=== PATIENT | female | born 1935 | race American Indian/Alaskan Native ===

== ENCOUNTER 2018-02-27 11:54 | Inpatient (IN) | payer MEDICARE ==
--- NOTE | 2018-02-27 12:36 | ED PDOC ---
Arrival/HPI - General Chief Complaint: Shortness Of Breath Time Seen by Provider: 02/27/18 12:32 Historian: Patient - History of Present Illness Narrative History of Present Illness (Text): 02/27/18 12:36 82 year old female, with past medical history of hypertension, diabetes and hyperlipidemia, presents to the Emergency Department accompanied by daughter complaining of shortness of breath associated with non-productive cough since last night. Patient informs worsening symptoms this morning prompting her to present to the Emergency Department for medical evaluation. Patient states mild chest wall discomfort and bilateral ribcage discomfort secondary to coughing. Patient informs associated subjective fever prior to onset but none today. Patient denies any recent sick contact or hospitalization. Patient denies any nausea, vomiting, diarrhea, abdominal pain, neck pain, back pain, dysuria, hematuria, headache, dizziness, or any other complaints. PMD: Dr. Phillips Time/Duration: 4-6 hours Symptom Onset: Gradual Symptom Course: Worsening Activities at Onset: Light Context: Home Past Medical History - Provider Review Nursing Documentation Reviewed: Yes - Cardiac Hx Cardiac Disorders: Yes Hx Hypertension: Yes - Pulmonary Hx Respiratory Disorders: No - Neurological Hx Neurological Disorder: No - HEENT Hx HEENT Disorder: Yes Hx Blind: Yes - Renal Hx Renal Disorder: No - Endocrine/Metabolic Hx Endocrine Disorders: Yes Hx Diabetes Mellitus Type 2: Yes - Hematological/Oncological Hx Blood Disorders: No - Integumentary Hx Dermatological Disorder: No - Musculoskeletal/Rheumatological Hx Musculoskeletal Disorders: Yes Hx Arthritis: Yes Hx Spinal Stenosis: Yes - Gastrointestinal Hx Gastrointestinal Disorders: No - Genitourinary/Gynecological Hx Genitourinary Disorders: No - Psychiatric Hx Psychophysiologic Disorder: No Hx Substance Use: No - Surgical History Hx Cataract Extraction: Yes Hx Orthopedic Surgery: Yes - Anesthesia Hx Anesthesia: No Hx Anesthesia Reactions: No Hx Malignant Hyperthermia: No Family/Social History - Physician Review Nursing Documentation Reviewed: Yes Family/Social History: No Known Family HX Smoking Status: Never Smoked Hx Alcohol Use: No Hx Substance Use: No Allergies/Home Meds Allergies/Adverse Reactions: Allergies No Known Allergies Allergy (Verified 09/17/15 17:31) Home Medications: Home Meds Medication Instructions Recorded Confirmed Aspirin [Ecotrin] 81 mg PO DAILY 02/27/18 02/27/18 Atorvastatin [Lipitor] 20 mg PO DAILY 02/27/18 02/27/18 Clopidogrel [Plavix] 1 tab PO DAILY 02/27/18 02/27/18 Docusate [Colace] 100 mg PO BID 02/27/18 02/27/18 Gabapentin [Neurontin] 1 tab PO TID 02/27/18 02/27/18 Metoprolol Succinate [Toprol Xl] 100 mg PO DAILY 02/27/18 02/27/18 Montelukast [Singulair] 1 tab PO DAILY 02/27/18 02/27/18 Omeprazole 20 mg PO DAILY 02/27/18 02/27/18 amLODIPine [Norvasc] 1 tab PO DAILY 02/27/18 02/27/18 Review of Systems - Physician Review All systems were reviewed & negative as marked: Yes - Review of Systems Constitutional: Fevers (subjective fever) Respiratory: SOB, Cough Cardiovascular: absent: Chest Pain Gastrointestinal: absent: Abdominal Pain, Diarrhea, Nausea, Vomiting Genitourinary Female: absent: Dysuria, Hematuria, Urine Output Changes Musculoskeletal: absent: Back Pain, Neck Pain Neurological: absent: Headache, Dizziness Physical Exam Vital Signs Reviewed: Yes Vital Signs Temp Pulse Resp BP Pulse Ox 02/27/18 12:08 98.9 F 96 H 20 120/54 L 96 Temperature: Afebrile Blood Pressure: Normal Pulse: Regular Respiratory Rate: Normal Appearance: Positive for: Non-Toxic, Comfortable, Other (Obese) Pain Distress: None Mental Status: Positive for: Alert and Oriented X 3 - Systems Exam Head: Present: Atraumatic, Normocephalic Mouth: Present: Moist Mucous Membranes Neck: Present: Normal Range of Motion. No: JVD Respiratory/Chest: Present: Good Air Exchange, Other (Some left base crackles). No: Respiratory Distress, Accessory Muscle Use, Wheezes, Rhonchi, Tender to Palpation (No chest wall tenderness. Bilateral rib cage tenderness. ) Cardiovascular: Present: Regular Rate and Rhythm, Normal S1, S2. No: Murmurs Abdomen: No: Tenderness, Distention, Peritoneal Signs Back: Present: Normal Inspection Upper Extremity: Present: Normal Inspection. No: Cyanosis, Edema Lower Extremity: Present: Normal Inspection, Edema (chronic bilateral +1 pittin edema ) Neurological: Present: GCS=15, CN II-XII Intact, Speech Normal Skin: Present: Warm, Dry, Normal Color. No: Rashes Psychiatric: Present: Alert, Oriented x 3, Normal Insight, Normal Concentration Medical Decision Making ED Course and Treatment: 02/27/18 12:37 Impression: 82 year old female presents to the Emergency Department complaining of shortness of breath and cough. Differential Diagnosis included but are not limited to: Pneumonia Plan: -- EKG -- Labs -- Chest X-ray -- Blood Culture -- Reassess and disposition Prior Visits: Notes and results from previous visits were reviewed. Progress Notes: 02/27/18 12:10 EKG: Ordered, reviewed, and independently interpreted the EKG. Rate : 96 BPM Rhythm : NSR Interpretation : Normal interval, Normal axis. LVH, no st elevation, non specific t wave abnormalities. 02/27/18 14:[address] Cruz, who is aware and agrees with Emergency Department management plan, accepts patient admission under his service and requests Dr. Traylor on consult. As per request, patient will be given IV Lasix and admitted to the hospital. Patient now states she takes Lasix only when she is going to go out. Patient was made aware, who agrees with plan and admission. 02/27/18 15:10 Chest X-ray reviewed by radiologist, shows: FINDINGS: LUNGS: No active pulmonary disease. PLEURA: No significant pleural effusion identified, no pneumothorax apparent. CARDIOVASCULAR: There is moderate vascular congestion. The heart is normal in size. OSSEOUS STRUCTURES: No significant abnormalities. VISUALIZED UPPER ABDOMEN: Normal. OTHER FINDINGS: None. IMPRESSION: Moderate vascular congestion. The heart is normal in size 02/27/18 19:46 - RAD Interpretation Scoop Filler: Radiologist - [place] Statement The provider has reviewed the documentation as recorded by the Holdenibalberta Brown. All medical record entries made by the Leida were at my direction and personally dictated by me. I have reviewed the chart and agree that the record accurately reflects my personal performance of the history, physical exam, medical decision making, and the department course for this patient. I have also personally directed, reviewed, and agree with the discharge instructions and disposition. Disposition/Present on Arrival - Present on Arrival Any Indicators Present on Arrival: No History of DVT/PE: No History of Uncontrolled Diabetes: No Urinary Catheter: No History of Decub. Ulcer: No History Surgical Site Infection Following: None - Disposition Have Diagnosis and Disposition been Completed?: Yes Diagnosis: Dyspnea, Troponin I above reference range, Hyperglycemia Disposition: HOSPITALIZED Disposition Time: 14:20 Patient Plan: Admission Condition: STABLE
[2018-02-27 13:19] LABS: BASO # 0.01 K/mm3 (0.0-2.0); BASO % 0.1 % (0.0-3.0); EOS % 0.2 % (1.5-5.0); GRAN # 9.3 (1.4-6.5); GRAN % 86.9 % (50.0-68.0); HEMOGLOBIN 10.7 g/dL (12.0-16.0); LYMPH # 0.8 (1.2-3.4); LYMPH % 7.9 % (22.0-35.0); MEAN CELL VOLUME 88.2 fl (80.0-105.0); MEAN CORPUSCULAR HEMOGLOBIN 27.4 pg (25.0-35.0); MEAN CORPUSCULAR HGB CONC 31.1 g/dl (31.0-37.0); MEAN PLATELET VOLUME 11.3 fl (7.0-11.0); MONO # 0.5 (0.1-0.6); MONO % 4.9 % (1.0-6.0); RBC 3.9 10^6/uL (3.5-6.1); RED CELL DISTRIBUTION WIDTH 14.3 % (11.5-14.5); WHITE BLOOD COUNT 10.7 10^3/ul (4.5-11.0)
[2018-02-27 13:36] LABS: ALB/GLOB RATIO 1.1 (1.1-1.8); ALBUMIN 3.9 g/dL (3.0-4.8); ALT/SGPT 26 U/L (7-56); AST/SGOT 46 U/L (14-36); BLOOD UREA NITROGEN 9 mg/dL (7-21); CALCIUM 8.6 mg/dL (8.4-10.5); GFR NON-AFRICAN AMERICAN > 60
[2018-02-27 13:37] LABS: B-TYPE NATRIURETIC PEPTIDE 270 pg/mL (0-450); TROPONIN I 0.11 ng/mL
--- NOTE | 2018-02-27 13:56 | RAD ---
Date of service: 02/27/2018 HISTORY: cough, sob COMPARISON: No prior. FINDINGS: LUNGS: No active pulmonary disease. PLEURA: No significant pleural effusion identified, no pneumothorax apparent. CARDIOVASCULAR: There is moderate vascular congestion. The heart is normal in size. OSSEOUS STRUCTURES: No significant abnormalities. VISUALIZED UPPER ABDOMEN: Normal. OTHER FINDINGS: None. IMPRESSION: Moderate vascular congestion. The heart is normal in size
--- NOTE | 2018-02-27 14:58 | CARD ---
APPROVED REPORT Date of service: 02/27/2018 EKG Measurement Heart [id number] <Conclusion> Normal sinus rhythm Minimal voltage criteria for LVH, may be normal variant Nonspecific T wave abnormality Abnormal ECG
[2018-02-27] MEDS ORDERED: Enoxaparin 40 mg Syringe SC SCH (16:45)
[2018-02-27] MEDS ORDERED: TraMADol/Apap 37.5/325 mg Tab PO PRN (16:47)
[2018-02-27 17:22] LABS: IRON 34 ug/dL (45-180)
[2018-02-27 17:32] LABS: % IRON SATURATION 14 % (20-55); TOTAL IRON BINDING CAPACITY 240 ug/dL (265-497)
[2018-02-27 17:43] LABS: FREE T4 1.17 ng/dL (0.78-2.19); T4 8.3 ug/dL (5.5-11.0)
[2018-02-27 17:50] LABS: TROPONIN I 0.5 ng/mL
[2018-02-27 17:56] LABS: T3 0.94 ng/mL (0.97-1.69)
[2018-02-27] MEDS ORDERED: Enoxaparin 120 mg Syringe SC SCH (18:15)
[2018-02-27] MEDS: Lidocaine 5% Patch TD SCH (18:17)
[2018-02-27] MEDS: Insulin Lispro (humaLOG) MIX 75/25(10 ml) SC SCH (18:18)
[2018-02-27 18:25] VITALS: BMI 37.1
[2018-02-27] MEDS ORDERED: Enoxaparin 80 mg Syringe SC STA (19:35)
[2018-02-27 21:19] LABS: TRANSFERRIN 180.17 mg/dL (206-381)
[2018-02-27 22:20] LABS: FOLATE 19.2 ng/mL
[2018-02-27] MEDS ORDERED: cefTRIAXone 2 GM IN NS 2 GM/100 ML BAG IVPB STA (22:36)
[2018-02-27] MEDS ORDERED: Influenza Vaccine 60 mcg/0.5 mL SYR (4YR UP) IM ONE (23:00)
[2018-02-27] MEDS ORDERED: Pneumococcal 23-Valent Vaccine IM ONE (23:00)
[2018-02-28 00:49] LABS: CK-MB 4.5 ng/mL (0.0-3.6); TROPONIN I 0.71 ng/mL
[2018-02-28] MEDS: Levalbuterol 1.25 MG/3 ML Inhal Soln UD IH SCH ×4 (01:21→19:45)
[2018-02-28 04:18] LABS: HEMOGLOBIN 10.3 g/dL (12.0-16.0); MEAN CELL VOLUME 88.1 fl (80.0-105.0); MEAN CORPUSCULAR HEMOGLOBIN 27.8 pg (25.0-35.0); MEAN CORPUSCULAR HGB CONC 31.5 g/dl (31.0-37.0); RBC 3.71 10^6/uL (3.5-6.1); RED CELL DISTRIBUTION WIDTH 14.3 % (11.5-14.5); WHITE BLOOD COUNT 7.7 10^3/ul (4.5-11.0)
[2018-02-28 04:25] LABS: INR 1.3; PARTIAL THROMBOPLASTIN TIME 41.5 Seconds (25.1-36.5); PROTHROMBIN TIME 14.9 SECONDS (9.4-12.5)
[2018-02-28 04:57] LABS: ALBUMIN 3.3 g/dL (3.0-4.8); ALT/SGPT 28 U/L (7-56); AST/SGOT 40 U/L (14-36); B-TYPE NATRIURETIC PEPTIDE 2340 pg/mL (0-450); BILIRUBIN,DIRECT 0.4 mg/dL (0.0-0.4); BLOOD UREA NITROGEN 11 mg/dL (7-21); CALCIUM 8.2 mg/dL (8.4-10.5); GFR NON-AFRICAN AMERICAN > 60; TROPONIN I 0.51 ng/mL
[2018-02-28 04:58] LABS: CK-MB 4.1 ng/mL (0.0-3.6)
[2018-02-28] MEDS: Pantoprazole 40 mg EC Tab PO SCH (05:20)
[2018-02-28 05:50] LABS: FRUCTOSAMINE 357 umol/L (190-270)
--- NOTE | 2018-02-28 06:27 | HP ---
HISTORY OF PRESENT ILLNESS: The patient is an 82-year-old female was brought into the [facility] Emergency Room by the ambulance with complaints of increasing shortness of breath in the last 24 hours. Upon detailed investigation, the patient reports that the patient has been having worsening dyspnea on exertion for weeks and months. The patient also reports complaining of chest heaviness with shortness of breath. REVIEW OF SYSTEMS: Fourteen-system review was done, pertinent positive and negative dictated above. CODE STATUS: Full code. ALLERGIES: PER THE [employer]. BMI: As per the [employer] summary page. FAMILY HISTORY: Positive for diabetes, hypertension. OCCUPATIONAL HISTORY: Disabled. SOCIAL HISTORY: Denies smoking. Denies alcohol. Denies drug use. Denies communicable transmissible disease. PAST MEDICAL AND SURGICAL HISTORY: History of hypertension, history of unspecified heart failure, history of type 1 insulin-requiring diabetes mellitus, history of diabetic neuropathy, history of questionable coronary artery disease, history of diabetic neuropathy and history of possible diabetic retinopathy. 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 MEDICATIONS: Are as per the home medications which are reviewed, which include insulin 70/30, Aldactone, Plavix, aspirin, Neurontin and other medications which are reviewed. PAST SURGICAL HISTORY: The patient and the family denies any surgeries. The patient and the family also denies any history of cerebral infarct, denies any history of myocardial infarction, denies any history of angioplasty stent placement. PHYSICAL EXAMINATION: GENERAL: The patient was seen and examined in bed 9 in the emergency room. The patient is seen lying in the stretcher #9. The patient is alert, awake, responsive, in no discomfort. VITAL SIGNS: T-max is 97.8, heart rate 68-74, respiration 18-20, blood pressure 148/88, O2 sat 95%-99%. HEENT: Head: Normocephalic, atraumatic. HEENT examination shows pinkish pale conjunctivae. Anicteric sclerae. No oropharyngeal lesion. No neck rigidity. CHEST: Kyphosis. LUNGS: Examination shows positive creps, crackles bilaterally. Decreased breath sound at the bases. CARDIOVASCULAR: S1, S2. Questionable S4 gallop, positive systolic murmur at left sternal border, right second intercostal space, left second intercostal space. ABDOMEN: Soft, protuberant. Positive bowel sounds. No palpable hepatosplenomegaly noted. GENITALIA: Female. RECTAL: Examination is deferred. EXTREMITIES: Shows 2+ pitting edema of the lower extremity. MUSCULOSKELETAL: Examination shows an elevated body mass index. NEUROLOGIC: The patient is alert, awake, oriented x3, is able to move upper and lower extremities without assistance. Gait examination is not tested. PSYCHIATRIC: Examination is not applicable. DIAGNOSTICS: EKG shows sinus rhythm, questionable left axis deviation, LVH, nonspecific ST changes. Old EKG not available for comparison. DIAGNOSTIC DATA: Lab data shows WBC is within normal limit. Hemoglobin and hematocrit are 10.8 and 31. Platelets are within normal limits. Chemistry shows elevated glucose of greater than 300. Troponin first set was 0.11. Repeat troponin was 0.8. The patient had iron studies done which shows decreased iron, decreased iron saturation. Lipid panel was ordered which is pending. Chest x-ray shows cardiomegaly with increased pulmonary vascular marking and cardiomegaly. TREATMENT IN THE EMERGENCY ROOM: The patient was seen in the emergency room by the ER physician. The patient was given IV Lasix 40 mg and the patient was advised to be admitted to telemetry. IMPRESSION: 1. Acute exacerbation of unspecified congestive heart failure with elevated brain natriuretic peptide and cardiomegaly and increased pulmonary vascular markings on the chest x-ray. 2. Most likely acute non-ST elevation myocardial infarction with elevated troponin and nonspecific ST changes on the EKG. 3. Uncontrolled insulin-requiring diabetes mellitus with hyperglycemia. 4. Anemia of chronic disease versus iron-deficiency anemia with decreasing hemoglobin/hematocrit. 5. Insulin-requiring diabetes mellitus. 6. Hypertension. 7. History of unspecified heart failure. 8. History of anemia as per the daughter, etiology unclear. 9. History of diabetic retinopathy. 10. History of obesity. 11. History of lumbar spine degenerative disc disease, foramen stenosis and central stenosis. 12. Bilateral lower extremity venous stasis. PLAN: At this time, the patient has been admitted to telemetry. The patient is started on serial labs, serial cardiac enzymes, serial troponin, serial EKG. The patient is started on IV Lasix 40 mg IV every 12. The patient is started on full ACS protocol including aspirin, Plavix, Lovenox, Lipitor. The patient will be started on beta loc. Lopressor 25 mg every 12. The patient has been also ordered CAT scan of the chest, abdomen, pelvis for evaluation of anemia and congestive heart failure. The patient has been ordered gastrointestinal and deep venous thrombosis prophylaxes. The patient is started on Protonix 40 daily. The patient has been ordered insulin sliding scale coverage with basal and bolus immediate acting and long acting insulin. The patient has been put on sliding scale coverage before meals and at bedtime. The patient has been ordered SCDs and DARRYN stockings. Venous Doppler of the lower extremities are ordered. The patient has been ordered repeat cardiac enzymes, repeat EKG ordered. Echo with Doppler ordered. CONSULTATION: Cardiology consultation ordered with Dr. Levi Traylor. At present, the patient's condition, diagnosis, test results, recommendation by all the physicians involved in the care of the patient has been explained to the patient and the patient's family at length and all questions concerned answered, which they acknowledged and understood. At present, the patient's further management will be dependent upon the patient's clinical condition, hemodynamic status and as per the patient's response to therapeutic intervention, as per the patient's diagnostic test results and as per recommendation by Cardiology and as per the patient's objective and subjective data. Dictated and electronically signed, not read. Lucio Cruz MD
[2018-02-28] MEDS ORDERED: Ergocalciferol 50,000 Intl Units Cap PO SCH (08:00)
--- NOTE | 2018-02-28 09:21 | US ---
HISTORY: Leg pain and swelling. Evaluate for DVT PHYSICIAN(S): Levi Avila MD. TECHNIQUE: Duplex sonography and color-flow Doppler with graded compression were used to evaluate the deep venous systems of both lower extremities. The exam is very limited by body habitus and edema. The lower femoral veins and tibial veins are not adequately seen. FINDINGS: The visualized deep venous systems of both lower extremities are sonographically normal and compressible. Normal wave forms and augmentation are seen. There is no sonographic evidence for deep venous thrombosis in the visualized segments of both lower extremities. IMPRESSION: No sonographic evidence for deep venous thrombosis in the visualized segments of both lower extremities. Very limited study.
--- NOTE | 2018-02-28 09:34 | CARD ---
APPROVED REPORT Date of service: 02/28/2018 EKG Measurement Heart [id number] <Conclusion> Normal sinus rhythm Minimal voltage criteria for LVH, may be normal variant
--- NOTE | 2018-02-28 09:56 | CARD ---
APPROVED REPORT Date of service: 02/28/2018 EKG Measurement Heart [id number] <Conclusion> Normal sinus rhythm Minimal voltage criteria for LVH, may be Normal Variant.
[2018-02-28] MEDS ORDERED: Enoxaparin 120 mg Syringe SC SCH ×2 (10:00)
[2018-02-28] MEDS: Lidocaine 5% Patch TD SCH (10:22)
[2018-02-28] MEDS: Insulin Lispro (humaLOG) MIX 75/25(10 ml) SC SCH ×2 (10:23→17:28)
[2018-02-28] MEDS: Potassium Chloride 20 mEq ER Tab PO ONE ×4 (10:23→21:57)
[2018-02-28] MEDS: Insulin Lispro (humaLOG) MEDIUM Coverage SC SCH ×3 (10:23→17:27)
[2018-02-28] MEDS: cefTRIAXone 2 GM IN NS 2 GM/100 ML BAG IVPB SCH ×2 (10:25→14:35)
--- NOTE | 2018-02-28 11:21 | CT ---
Date of service: 02/27/2018 PROCEDURE: CT Chest, Abdomen and Pelvis without intravenous contrast HISTORY: ANEMIA/CHF COMPARISON: None available. TECHNIQUE: Radiation dose: Total exam DLP = 1692 mGy-cm. This CT exam was performed using one or more of the following dose reduction techniques: Automated exposure control, adjustment of the mA and/or kV according to patient size, and/or use of iterative reconstruction technique. FINDINGS: CT CHEST WITHOUT CONTRAST: LUNGS: Patchy right-sided infiltrates are seen especially around the right hilum. The left side is unremarkable. Findings are most likely secondary to CHF. Pneumonia cannot be excluded MEDIASTINUM: Unremarkable. Normal caliber aorta and pulmonary arterial trunk. Normal size heart. LYMPH NODES: Unremarkable. PLEURA: Unremarkable. No pneumothorax. No pleural fluid. BONES: Unremarkable. OTHER FINDINGS: There enlargement of the left lobe of the thyroid measuring 9 cm in length by 4.2 x 4.8 cm diameter. This displaces the trachea to the right. CT ABDOMEN AND PELVIS: LIVER: Unremarkable. No gross lesion or ductal dilatation. GALLBLADDER AND BILE DUCTS: 19 x 29 mm gallstone PANCREAS: There is fatty infiltration and atrophy of the pancreas SPLEEN: Unremarkable. ADRENALS: Unremarkable. No mass. KIDNEYS AND URETERS: Unremarkable. No hydronephrosis. No solid mass. VASCULATURE: Unremarkable. No aortic aneurysm. BOWEL: Unremarkable. No obstruction. No gross mural thickening. APPENDIX: Normal appendix. PERITONEUM: Unremarkable. No free fluid. No free air. LYMPH NODES: Unremarkable. No enlarged lymph nodes. BLADDER: Unremarkable. REPRODUCTIVE: Unremarkable. BONES: Multilevel severe disc degeneration OTHER FINDINGS: The report concurs with the preliminary [facility] report IMPRESSION: Patchy right-sided perihilar infiltrates most consistent with CHF cannot be excluded. Enlarged left lobe of the thyroid. Large gallstone.
[2018-02-28] MEDS ORDERED: Lidocaine 2% PF (10 ml) Amp ONE (11:58)
[2018-02-28] MEDS ORDERED: Phenylephrine 10 mg/ml Inj ONE (11:58)
[2018-02-28] MEDS ORDERED: Iohexol 350mgl/ml 50 ML ONE (11:58)
[2018-02-28] MEDS ORDERED: Iodixanol 320 MG/ML 200 ML BOTTLE IV ONE (11:59)
[2018-02-28] MEDS ORDERED: Nitroglycerin 50mg in D5W 0 MG/0 ML BOTTLE IV ONE (11:59)
[2018-02-28] MEDS ORDERED: Iodixanol 320 MG/ML 100 ML BOTTLE IV ONE (11:59)
[2018-02-28] MEDS ORDERED: Midazolam 2 MG/2 ML VIAL ONE ×2 (12:24→12:41)
[2018-02-28] MEDS ORDERED: Morphine 2 mg/ml ISec ONE (12:51)
[2018-02-28] MEDS ORDERED: Sodium Chloride 0.9% 1,000 ML IV SCH (13:30)
--- NOTE | 2018-02-28 15:57 | CARDCATH ---
PROCEDURE DATE: 02/28/2018 EMERGENCY CARDIAC CATHETERIZATION HISTORY: The patient is an 82-year-old woman with a history of hypertension and diabetes mellitus who presents with onset of shortness of breath associated with chest pain and cough. She was found to have elevated troponins with an abnormal EKG with a presumptive diagnosis of a non-STEMI with dyspnea and acute coronary syndrome, the patient was brought up for an emergency cardiac catheterization. PROCEDURE: Left heart catheterization with coronary arteriography and left ventriculogram. The right femoral artery was cannulated with a 6-[place] sheath. There were no complications. The patient was pretreated with sublingual nitroglycerin for her hypertension. I performed moderate sedation, which included the presence of an independent trained observer who assisted in monitoring the patient's physiologic status and consciousness. After administration of fentanyl, Versed, and morphine, my intra-service time was 30 minutes. The findings on catheterization revealed a left ventricle that contracted normally. Estimated ejection fraction of 60%. The patient had a left dominant circulation. The RCA revealed intimal irregularities with a 50% stenoses in the midportion of a small RCA. The left main artery was unremarkable. The LAD and diagonal vessels revealed intimal irregularities without critical lesions. The dominant circumflex artery revealed intimal irregularities without critical lesions. Angio-Seal was used to close the femoral artery site. The patient tolerated the procedure well. In summary, the procedure revealed 50% stenoses in a small nondominant RCA. No other cardiac critical lesions were noted. LV function is normal. Given these findings, we will preliminarily heparinize the patient several hours after hemostasis. Afterwards, we will obtain a CT scan to rule out a pulmonary embolism as an explanation for her elevated troponins. We will do that in the morning after hydration. Levi Traylor MD
[2018-02-28] MEDS: Enoxaparin 120 mg Syringe SC SCH (18:20)
--- NOTE | 2018-02-28 20:42 | CP.PCM.CON ---
History of Present Illness - History of Present Illness History of Present Illness: 82 year old female with PMH of HTN, DM, dyslipidemia, obesity with BMI 38 came in to [facility] because of shortness of breath with non-productive cough which started 1-2 days ago. She also had some chest discomfort when these started to happen. She denies fever or chills, no sore throat, no rhinorrhea, no abdominal pain, no nausea or vomiting, no headache or dizziness, no diarrhea, no dysuria, denies sick contacts, has not traveled outside of [place] in the past 3 months, denies being on antibiotics in the past 3 months, denies hospitalization in the past [address] chest is showing right sided infiltrates. Infectious Diseases consult is requested to further evaluate and manage. 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 - RENAL Hx Chronic Kidney Disease: No - ENDOCRINE/METABOLIC Hx Endocrine Disorders: Yes Hx Diabetes Mellitus Type 2: Yes - HEMATOLOGICAL/ONCOLOGICAL Hx Blood Disorders: No - INTEGUMENTARY Hx Dermatological Problems: Yes Other/Comment: discolored feet and legs - MUSCULOSKELETAL/RHEUMATOLOGICAL Hx Falls: No - GASTROINTESTINAL Hx Gastrointestinal Disorders: Yes (obese) - GENITOURINARY/GYNECOLOGICAL Hx Genitourinary Disorders: Yes (mammo 2015) Hx Incontinence: Yes - PSYCHIATRIC Hx Substance Use: No - SURGICAL HISTORY Hx Surgeries: Yes Hx Orthopedic Surgery: Yes Other/Comment: b/l cataract sx - ANESTHESIA Hx Anesthesia: No Hx Anesthesia Reactions: No Hx Malignant Hyperthermia: No Meds Allergies/Adverse Reactions: Allergies Allergy/AdvReac Type Severity Reaction Status Date / Time No Known Allergies Allergy Verified 09/17/15 17:31 - Medications Medications: Current Medications Acetaminophen (Tylenol 325mg Tab) 650 mg PO Q6 PRN PRN Reason: TEMP>=99.5F Last Admin: 02/27/18 17:15 Dose: 650 mg Acetaminophen (Tylenol 650 Mg Supp) 650 mg RC Q6H PRN PRN Reason: TEMP>=99.5F Aspirin (Ecotrin) 81 mg PO DAILY [facility] Last Admin: 02/27/18 17:16 Dose: Not Given Atorvastatin Calcium (Lipitor) 40 mg PO DAILY [facility] Last Admin: 02/27/18 17:15 Dose: 40 mg Baclofen (Lioresal) 10 mg PO Q8H [facility] Last Admin: 02/28/18 01:03 Dose: 10 mg Clopidogrel Bisulfate (Plavix) 75 mg PO DAILY [facility] Last Admin: 02/27/18 17:16 Dose: Not Given Diphenhydramine HCl (Benadryl) 25 mg PO Q6 PRN PRN Reason: Allergy symptoms Docusate Sodium (Colace) 100 mg PO TID [facility] Last Admin: 02/27/18 18:20 Dose: Not Given Enoxaparin Sodium (Lovenox) 110 mg SC Q24H [facility]; Protocol Furosemide (Lasix) 40 mg IVP Q12H [facility] Last Admin: 02/28/18 05:20 Dose: 40 mg Gabapentin (Neurontin) 100 mg PO HS [facility]; Protocol Last Admin: 02/27/18 23:00 Dose: 100 mg Iron Sucrose 200 mg/ Sodium (Chloride) 110 mls @ 110 mls/hr IVPB DAILY [facility] Stop: 03/03/18 10:59 Last Admin: 02/27/18 19:33 Dose: 110 mls/hr Ceftriaxone Sodium (Rocephin 2 Gm Ivpb) 2 gm in 100 mls @ 100 mls/hr IVPB DAILY [facility]; Protocol Doxycycline Hyclate 100 mg/ (Sodium Chloride) 100 mls @ 100 mls/hr IVPB Q12 [facility]; Protocol Last Admin: 02/28/18 00:11 Dose: 100 mls/hr Insulin Human Lispro (Humalog Med) 0 units SC AC [facility]; Protocol Insulin Lispro Protam/Lispro Human (Humalog Mix 75/25) [facility]ulin Lispro Protam/Lispro Human (Humalog Mix 75/25) 10 units SC DAILY@1745 [facility] Last Admin: 02/27/18 18:18 Dose: 10 units Levalbuterol HCl (Xopenex) 0.63 mg IH [id number] [facility] Last Admin: 02/28/18 01:21 Dose: 0.62 mg Lidocaine (Lidoderm) 1 ea TD DAILY [facility] Last Admin: 02/27/18 18:17 Dose: 1 ea Metoprolol Tartrate (Lopressor) 25 mg PO Q12 [facility] Last Admin: 02/27/18 23:01 Dose: 25 mg Montelukast Sodium (Singulair) 10 mg PO HS [facility] Last Admin: 02/27/18 23:00 Dose: 10 mg Ondansetron HCl (Zofran Inj) 4 mg IVP Q4H PRN PRN Reason: Nausea/Vomiting Pantoprazole Sodium (Protonix Ec Tab) 40 mg PO 0600 [facility] Last Admin: 02/28/18 05:20 Dose: 40 mg Tramadol/Acetaminophen (Ultracet 37.5/325 Mg) 1 tab PO Q8H PRN PRN Reason: Pain, moderate (4-7) Physical Exam - Constitutional Appears: No Acute Distress, Chronically Ill - Head Exam Head Exam: NORMAL INSPECTION - Neck Exam Neck exam: Negative for: Meningismus - Respiratory Exam Respiratory Exam: Decreased Breath Sounds - Cardiovascular Exam Cardiovascular Exam: +S1, +S2 - GI/Abdominal Exam GI & Abdominal Exam: Soft. absent: Tenderness Results - Vital Signs Recent Vital Signs: Last Vital Signs Temp 98.6 F 02/28/18 06:00 Pulse 79 02/28/18 06:00 Resp 19 02/28/18 06:00 BP 138/64 02/28/18 06:00 Pulse Ox 94 L 02/28/18 06:00 - Labs Result Diagrams: 02/28/18 04:01 02/28/18 04:01 Labs: Laboratory Results - last 24 hr 02/27/18 02/27/18 02/27/18 13:00 13:00 13:16 WBC 10.7 RBC 3.90 Hgb 10.7 L Hct 34.4 L MCV 88.2 MCH 27.4 MCHC 31.1 RDW 14.3 Plt Count 169 MPV 11.3 H Gran % 86.9 H Lymph % (Auto) 7.9 L [place] % (Auto) 4.9 Eos % (Auto) 0.2 L Baso % (Auto) 0.1 Gran # 9.30 H Lymph # (Auto) 0.8 L [place] # (Auto) 0.5 Eos # (Auto) 0.0 Baso # (Auto) 0.01 Retic Count PT INR APTT Sodium 136 Potassium 4.0 Chloride 100 Carbon Dioxide 28 Anion Gap 12 BUN 9 Creatinine 0.7 Est GFR ( Amer) > 60 Est GFR (Non-Af Amer) > 60 POC Glucose (mg/dL) 284 H Random Glucose 313 H* Hemoglobin A1c Fructosamine Calcium 8.6 Phosphorus Magnesium 1.9 Iron TIBC % Saturation Transferrin Ferritin Total Bilirubin 2.0 H Direct Bilirubin AST 46 H ALT 26 Alkaline Phosphatase 152 H Lactate Dehydrogenase 651 Total Creatine Kinase 160 CK-MB (CK-2) CK-MB (CK-2) % Troponin I 0.11 NT-Pro-B Natriuret Pep 270 Total Protein 7.5 Albumin 3.9 Globulin 3.5 Albumin/Globulin Ratio 1.1 Triglycerides Cholesterol LDL Cholesterol Direct HDL Cholesterol Vitamin B12 25-OH Vitamin D Total Folate Free T4 Thyroxine (T4) Free T3 pg/mL Total T3 TSH 3rd Generation 02/27/18 02/27/18 02/27/18 17:03 17:03 17:03 WBC RBC Hgb Hct MCV MCH MCHC RDW Plt Count MPV Gran % Lymph % (Auto) [place] % (Auto) Eos % (Auto) Baso % (Auto) Gran # Lymph # (Auto) [place] # (Auto) Eos # (Auto) Baso # (Auto) Retic Count PT INR APTT Sodium Potassium Chloride Carbon Dioxide Anion Gap BUN Creatinine Est GFR ( Amer) Est GFR (Non-Af Amer) POC Glucose (mg/dL) Random Glucose Hemoglobin A1c 7.7 H Fructosamine Calcium Phosphorus Magnesium Iron TIBC % Saturation Transferrin 180.17 L Ferritin 428.0 Total Bilirubin Direct Bilirubin AST ALT Alkaline Phosphatase Lactate Dehydrogenase Total Creatine Kinase CK-MB (CK-2) CK-MB (CK-2) % Troponin I 0.50 H* D NT-Pro-B Natriuret Pep Total Protein Albumin Globulin Albumin/Globulin Ratio Triglycerides 68 Cholesterol 186 LDL Cholesterol Direct 75 HDL Cholesterol 68 H Vitamin B12 342 25-OH Vitamin D Total Folate 19.2 Free T4 1.17 Thyroxine (T4) 8.3 Free T3 pg/mL 2.89 Total T3 0.94 L TSH 3rd Generation 1.29 02/27/18 02/27/18 02/27/18 17:03 17:03 17:03 WBC RBC Hgb Hct MCV MCH MCHC RDW Plt Count MPV Gran % Lymph % (Auto) [place] % (Auto) Eos % (Auto) Baso % (Auto) Gran # Lymph # (Auto) [place] # (Auto) Eos # (Auto) Baso # (Auto) Retic Count PT INR APTT Sodium Potassium Chloride Carbon Dioxide Anion Gap BUN Creatinine Est GFR ( Amer) Est GFR (Non-Af Amer) POC Glucose (mg/dL) Random Glucose Hemoglobin A1c Fructosamine 357 H Calcium Phosphorus Magnesium Iron 34 L TIBC 240 L % Saturation 14 L Transferrin Ferritin Total Bilirubin Direct Bilirubin AST ALT Alkaline Phosphatase Lactate Dehydrogenase Total Creatine Kinase CK-MB (CK-2) CK-MB (CK-2) % Troponin I NT-Pro-B Natriuret Pep Total Protein Albumin Globulin Albumin/Globulin Ratio Triglycerides Cholesterol LDL Cholesterol Direct HDL Cholesterol Vitamin B12 25-OH Vitamin D Total 18.3 L Folate Free T4 Thyroxine (T4) Free T3 pg/mL Total T3 TSH 3rd Generation 02/27/18 02/27/18 02/27/18 17:03 17:40 23:50 WBC RBC Hgb Hct MCV MCH MCHC RDW Plt Count MPV Gran % Lymph % (Auto) [place] % (Auto) Eos % (Auto) Baso % (Auto) Gran # Lymph # (Auto) [place] # (Auto) Eos # (Auto) Baso # (Auto) Retic Count 2.25 H PT INR APTT Sodium Potassium Chloride Carbon Dioxide Anion Gap BUN Creatinine Est GFR ( Amer) Est GFR (Non-Af Amer) POC Glucose (mg/dL) 290 H Random Glucose Hemoglobin A1c Fructosamine Calcium Phosphorus Magnesium Iron TIBC % Saturation Transferrin Ferritin Total Bilirubin Direct Bilirubin AST ALT Alkaline Phosphatase Lactate Dehydrogenase Total Creatine Kinase 244 H CK-MB (CK-2) 4.5 H CK-MB (CK-2) % Cancelled Troponin I 0.71 H* D NT-Pro-B Natriuret Pep Total Protein Albumin Globulin Albumin/Globulin Ratio Triglycerides Cholesterol LDL Cholesterol Direct HDL Cholesterol Vitamin B12 25-OH Vitamin D Total Folate Free T4 Thyroxine (T4) Free T3 pg/mL Total T3 TSH 3rd Generation 02/28/18 02/28/18 02/28/18 04:01 04:01 04:01 WBC 7.7 D RBC 3.71 Hgb 10.3 L Hct 32.7 L MCV 88.1 MCH 27.8 MCHC 31.5 RDW 14.3 Plt Count 150 MPV 11.0 Gran % Lymph % (Auto) [place] % (Auto) Eos % (Auto) Baso % (Auto) Gran # Lymph # (Auto) [place] # (Auto) Eos # (Auto) Baso # (Auto) Retic Count PT 14.9 H INR 1.30 APTT 41.5 H Sodium 137 Potassium 3.4 L Chloride 103 Carbon Dioxide 30 Anion Gap 8 L BUN 11 Creatinine 0.7 Est GFR ( Amer) > 60 Est GFR (Non-Af Amer) > 60 POC Glucose (mg/dL) Random Glucose 257 H Hemoglobin A1c Fructosamine Calcium 8.2 L Phosphorus 3.3 Magnesium 1.9 Iron TIBC % Saturation Transferrin Ferritin Total Bilirubin 1.5 H Direct Bilirubin 0.4 AST 40 H ALT 28 Alkaline Phosphatase 128 H Lactate Dehydrogenase Total Creatine Kinase 244 H CK-MB (CK-2) 4.1 H CK-MB (CK-2) % Cancelled Troponin I 0.51 H* D NT-Pro-B Natriuret Pep 2340 H Total Protein 6.7 Albumin 3.3 Globulin 3.4 Albumin/Globulin Ratio 1.0 L Triglycerides Cholesterol LDL Cholesterol Direct HDL Cholesterol Vitamin B12 25-OH Vitamin D Total Folate Free T4 Thyroxine (T4) Free T3 pg/mL Total T3 TSH 3rd Generation Assessment & Plan - Assessment and Plan (Free Text) Plan: Assessment consider right sided community-acquired pneumonia, R/O NSTEMI, R/O pulmonary embolism HTN DM dyslipidemia obesity with BMI 38 Plan Started Rocephin and Doxycycline pending blood cx, urine Legionella Ag; PCT is elevated at 1.[address] chest showing right sided infiltrates follow up results of the cardiac cath
[2018-03-01] MEDS: Levalbuterol 1.25 MG/3 ML Inhal Soln UD IH SCH ×4 (01:37→20:33)
[2018-03-01] MEDS: Enoxaparin 120 mg Syringe SC SCH (05:46)
[2018-03-01] MEDS: Pantoprazole 40 mg EC Tab PO SCH (05:46)
[2018-03-01 07:28] LABS: HEMOGLOBIN 10.3 g/dL (12.0-16.0); MEAN CELL VOLUME 89.6 fl (80.0-105.0); MEAN CORPUSCULAR HEMOGLOBIN 27.4 pg (25.0-35.0); MEAN CORPUSCULAR HGB CONC 30.6 g/dl (31.0-37.0); MEAN PLATELET VOLUME 12.4 fl (7.0-11.0); RBC 3.76 10^6/uL (3.5-6.1); RED CELL DISTRIBUTION WIDTH 14.4 % (11.5-14.5); WHITE BLOOD COUNT 6.1 10^3/ul (4.5-11.0)
[2018-03-01 07:43] LABS: B-TYPE NATRIURETIC PEPTIDE 890 pg/mL (0-450)
[2018-03-01] MEDS: Potassium Chloride 20 mEq ER Tab PO SCH ×3 (08:06→17:09)
[2018-03-01] MEDS: Insulin Lispro (humaLOG) MIX 75/25(10 ml) SC SCH ×2 (08:07→17:09)
[2018-03-01 08:08] LABS: ALBUMIN 3.4 g/dL (3.0-4.8); ALT/SGPT 24 U/L (7-56); AST/SGOT 29 U/L (14-36); BILIRUBIN,DIRECT 0.4 mg/dL (0.0-0.4); BLOOD UREA NITROGEN 12 mg/dL (7-21); CALCIUM 8.1 mg/dL (8.4-10.5); GFR NON-AFRICAN AMERICAN > 60
[2018-03-01] MEDS: Insulin Lispro (humaLOG) MEDIUM Coverage SC SCH ×3 (08:09→17:10)
--- NOTE | 2018-03-01 08:10 | CP.PCM.PN ---
Subjective - Date & Time of Evaluation Date of Evaluation: 03/01/18 Time of Evaluation: 07:45 - Subjective Subjective: (covering for Dr. Cruz) Patient is seen this morning. She is feeling better than yesterday she says. Her cough is improving. She denies shortness of breath or chest pain. Objective - Vital Signs/Intake and Output Vital Signs (last 24 hours): Temp Pulse Resp BP Pulse Ox 98.9 F 89 19 104/67 96 03/01/18 06:00 03/01/18 06:00 03/01/18 06:00 03/01/18 06:00 03/01/18 06:00 Intake and Output: 03/01/18 03/01/18 06:59 18:59 Intake Total 1300 Output Total 600 Balance 700 - Medications Medications: Current Medications Acetaminophen (Tylenol 325mg Tab) 650 mg PO Q6 PRN PRN Reason: TEMP>=99.5F Last Admin: 02/27/18 17:15 Dose: 650 mg Acetaminophen (Tylenol 650 Mg Supp) 650 mg RC Q6H PRN PRN Reason: TEMP>=99.5F Aspirin (Ecotrin) 81 mg PO DAILY [facility] Last Admin: 02/28/18 10:24 Dose: Not Given Atorvastatin Calcium (Lipitor) 40 mg PO DAILY [facility] Last Admin: 02/28/18 17:32 Dose: 40 mg Baclofen (Lioresal) 10 mg PO Q8 [facility] Last Admin: 03/01/18 05:46 Dose: 10 mg Diphenhydramine HCl (Benadryl) 25 mg PO Q6 PRN PRN Reason: Allergy symptoms Docusate Sodium (Colace) 100 mg PO TID [facility] Last Admin: 02/28/18 18:00 Dose: Not Given Enoxaparin Sodium (Lovenox) 110 mg SC Q12H [facility]; Protocol Last Admin: 03/01/18 05:46 Dose: 110 mg Ergocalciferol (Drisdol 50,000 Intl Units Cap) 1 cap PO Q7D [facility] Last Admin: 02/28/18 17:31 Dose: 1 cap Furosemide (Lasix) 40 mg IVP Q12H [facility] Last Admin: 03/01/18 05:45 Dose: 40 mg Gabapentin (Neurontin) 100 mg PO HS [facility]; Protocol Last Admin: 02/28/18 21:56 Dose: 100 mg Iron Sucrose 200 mg/ Sodium (Chloride) 110 mls @ 110 mls/hr IVPB DAILY [facility] Stop: 03/03/18 10:59 Last Admin: 02/28/18 16:22 Dose: 110 mls/hr Ceftriaxone Sodium (Rocephin 2 Gm Ivpb) 2 gm in 100 mls @ 100 mls/hr IVPB DAILY [facility]; Protocol Stop: 03/04/18 10:59 Last Admin: 02/28/18 14:35 Dose: 100 mls/hr Doxycycline Hyclate 100 mg/ (Sodium Chloride) 100 mls @ 100 mls/hr IVPB Q12 [facility]; Protocol Last Admin: 02/28/18 21:56 Dose: 100 mls/hr Insulin Human Lispro (Humalog Med) 0 units SC AC [facility]; Protocol Last Admin: 02/28/18 17:27 Dose: 5 units Insulin Lispro Protam/Lispro Human (Humalog Mix 75/25) 20 units SC ACB [facility] Last Admin: 02/28/18 10:23 Dose: Not Given Insulin Lispro Protam/Lispro Human (Humalog Mix 75/25) 10 units SC DAILY@1745 [facility] Last Admin: 02/28/18 17:28 Dose: 10 units Levalbuterol HCl (Xopenex) 0.63 mg IH [id number] [facility] Last Admin: 03/01/18 01:37 Dose: 0.63 mg Lidocaine (Lidoderm) 1 ea TD DAILY [facility] Last Admin: 02/28/18 10:22 Dose: Not Given Metoprolol Tartrate (Lopressor) 25 mg PO Q12 [facility] Last Admin: 02/28/18 21:56 Dose: 25 mg Montelukast Sodium (Singulair) 10 mg PO HS [facility] Last Admin: 02/28/18 21:56 Dose: 10 mg Ondansetron HCl (Zofran Inj) 4 mg IVP Q4H PRN PRN Reason: Nausea/Vomiting Pantoprazole Sodium (Protonix Ec Tab) 40 mg PO 0600 [facility] Last Admin: 03/01/18 05:46 Dose: 40 mg Potassium Chloride (K-Dur 20 Meq Er Tab) 20 meq PO BID [facility] Tramadol/Acetaminophen (Ultracet 37.5/325 Mg) 1 tab PO Q8H PRN PRN Reason: Pain, moderate (4-7) Last Admin: 02/28/18 15:09 Dose: 1 tab - Labs Labs: 03/01/18 06:00 PT 14.9 SECONDS (9.4-12.5) H 02/28/18 04:01 INR 1.30 02/28/18 04:01 APTT 41.5 Seconds (25.1-36.5) H 02/28/18 04:01 - Constitutional Appears: No Acute Distress - Head Exam Head Exam: ATRAUMATIC, NORMOCEPHALIC - Respiratory Exam Respiratory Exam: Rhonchi, NORMAL BREATHING PATTERN - Cardiovascular Exam Cardiovascular Exam: REGULAR RHYTHM, +S1, +S2 - GI/Abdominal Exam GI & Abdominal Exam: Soft, Normal Bowel Sounds. absent: Tenderness - Extremities Exam Extremities Exam: Normal Inspection - Neurological Exam Neurological Exam: Alert, Awake, Oriented x3 Assessment and Plan - Assessment and Plan (Free Text) Assessment: Congestive heart failure Elevated troponin Infiltrates seen on CT chest r/o pneumonia HTN Diabetes mellitus Obesity Plan: Patient is seen this morning. She says her cough is improving. continue antibiotics as per infectious disease. Patient went for cardiac catheterization yesterday for elevated troponin. No critical lesions were seen. Echocardiogram done but report is pen ding. continue IV Lasix. CT chest with contrast is pending to rule out pulmonary embolism. Doppler of the lower extremities is negative for DVT.
--- NOTE | 2018-03-01 09:21 | PN ---
DATE: 03/01/2018 CARDIOLOGY FOLLOWUP SUBJECTIVE: The patient is complaining of stiffness in the lower extremities. No chest pain. PHYSICAL EXAMINATION: VITAL SIGNS: Blood pressure is 104/67, heart rate is in the 70s. NECK: Negative JVD. LUNGS: Without rales. HEART: Reveals S1, S2. EXTREMITIES: Without edema. The right groin site is stable. LABORATORY DATA: Glucose is 241, hemoglobin is 10.3. IMPRESSION: 1. Status post dyspnea, which is now resolved. 2. Status post chest pain, which is resolved. 3. Catheterization reveals no critical coronary artery disease. 4. Normal left ventricular function. PLAN: Given these findings, a CT scan has been ordered to rule out pulmonary embolism as a cause of her elevated troponins. If the CT scan is negative for pulmonary embolism, we will discontinue her Lovenox. Levi Traylor MD
[2018-03-01] MEDS: Lidocaine 5% Patch TD SCH (10:51)
[2018-03-01] MEDS: cefTRIAXone 2 GM IN NS 2 GM/100 ML BAG IVPB SCH (10:57)
--- NOTE | 2018-03-01 11:38 | CARD ---
APPROVED REPORT Date of service: 03/01/2018 EKG Measurement Heart [id number] <Conclusion> Normal sinus rhythm Moderate voltage criteria for LVH, may be normal variant Borderline ECG
[2018-03-01] MEDS ORDERED: Iohexol 350 MG/100 ML VIAL ONE ×2 (13:22→13:58)
--- NOTE | 2018-03-01 15:54 | CT ---
Date of service: 03/01/2018 PROCEDURE: CT Chest with contrast (Pulmonary Angiogram) HISTORY: ? pul embolism COMPARISON: 02/27/2018 TECHNIQUE: Axial computed tomography images were obtained of the chest in the pulmonary arterial phase of enhancement. Coronal and sagittal reformatted images were created and reviewed. Intravenous contrast dose: 100 mL Omnipaque 350 Radiation dose: Total exam DLP = 473.87 mGy-cm. This CT exam was performed using one or more of the following dose reduction techniques: Automated exposure control, adjustment of the mA and/or kV according to patient size, and/or use of iterative reconstruction technique. FINDINGS: PULMONARY ARTERIES: Unremarkable. No pulmonary embolism. AORTA: No acute findings. No thoracic aortic aneurysm. LUNGS: Multifocal infiltrate right upper lobe, middle lobe and lower lobe. The extent of consolidation the right upper lobe has increased somewhat when compared to the prior examination. Subsegmental atelectasis noted in the left lower lobe. PLEURAL SPACES: Unremarkable. No effusion or pneumothorax. HEART: Unremarkable. No cardiomegaly. No significant pericardial effusion. LYMPH NODES: No lymphadenopathy. BONES, CHEST WALL: Unremarkable. No fracture or destructive lesion OTHER FINDINGS: Multinodular goiter arising from left lobe of thyroid. Correlate with thyroid ultrasound examination. IMPRESSION: No evidence of pulmonary embolism. Multifocal right sided pulmonary infiltrate involving all 3 lobes. No pleural effusion. Incidental multinodular goiter.
--- NOTE | 2018-03-01 16:51 | PN ---
DATE: 03/01/2018 SUBJECTIVE: The patient is in bed, in no acute distress. PHYSICAL EXAMINATION: VITAL SIGNS: Temperature is 98, blood pressure is 140/60, respiratory rate of 18, heart rate of 102. HEENT: Examination of HEENT is unremarkable. NECK: Supple. LUNGS: Have decreased breath sounds. HEART: Normal S1 and S2. ABDOMEN: Soft, nontender. LABORATORY DATA: Laboratory examination reveals the white count of 6.1, hemoglobin of 10, platelet of 196, BUN of 12, creatinine of 0.7. Serology is noted. Urine Legionella is negative. Microbiology reveals the blood cultures are negative. Dr. Levi Traylor's note is reviewed. ASSESSMENT AND PLAN: An 82-year-old female who was seen earlier in 271, bed 2 with a history of diabetes and hypertension, dyslipidemia, obesity, body mass index of 38, who was admitted with shortness of breath, nonproductive cough with a right-sided community-acquired pneumonia, hypertension, diabetes, on ceftriaxone and doxycycline. Procalcitonin elevated. She has a right-sided infiltrates. Pulmonary embolism is being ruled out. The patient is on ceftriaxone currently and doxycycline. We will change the doxycycline from IV to p.o. The patient is scheduled for a CT angio to rule out pulmonary embolism. We will order a D-dimer and nasal methicillin-resistant Staphylococcus aureus. We will follow with you. Andres Naylor MD
[2018-03-02] MEDS: Levalbuterol 1.25 MG/3 ML Inhal Soln UD IH SCH ×4 (02:00→20:03)
[2018-03-02] MEDS: Pantoprazole 40 mg EC Tab PO SCH (06:01)
[2018-03-02] MEDS: Insulin Lispro (humaLOG) MIX 75/25(10 ml) SC SCH ×2 (07:51→18:09)
[2018-03-02 07:52] LABS: HEMOGLOBIN 10.5 g/dL (12.0-16.0); MEAN CELL VOLUME 88.7 fl (80.0-105.0); MEAN CORPUSCULAR HEMOGLOBIN 27.6 pg (25.0-35.0); MEAN CORPUSCULAR HGB CONC 31.1 g/dl (31.0-37.0); MEAN PLATELET VOLUME 11.9 fl (7.0-11.0); RBC 3.81 10^6/uL (3.5-6.1); RED CELL DISTRIBUTION WIDTH 14.3 % (11.5-14.5); WHITE BLOOD COUNT 5.9 10^3/ul (4.5-11.0)
[2018-03-02] MEDS: Insulin Lispro (humaLOG) MEDIUM Coverage SC SCH ×3 (07:52→15:55)
[2018-03-02 08:06] LABS: B-TYPE NATRIURETIC PEPTIDE 262 pg/mL (0-450)
[2018-03-02 08:09] LABS: ALBUMIN 3.5 g/dL (3.0-4.8); ALT/SGPT 31 U/L (7-56); AST/SGOT 22 U/L (14-36); BILIRUBIN,DIRECT 0.5 mg/dL (0.0-0.4); BLOOD UREA NITROGEN 17 mg/dL (7-21); CALCIUM 8.6 mg/dL (8.4-10.5); GFR NON-AFRICAN AMERICAN > 60
[2018-03-02] MEDS: cefTRIAXone 2 GM IN NS 2 GM/100 ML BAG IVPB SCH (10:44)
[2018-03-02] MEDS: Lidocaine 5% Patch TD SCH (10:44)
[2018-03-02] MEDS: Potassium Chloride 20 mEq ER Tab PO SCH ×2 (10:46→18:02)
--- NOTE | 2018-03-02 14:46 | PN ---
DATE: 03/02/2018 SUBJECTIVE: The patient is in bed, in no acute distress, nontoxic, was seen earlier this morning in room 271, bed 2. No fevers and chills. PHYSICAL EXAMINATION: VITAL SIGNS: On exam, temperature is 98, blood pressure is 117/50, respiratory rate of 18, heart rate of 93. HEENT: Examination of HEENT is unremarkable. NECK: Supple. LUNGS: Have decreased breath sounds. HEART: Normal S1, S2. ABDOMEN: Soft, nontender. LABORATORY DATA: Laboratory examination reveals a white count of 5.9, hemoglobin of 10, platelets of 206. Chemistries are noted. BUN of 17, creatinine of 0.8. LFTs are noted. Alk phos is elevated at 130. Stool for occult blood is negative and urine for Legionella antigen is negative. Microbiology reveals the blood cultures are negative and the patient's procalcitonin is 1.24. ASSESSMENT AND PLAN: An 82-year-old female who was seen earlier this morning with history of diabetes, hypertension, dyslipidemia, obesity with body mass index of 38, admitted with shortness of breath, nonproductive cough and right-sided community-acquired pneumonia and elevated procalcitonin, currently on doxycycline, ceftriaxone and CT angio is negative. The patient had a CAT scan of the chest on 02/27/2018 with a patchy right-sided infiltrate. Complete with p.o. antibiotics. The patient's EKG does show QTC of 485. Maybe able to complete with p.o. doxycycline at 100 mg p.o. b.i.d. x 5-7 days and follow the imaging to resolution. If it does not resolve, will need further workup and the patient's procalcitonin is 1.24. We will repeat that today to see if its trend has improved. If the repeat procalcitonin is negative with trending down within normal limits, we will discontinue ceftriaxone and complete with p.o. doxycycline and check on the final blood culture results. Andres Naylor MD
--- NOTE | 2018-03-02 15:09 | PN ---
DATE: 03/02/2018 SUBJECTIVE: The patient is without shortness of breath. After an episode of nausea today, she is now eating without issues. PHYSICAL EXAMINATION: VITAL SIGNS: Blood pressure 132/70, heart rate is in the 70s. NECK: Negative JVD. LUNGS: Without rales. HEART: S1, S2. EXTREMITIES: Without edema. LABORATORY DATA: Hemoglobin is 10.5. Chemistries, BUN and creatinine unremarkable. Glucose is 193. IMPRESSION 1. Dyspnea, which is now resolved. 2. Chest pain which is resolved. 3. No critical coronary artery disease. 4. Normal left ventricular function. Given these findings, the patient's cardiac status is stable. We will decrease her Lasix to once a day. Levi Traylor MD
--- NOTE | 2018-03-02 22:03 | PN ---
DATE: 03/02/2018 SUBJECTIVE: The patient is seen in room 271, bed 2. The patient is out of bed to chair. The patient's daughter is at bedside. The patient does not appear to be in any distress. REVIEW OF SYSTEMS: A 14-system review was negative for chest pain, negative shortness of breath, negative for nausea, vomiting, negative for diarrhea, negative for bleeding, negative hemoptysis, hematemesis and melena. PHYSICAL EXAMINATION: VITAL SIGNS: Telemetry shows sinus rhythm; heart rate between 85, 78, 74; T-max 98.8; respiration 18; blood pressure 117/54, 132/70; O2 sat 94%-100%. GENERAL: The patient is seen sitting up in the chair. HEENT: Head is normocephalic, atraumatic. HEENT examination shows pinkish conjunctivae. Anicteric sclerae. No oropharyngeal lesion. No neck rigidity. CHEST: Kyphosis. LUNGS: Examination shows positive crackles, rhonchi, creps bilaterally, right more than the left. CARDIOVASCULAR: S1, S2, regular rhythm. Questionable soft systolic murmur at left sternal border, right second intercostal space, left second intercostal space. ABDOMEN: Soft, obese. Positive bowel sounds. Protuberant, unable to appreciate any palpable hepatosplenomegaly or organomegaly. EXTREMITIES: Shows positive trace to 1+ pitting edema of the lower extremity. No calf tenderness, no Homans' sign. NEUROLOGIC: The patient is alert, awake, responsive, oriented to person, place and time. Motor strength of upper and lower extremities is within normal limit. Neuro examination is grossly without any deficit. DIAGNOSTICS: From 03/02, WBC 5.9, hemoglobin/hematocrit 10.5/34, platelets 200,000. Sodium 138, potassium 4.1 chloride 102, CO2 28, BUN 17, creatinine 0.8, glucose 198, calcium 8.6, phosphorus 3.2, magnesium 1.8. BNP is today normal at 262. Procalcitonin 1.24. Vitamin D 25-hydroxy is less than 13. Fecal occult blood is negative. Legionella serologies are negative. The patient's CT angio was done which shows right-sided multilobar pneumonia with thyroid enlargement and multinodular goiter. Cardiac catheterization shows left ventricle ejection fraction of 60% with mid right coronary artery 50% stenosis. EKG shows left ventricular hypertrophy and left axis deviation, normal sinus rhythm. IMPRESSION: 1. Acute exacerbation of unspecified congestive heart failure. 2. Right-sided multilobar community-acquired pneumonia with hyperprocalcitoninemia. 3. Unspecified congestive heart failure with elevated brain natriuretic peptide with bilateral venous stasis of the lower extremity. 4. Insulin-requiring uncontrolled diabetes mellitus with hyperglycemia and elevated hemoglobin A1c of possible multinodular goiter. 5. Hypertensive cardiovascular disease with left ventricle ejection fraction of 60%. 6. 50% mid right coronary artery stenosis. 7. Left axis deviation. 8. Hyperprocalcitoninemia. 9. Hypovitaminosis D. 10. Morbid obesity with elevated body mass index. 11. Status post cardiac catheterization. 12. Gait dysfunction. 13. Deconditioning. 14. Questionable history of hypothyroidism. 15. Multilobar right-sided community-acquired pneumonia. 16. History of hypertension. PLAN: At this time, the patient is to be continued on IV antibiotic with IV Rocephin 2 g IV daily, doxycycline 100 mg p.o. every 12. The patient's diuretics has been changed to Lasix 40 mg IV daily, potassium 20 mEq once or twice a day, the patient is on GI prophylaxis, Protonix 40 mg daily. The patient is on Xopenex nebulizer treatment. The patient is on p.r.n. Zofran 4 mg IV every 4 p.r.n. The patient's basal and bolus insulin has been adjusted to 70/30 25 units in the morning and 15 units at the evening. The patient is to be maintained on sliding scale coverage, Humalog. The patient will be maintained on DARRYN stockings, SCDs, out of bed ordered. The patient's case is referred to Transitional Care Unit for discharge planning. Out of bed to chair has been ordered. Physical therapy, occupational therapy, ambulation therapy ordered. Transitional Care Unit referral ordered. The patient's condition, diagnosis, test results extensively explained to the patient and the patient's daughter who is present at the bedside and all questions concerned answered. The patient and the patient's daughter were advised to contact the [employer] for discharge planning option including possibility of getting transferred to Transitional Care Unit if suggested by the Physical Therapy and if approved by the patient's insurance. All of the above was discussed and explained to the patient and the patient's daughter in layman's language. All questions concerned answered. Dictated and electronically signed, not read. Lucio Cruz MD
[2018-03-03] MEDS: Levalbuterol 1.25 MG/3 ML Inhal Soln UD IH SCH (02:51)
[2018-03-03] MEDS: Pantoprazole 40 mg EC Tab PO SCH (05:35)
[2018-03-03 07:29] LABS: ALBUMIN 3.4 g/dL (3.0-4.8); ALT/SGPT 22 U/L (7-56); AST/SGOT 32 U/L (14-36); BILIRUBIN,DIRECT 0.3 mg/dL (0.0-0.4); BLOOD UREA NITROGEN 20 mg/dL (7-21); CALCIUM 8.6 mg/dL (8.4-10.5); GFR NON-AFRICAN AMERICAN > 60
[2018-03-03] MEDS: Levalbuterol 0.63 MG/3 ML Inhal Soln UD IH SCH ×3 (07:50→20:20)
[2018-03-03] MEDS: Insulin Lispro (humaLOG) MEDIUM Coverage SC SCH ×3 (08:38→17:48)
[2018-03-03] MEDS: cefTRIAXone 2 GM IN NS 2 GM/100 ML BAG IVPB SCH (09:07)
[2018-03-03] MEDS: Enoxaparin 40 mg Syringe SC SCH (09:07)
[2018-03-03] MEDS: Insulin Lispro (humaLOG) MIX 75/25(10 ml) SC SCH ×2 (09:09→18:00)
[2018-03-03] MEDS: Lidocaine 5% Patch TD SCH (09:10)
[2018-03-03] MEDS: Potassium Chloride 20 mEq ER Tab PO SCH ×2 (09:12→18:00)
--- NOTE | 2018-03-03 09:18 | PN ---
DATE: 02/28/2018 SUBJECTIVE: The patient is seen in room 271, bed 2. The patient is being prepared and being taken for the cardiac catheterization by Dr. Levi Traylor. The patient was seen and examined in room 271, bed 1, and then the patient was seen in the holding area of the cardiac catheterization lab before the cardiac catheterization. Overnight events were noted. The patient's troponin peaked up to 0.71.. The patient is seen lying in the bed. The patient is comfortable. The patient states that her shortness of breath has lessened and chest heaviness has lessened. PHYSICAL EXAMINATION: VITAL SIGNS: T-max is 97.8. Telemetry shows normal sinus rhythm. Heart rate 83, 76, 78, 67; respirations 18 to 20; O2 sat is 95%, 96%, 94%, 97%. Blood pressure is 150/78, 154/84. HEENT: Head: Normocephalic, atraumatic. Pinkish pale conjunctivae. Anicteric sclerae. No oropharyngeal lesion. NECK: No neck rigidity. CHEST: Kyphosis. LUNGS: Show positive rhonchi bilaterally. Positive crackles bilaterally, right more than the left. Questionable decreased breath sounds at bases. CARDIOVASCULAR: S1 and S2, regular rhythm. Questionable soft systolic murmur in the left sternal border, right second intercostal space. ABDOMEN: Soft, obese, protuberant. Positive bowel sound. GENITALIA: Female. RECTAL: Deferred. EXTREMITIES: Show 1+ to 2+ pitting edema, no calf tenderness, no Homans sign. MUSCULOSKELETAL: Shows a body mass index as per the BMI on the [employer] summary page. DIAGNOSTICS: CBC was reviewed. Hemoglobin and hematocrit are 10.3 and 31. WBC and platelets are within normal limit. CMP, LFTs were reviewed. Hemoglobin A1c 7.7. Fructosamine greater than 320. Potassium was slightly low at 3.4. Glucose is elevated in 200s and 300s. Troponin peaked up to 0.71. Vitamin D 25-hydroxy less than 12.8. CPKs elevated in mid 200s. CT of the chest, abdomen, and pelvis was reviewed, which shows possible right middle lobe and right lower lobe pneumonia and congestive heart failure changes. CT abdomen shows cholelithiasis. The patient's EKG was reviewed. IMPRESSION: 1. Questionable and possible acute non-ST elevation myocardial infarction with elevated troponin. 2. Questionable unstable angina with symptoms of dyspnea on exertion, shortness of breath, and chest heaviness. 3. Acute unspecified congestive heart failure with elevated BNP. 4. Hypertension. 5. Morbid obesity. 6. Left axis deviation. 7. Normocytic iron-deficiency anemia. 8. Uncontrolled insulin-requiring diabetes mellitus with hyperglycemia and hemoglobin A1c of 7.7 and fructosamine of greater than 320. 9. Hyperlipidemia. 10. Hypovitaminosis D. 11. Bilateral lower extremity venous stasis. 12. Possible community-acquired right-sided multilobar pneumonia with congestive heart failure. 13. Cholelithiasis. PLAN: At this time, the patient has received Plavix 300 mg dose yesterday. The patient has been on therapeutic Lovenox. At present, the patient is on Lopressor 25 every 12 hours. The patient is to be continued on Lasix 40 IV every 12 hours. The patient has been supplemented with potassium supplementation. The patient is started on standing dose potassium 20 mEq twice a day. The patient is to be continued on Lopressor 25 every 12 hours. The patient is to be continued on Plavix 75 mg daily. The patient is to be continued on Lipitor 40 mg daily. The patient is to be continued on basal and bolus and sliding-scale immediate acting long-acting insulin. The patient is to be continued on GI prophylaxis. The patient will be ordered repeat lab work for the morning. The patient's further management will be dependent upon the patient's clinical condition, hemodynamic status, and as per the patient's response to therapeutic intervention, as per the patient's diagnostic test results, and as per recommendation by all the physicians involved in the care of the patient. In addition, the patient's consultations are Cardiology and Infectious Disease. Further evaluation of pneumonia, the patient is on broad-spectrum IV antibiotics, Rocephin 2 g IV daily and doxycycline 100 mg IV every 12 hours. The patient's blood cultures reports are pending. I have discussed all the patient's condition's detail, diagnosis, diagnostic test results, and recommendation by Cardiology with the patient's son and the daughter, who are present in the room. All questions concerned answered to their satisfaction. Dictated and electronically signed, not read. Lucio Nancy, MD [facility] # [id number]
--- NOTE | 2018-03-03 12:43 | PN ---
DATE: 03/03/2018 SUBJECTIVE: The patient is without issues. PHYSICAL EXAMINATION: VITAL SIGNS: Blood pressure 146/67, heart rates in the 80s. NECK: Negative JVD. LUNGS: Without rales. HEART: S1, S2. EXTREMITIES: Without edema. LABORATORY DATA: Preliminary echo shows good LV function. Hemoglobin is 10.5. Chemistries unremarkable. Glucose is 208. IMPRESSION: 1. Dyspnea is resolved. 2. Chest pain is resolved. 3. No significant coronary artery disease. 4. Normal left ventricular function. 5. Diabetes mellitus. Given these findings, we will discontinue telemetry today. Levi Traylor MD
--- NOTE | 2018-03-03 14:49 | US ---
Date of service: 03/03/2018 HISTORY: GOITER TECHNIQUE: Sonographic evaluation of the thyroid gland. COMPARISON: Not available FINDINGS: RIGHT LOBE: Measures 3.7 x 1.4 x 1.5 cm. Heterogeneous echotexture Nodules: Solitary hypoechoic solid nodule in the mid right lobe, 4 x 5 x 7 mm. Not suspicious. LEFT LOBE: Measures 7.2 x 3.9 x 5.4 cm. Heterogeneous echotexture Nodules: Multiple nodules Heterogeneous echogenic nodule mid to upper lobe, 2.6 x 4.4 x 4.7 cm. This nodule is vascular. Heterogeneous echogenic nodule mid left lobe, 2.5 x 3.5 by 3.8 cm this nodule is vascular. Heterogeneous echogenic nodule adjacent to isthmus in lower pole, 2.2 x 2.3 x 2.8 cm. ISTHMUS: Measures 0.4 cm. Normal echotexture and flow. Nodules: None OTHER FINDINGS: None . IMPRESSION: Multinodular thyroid. Enlarged left lobe. Three large echogenic nodules. Consideration should be given to percutaneous biopsy given the size of these nodules. 7 mm hypoechoic nodule in mid right lobe common not suspicious.
--- NOTE | 2018-03-03 15:56 | PN ---
DATE: 03/03/2018 SUBJECTIVE: The patient is in room 271, bed 2. The patient is seen and examined in room 271, bed 2. Overnight nurse's notes were reviewed. According to the patient's nurses yesterday, the patient's family brought outside food, which caused the patient's blood sugar to be greater than 400 and the patient required extra insulin. The patient and the family was advised to not to bring outside food for the patient. REVIEW OF SYSTEMS: Fourteen system review was negative for chest pain, negative shortness of breath, negative for headache, negative for visual problem, negative for nausea, negative vomiting, negative for diarrhea, negative for PND, negative for orthopnea. Negative for nausea, vomiting, diarrhea or bleeding. PHYSICAL EXAMINATION: VITAL SIGNS: T-max 98.3. Telemetry shows normal sinus rhythm, heart rate 78 to 85 to 88 beats per minute, respiration 18, O2 sat 96%. Blood pressure 135/59, 132/71. Fingerstick blood sugar 436, 331, 222, 208, 211. HEENT: Head examination normocephalic, atraumatic. HEENT examination shows pinkish conjunctivae. Anicteric sclerae. No oropharyngeal lesion. No neck rigidity. CHEST: Kyphosis. LUNGS: Shows positive rhonchi, creps bilaterally, right more than the left. Questionable decreased breath sound at the bases, left more than the right. CARDIOVASCULAR: S1, S2. Regular rhythm. Questionable soft systolic murmur, left sternal border, right second intercostal space, left second intercostal space. ABDOMEN: Protuberant, obese. Positive bowel sound. Unable to appreciate any palpable organomegaly or hepatosplenomegaly. GENITALIA: Female. RECTAL: Deferred. EXTREMITY: Shows positive trace swelling to 1+ pitting edema of the lower extremity. MUSCULOSKELETAL: Shows an elevated body mass index. NEUROLOGICAL: The patient is alert, awake, responsive, is able to move upper and lower extremity without assistance. Gait examination could not be tested. PSYCHIATRIC: Examination is negative for anxiety, depression. Negative for auditory or visual hallucination. Negative for suicidal or homicidal ideation. DIAGNOSTICS: On 03/03/2018, sodium 138, potassium 4, chloride 104, CO2 of 29, BUN 20, creatinine 0.7, glucose 208, calcium 8.6, phosphorus 3.3, magnesium 1.7. LFTs are within normal limit. The patient's MAR from 03/03/2018 reviewed. IMPRESSION AND PLAN: 1. Acute exacerbation of unspecified systolic versus diastolic congestive heart failure with elevated BNP. 2. Right upper lobe, right middle lobe, right lower lobe multilobar community-acquired pneumonia with hyperprocalcitoninemia. 3. Left lower lobe atelectasis. 4. Morbid obesity with elevated body mass index. 5. Poor dietary compliance with hyperglycemia. 6. Uncontrolled insulin-requiring diabetes mellitus with hyperglycemia and elevated hemoglobin A1c of 7.7. 7. 50% stenosis of the right coronary artery. 8. Questionable [id number] myocardial infarction with elevated troponin. 9. Hypertension. 10. Normocytic iron-deficiency anemia. 11. Left axis deviation. 12. Hypertensive cardiovascular disease. 13. Multinodular goiter. 14. 50% stenosis of the mid right coronary artery disease. 15. Hypertensive cardiovascular disease. 16. Bilateral lower extremity venous stasis. 17. Hypovitaminosis D. Plan at this time, the patient is to be continued on IV antibiotics, Rocephin 2 g IV daily, doxycycline 100 mg p.o. twice a day, Lasix 40 mg IV daily, K-Dur 20 mEq twice a day. The patient is on both GI, DVT prophylaxes with Protonix and Lovenox. The patient has been ordered DARRYN stockings, SCDs, physical therapy, occupational therapy, ambulation therapy, gait training. The patient's insulin has been adjusted. The patient's basal insulin 75/25 has been increased to 30 units in the morning and 15 units in the evening. The patient is on Humalog medium dose sliding scale coverage. The patient is on nebulizer treatment with Xopenex nebulizer 0.63 mg four times a day. The patient has been ordered chest PT, incentive spirometry, oxygen 2 L nasal cannula continuous. Out of bed to chair ordered. The patient's medications will be continued as per the MAR. The patient will be considered for transfer to Transitional Care Unit if accepted today. The patient was evaluated by Physical Therapy. Physical Therapy recommended TCU for the patient. At this time, the patient will be continued on the above therapeutic interventions. If the patient is accepted to Transitional Care Unit, we will consider discharge to Transitional Care Unit as soon as possible when the bed is available. If the patient is not accepted to Transitional Care Unit, the patient will be considered for discharge home very shortly with changing over to p.o. antibiotics as per Infectious Disease recommendation. Dictated and electronically signed, not read. Lucio Cruz MD
--- NOTE | 2018-03-03 21:37 | PN ---
DATE: 03/03/2018 SUBJECTIVE: The patient is in bed, in no acute distress, nontoxic. PHYSICAL EXAMINATION: VITAL SIGNS: Temperature is 98, blood pressure is 120/60, respiratory rate of 18, heart rate of 100. HEENT: Unremarkable. NECK: Supple. LUNGS: Decreased breath sounds. HEART: Normal S1, S2. ABDOMEN: Soft. LABORATORY EXAMINATION: Reveals a white count of 5.9, hemoglobin of 10. BUN of 20, creatinine of 0.7. Urinalysis is noted. Serology is reviewed. Microbiology reveals the blood cultures are negative and nares screen is negative. ASSESSMENT AND PLAN: An 82-year-old female who was seen earlier today with hypertension, diabetes, dyslipidemia, obesity, body mass index of 38, admitted with shortness of breath, nonproductive cough, right-sided community-acquired pneumonia, elevated procalcitonin. On doxycycline and ceftriaxone. CT angio is negative. CAT scan of the chest with right-sided infiltrate. On p.o. doxycycline 5-7 days with a urine Legionella antigen negative and repeat procalcitonin is down to 0.53, may just complete with p.o. doxycycline 5 days. Andres Naylor MD
[2018-03-03] MEDS ORDERED: Latanoprost 2.5 ml Opht Soln OU SCH (22:00)
[2018-03-04] MEDS: Levalbuterol 0.63 MG/3 ML Inhal Soln UD IH SCH ×3 (01:25→14:05)
[2018-03-04] MEDS: Pantoprazole 40 mg EC Tab PO SCH (05:49)
[2018-03-04 06:08] VITALS: O2SAT 95
[2018-03-04 07:26] LABS: ALBUMIN 3.1 g/dL (3.0-4.8); ALT/SGPT 31 U/L (7-56); AST/SGOT 25 U/L (14-36); BILIRUBIN,DIRECT 0.3 mg/dL (0.0-0.4); BLOOD UREA NITROGEN 20 mg/dL (7-21); CALCIUM 8.9 mg/dL (8.4-10.5); GFR NON-AFRICAN AMERICAN > 60
[2018-03-04] MEDS: Insulin Lispro (humaLOG) MEDIUM Coverage SC SCH ×3 (08:23→17:26)
[2018-03-04] MEDS: Insulin Lispro (humaLOG) MIX 75/25(10 ml) SC SCH ×2 (08:24→17:27)
[2018-03-04] MEDS: cefTRIAXone 2 GM IN NS 2 GM/100 ML BAG IVPB SCH (09:25)
[2018-03-04] MEDS: Enoxaparin 40 mg Syringe SC SCH (09:26)
[2018-03-04] MEDS: Potassium Chloride 20 mEq ER Tab PO SCH ×2 (09:27→17:29)
[2018-03-04] MEDS: Lidocaine 5% Patch TD SCH (09:28)
[2018-03-04 11:44] VITALS: BP 134/73; PULSE 85; RESP 19; TEMP 97.1
--- NOTE | 2018-03-04 23:39 | PN ---
DATE: 03/04/2018 SUBJECTIVE: The patient is in bed, in no acute distress. PHYSICAL EXAMINATION VITAL SIGNS: On exam, temperature is 97, blood pressure is 130/70, respiratory rate of 18. HEENT: Examination of HEENT is unremarkable. NECK: Supple. LUNGS: Have decreased breath sounds. HEART: Normal S1 and S2. ABDOMEN: Soft. LABORATORY DATA: Laboratory examination reveals the white count is 5.9, hemoglobin of 10. Chemistries are noted. Serology is noted. Microbiology is reviewed. ASSESSMENT AND PLAN: A 82-year-old female, seen earlier today with hypertension, diabetes, dyslipidemia, body mass index of 38 with obesity and admitted with shortness of breath, cough, right-sided community-acquired pneumonia, elevated procalcitonin, on doxycycline and ceftriaxone. CAT scan was noted. On p.o. doxycycline. Her urine Legionella antigen is negative. Complete with p.o. doxycycline. The patient was seen earlier today. Andres Naylor MD
--- NOTE | 2018-03-05 09:16 | DS ---
HISTORY OF PRESENT ILLNESS: The patient is seen in room 271, bed 2. Overnight nurse's notes were reviewed. No adverse events were noted. No chest pain, no shortness of breath. No nausea, vomiting, diarrhea, or constipation. No headache. No GI or complaints are noted. Fourteen system review was done, pertinent positives and negatives dictated above. PHYSICAL EXAMINATION: VITAL SIGNS: T-max 98. Telemetry shows normal sinus rhythm, heart rate ranging from 76-85 beats per minute, respirations 18, O2 sat 95%, blood pressure 138/68. HEENT: Head examination normocephalic and atraumatic. HEENT examination shows pinkish pale conjunctivae. Anicteric sclerae. No oropharyngeal lesion. NECK: No neck rigidity. CHEST: Kyphosis. LUNGS: Examination shows decreased breath sounds at the bases, left more than the right. Positive rhonchi, right more than the left noted. Decreased crackles and creps noted. CARDIOVASCULAR: Shows S1, S2, regular rhythm. Questionable soft systolic murmur, left sternal border, right second intercostal space, left second intercostal space. ABDOMEN: Soft, obese. Positive bowel sounds. No palpable hepatosplenomegaly noted. GENITALIA: Female. Rectal examination is deferred. EXTREMITIES: Lower extremity shows positive 1+ to trace pitting edema of the lower extremity. The patient refuses to wear DARRYN stockings and SCDs. MUSCULOSKELETAL: Examination shows an elevated body mass index of 39. NEUROLOGICAL: The patient is alert, awake, oriented, is able to move upper and lower extremities without assistance. Gait examination is not tested. DIAGNOSTICS: On 03/04/2018, sodium 138, potassium 4.2, chloride 103, CO2 of 29, BUN 20, creatinine 0.7, glucose 174, calcium 8.9, phosphorus 3.4, magnesium 1.7. LFTs are within normal limits. IMPRESSION: 1. Acute unspecified systolic versus diastolic congestive heart failure with elevated BNP and bilateral lower extremity venous stasis. 2. Right-sided multilobar community-acquired pneumonia with hyperprocalcitoninemia. 3. Normocytic iron-deficiency anemia. 4. Insulin-requiring diabetes mellitus with hyperglycemia and elevated hemoglobin A1c of 7.7. 5. Severe dietary noncompliance. 6. Hypovitaminosis D. 7. Hypokalemia. 8. Degenerative joint disease. 9. Diabetic neuropathy. 10. History of glaucoma and cataract. 11. Community-acquired pneumonia. 12. Hyperlipidemia. 13. Morbid obesity with elevated body mass index of 39. 14. Questionable deconditioning. 15. Bilateral thyroid nodules with multinodular thyroid gland and enlarged left thyroid lobe. 16. Three large echogenic thyroid nodules. 17. Right mid lobe thyroid hypoechoic nodule. PLAN: 1. At this time, the patient is to be discharged to Transitional Care Unit if accepted. If the patient is not accepted to TCU, the patient will be discharged home with referral to [facility] home PT. 2. The patient's discharge medications will be as follows: Norvasc 10 mg daily, omeprazole 20 mg daily, Singulair 10 mg daily Toprol-XL to be resumed at 100 mg daily, Neurontin to be resumed at 100 mg 3 times a day or 300 mg once a day, Colace 100 mg twice a day, Plavix 75 mg daily, Lipitor 20 mg daily, Ecotrin 81 mg daily, K-Dur 20 mEq p.o. daily. The patient is to be started on Amitiza 24 mcg twice a day. The patient is to be started on Lidoderm 5% patch to the affected area of pain daily, Lasix 40 mg twice a day, Drisdol 50,000 units weekly and doxycycline 100 mg p.o. twice a day for 5-7 more days. DISCHARGE FOLLOWUP: With Dr. Cruz within one week. Prior to discharge, the patient has been requested to be evaluated by Dr. Levi Avila for elective thyroid nodule biopsy. During this hospitalization, the patient and the patient's family was regularly updated about the patient's condition, diagnosis, treatment plan, followup plan and need for further diagnostic therapeutic intervention as an outpatient. The patient and the patient's family was advised that the patient needs to have close outpatient followup. In addition, the patient will also resume her insulin at home. The patient is to continue on the following discharge medications. The patient is to resume on Humalog 70/30 with 30 units with breakfast and 15 units with supper. In addition, the patient will be discharged on Colace 100 mg 3 times a day, doxycycline 100 mg twice a day, Drisdol 50,000 units weekly, Ecotrin 81 mg daily, K-Dur 20 mEq daily, Lasix 40 mg twice a day, Lidoderm 5% patch to the affected area, Lipitor 20 or 40 mg daily. The patient is to resume Toprol-XL. The patient is to be discharged on omeprazole 20 or 40 mg daily, Singulair 10 mg daily. The patient is to resume her Xalatan eyedrops. Time spent in the discharge process more than 45 minutes. Dictated and electronically signed, not read. Lucio Cruz MD
--- NOTE | 2018-03-05 12:26 | CARD ---
APPROVED REPORT Date of service: 02/28/2018 EXAM: Two-dimensional and M-mode echocardiogram with Doppler and color Doppler. INDICATION Congestive Heart Failure 2D DIMENSIONS Left Atrium (2D)3.9 (1.6-4.0cm)IVSd1.5 (0.7-1.1cm) LVDd4.0 (3.9-5.9cm)PWd1.5 (0.7-1.1cm) LVDs2.6 (2.5-4.0cm)FS (%) 33.8 % LVEF (%)63.3 (>50%) M-Mode DIMENSIONS Aortic Root2.60 (2.2-3.7cm)Aortic Cusp Exc.1.60 (1.5-2.0cm) Aortic Valve AoV Peak Coauewpx612.0cm/Forrest Peak GR.14mmHg Mitral Valve MV E Jvdjbjqd62.9cm/sMV A Hsrhurqe362.0cm/sE/A ratio0.8 TDI E/Lateral E'0.0E/Medial E'0.0 Tricuspid Valve TR Peak [id number]/sRAP [id number] Peak Gr.21mmHg [id number] LEFT VENTRICLE There is mild concentric left ventricular hypertrophy. The left ventricular function is normal. The left ventricular ejection fraction is within the normal range. RIGHT VENTRICLE The right ventricle apex is not well visualized. ATRIA The left atrium is mildly dilated. The right atrium size is normal. AORTIC VALVE The aortic valve is thickened but opens well. MITRAL VALVE The mitral valve is thickened but opens well. TRICUSPID VALVE The tricuspid valve leaflets are thickened , but open well. There is mild tricuspid regurgitation. There is no pulmonary hypertension. PULMONIC VALVE The pulmonic valve is not well visualized. PERICARDIAL EFFUSION There is no pericardial effusion. <Conclusion> Limited study due to body habitus LVH with good LV function Dilated LA No pulmonary hypertension
== END 2018-03-04 19:22 | DRG 280 ==
LOC: ED 11:54 → ERH 14:21 → 2RSO 22:21
PROVIDERS: ADMIT Internal Medicine; ATTEND Internal Medicine
PROC: 4A023N7 Measurement of Cardiac Sampling and Pressure, Left Heart, Percutaneous Approach (ICD-10-PCS; principal; 2018-02-28)
PROC: B2151ZZ Fluoroscopy of Left Heart using Low Osmolar Contrast (ICD-10-PCS; 2018-02-28)
PROC: B2111ZZ Fluoroscopy of Multiple Coronary Arteries using Low Osmolar Contrast (ICD-10-PCS; 2018-02-28)
DX: I21.4 Non-ST elevation (NSTEMI) myocardial infarction (principal); I50.41 Acute combined systolic (congestive) and diastolic (congestive) heart failure; J18.9 Pneumonia, unspecified organism; J98.11 Atelectasis; I25.10 Atherosclerotic heart disease of native coronary artery without angina pectoris; I11.0 Hypertensive heart disease with heart failure; E55.9 Vitamin D deficiency, unspecified; E11.65 Type 2 diabetes mellitus with hyperglycemia; E87.6 Hypokalemia; E78.00 Pure hypercholesterolemia, unspecified; E11.319 Type 2 diabetes mellitus with unspecified diabetic retinopathy without macular edema; H40.9 Unspecified glaucoma; E66.01 Morbid (severe) obesity due to excess calories; I87.8 Other specified disorders of veins; E11.40 Type 2 diabetes mellitus with diabetic neuropathy, unspecified; D50.9 Iron deficiency anemia, unspecified; E04.2 Nontoxic multinodular goiter; K80.20 Calculus of gallbladder without cholecystitis without obstruction; E78.5 Hyperlipidemia, unspecified; M19.90 Unspecified osteoarthritis, unspecified site; M48.061 Spinal stenosis, lumbar region without neurogenic claudication; M47.816 Spondylosis without myelopathy or radiculopathy, lumbar region; H54.61 Unqualified visual loss, right eye, normal vision left eye; Z79.82 Long term (current) use of aspirin; Z79.4 Long term (current) use of insulin; Z68.39 Body mass index [BMI] 39.0-39.9, adult; Z91.11 Patient's noncompliance with dietary regimen

== ENCOUNTER 2018-03-04 19:25 | Inpatient (IN) | payer MEDICARE ==
[2018-03-04 19:53] VITALS: BMI 39.0
[2018-03-04] MEDS ORDERED: Levalbuterol 0.63 MG/3 ML Inhal Soln UD IH PRN (20:12)
[2018-03-04] MEDS ORDERED: TraMADol/Apap 37.5/325 mg Tab PO PRN (20:12)
[2018-03-04] MEDS: Latanoprost 2.5 ml Opht Soln OU SCH (21:38)
[2018-03-04] MEDS: Insulin Lispro (humaLOG) MEDIUM Coverage SC SCH (21:42)
[2018-03-05] MEDS ORDERED: Pneumococcal 23-Valent Vaccine IM ONE (01:21)
[2018-03-05] MEDS ORDERED: Influenza Vaccine 60 mcg/0.5 mL SYR (4YR UP) IM ONE (01:21)
[2018-03-05] MEDS: Pantoprazole 40 mg EC Tab PO SCH (06:13)
[2018-03-05] MEDS: Enoxaparin 40 mg Syringe SC SCH (06:13)
[2018-03-05] MEDS: Insulin Lispro (humaLOG) MIX 75/25(10 ml) SC SCH ×2 (06:57→17:32)
[2018-03-05] MEDS: Insulin Lispro (humaLOG) MEDIUM Coverage SC SCH ×4 (06:57→21:15)
[2018-03-05] MEDS: Potassium Chloride 20 mEq ER Tab PO SCH ×2 (08:01→17:34)
[2018-03-05 08:19] LABS: ALB/GLOB RATIO 0.9 (1.1-1.8); ALBUMIN 3.4 g/dL (3.0-4.8); ALT/SGPT 21 U/L (7-56); AST/SGOT 34 U/L (14-36); BILIRUBIN,DIRECT 0.2 mg/dL (0.0-0.4); BLOOD UREA NITROGEN 19 mg/dL (7-21); CALCIUM 9.1 mg/dL (8.4-10.5); GFR NON-AFRICAN AMERICAN > 60
[2018-03-05] MEDS: Lidocaine 5% Patch TD SCH (09:54)
--- NOTE | 2018-03-05 12:55 | CP.PCM.CON ---
History of Present Illness - History of Present Illness History of Present Illness: Podiatry Consult Note for Dr. Ballard: 82 yo female patient, with PMHx of DM and HTN, seen and evaluated for podiatric care. Patient is resting bedside comfortably and in NAD. Patient states that she is in no pain to b/l lower extremities. She notes that she occasionally has lower extremity swelling, however has been wearing compressions socks which tend to help. She denies any other pedal complaints at this time. Patient denies N/V/ F. 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 - RENAL Hx Chronic Kidney Disease: No - ENDOCRINE/METABOLIC Hx Diabetes Mellitus Type 2: Yes - HEMATOLOGICAL/ONCOLOGICAL Hx Blood Disorders: No - INTEGUMENTARY Hx Dermatological Problems: Yes Other/Comment: discolored feet and legs - MUSCULOSKELETAL/RHEUMATOLOGICAL Hx Arthritis: Yes - GASTROINTESTINAL Hx Gastrointestinal Disorders: Yes - GENITOURINARY/GYNECOLOGICAL Hx Genitourinary Disorders: No Hx Reproductive Disorders: No - PSYCHIATRIC Hx Substance Use: No - SURGICAL HISTORY Hx Surgeries: Yes Hx Orthopedic Surgery: Yes Other/Comment: b/l cataract sx - ANESTHESIA Hx Anesthesia: No Hx Anesthesia Reactions: No Hx Malignant Hyperthermia: No Meds Allergies/Adverse Reactions: Allergies Allergy/AdvReac Type Severity Reaction Status Date / Time No Known Allergies Allergy Verified 09/17/15 17:31 - Medications Medications: Current Medications Acetaminophen (Tylenol 325mg Tab) 650 mg PO Q6H PRN; Protocol PRN Reason: temp>=99.5 Acetaminophen (Tylenol 650 Mg Supp) 650 mg RC Q6H PRN; Protocol PRN Reason: t>=99.5 Acetaminophen (Tylenol 325mg Tab) 650 mg PO Q6 PRN PRN Reason: TEMP>=99.5F Acetaminophen (Tylenol 650 Mg Supp) 650 mg RC Q6H PRN PRN Reason: TEMP>=99.5F Aspirin (Ecotrin) 81 mg PO 0800 WAGNER; Protocol Last Admin: 03/05/18 08:00 Dose: 81 mg Atorvastatin Calcium (Lipitor) 40 mg PO DIN WAGNER; Protocol Baclofen (Lioresal) 10 mg PO Q8 WAGNER; Protocol Last Admin: 03/05/18 06:12 Dose: Not Given Diphenhydramine HCl (Benadryl) 25 mg PO Q6 PRN; Protocol PRN Reason: Allergy symptoms Docusate Sodium (Colace) 100 mg PO TID WAGNER; Protocol Last Admin: 03/05/18 09:53 Dose: 100 mg Doxycycline Hyclate (Doryx) 100 mg PO Q12 WAGNER; Protocol Last Admin: 03/05/18 09:53 Dose: 100 mg Enoxaparin Sodium (Lovenox) 40 mg SC 0600 WAGNER; Protocol Last Admin: 03/05/18 06:13 Dose: 40 mg Ergocalciferol (Drisdol 50,000 Intl Units Cap) 1 cap PO Q7D WAGNER; Protocol Furosemide (Lasix) 40 mg IVP DAILY WAGNER; Protocol Last Admin: 03/05/18 09:59 Dose: 40 mg Gabapentin (Neurontin) 100 mg PO HS WAGNER; Protocol Last Admin: 03/04/18 21:38 Dose: 100 mg Insulin Human Lispro (Humalog Med) 0 units SC ACHS WAGNER; Protocol Last Admin: 03/05/18 12:03 Dose: 1 units Insulin Lispro Protam/Lispro Human (Humalog Mix 75/25) 30 units SC ACB WAGNER; Protocol Last Admin: 03/05/18 06:57 Dose: Not Given Insulin Lispro Protam/Lispro Human (Humalog Mix 75/25) 15 units SC ACD WAGNER; Protocol Latanoprost (Xalatan Opht) 0 ml OU HS WAGNER; Protocol Last Admin: 03/04/18 21:38 Dose: 1 ml Levalbuterol HCl (Xopenex) 0.63 mg IH [id number] PRN; Protocol PRN Reason: Shortness of Breath Lidocaine (Lidoderm) 1 ea TD DAILY WAGNER; Protocol Last Admin: 03/05/18 09:54 Dose: 1 ea Metoprolol Tartrate (Lopressor) 25 mg PO 1000,2200 WAGNER; Protocol Last Admin: 03/05/18 09:55 Dose: Not Given Montelukast Sodium (Singulair) 10 mg PO HS WAGNER; Protocol Last Admin: 03/04/18 21:38 Dose: 10 mg Ondansetron HCl (Zofran Inj) 4 mg IVP Q4H PRN; Protocol PRN Reason: Nausea/Vomiting Pantoprazole Sodium (Protonix Ec Tab) 40 mg PO 0600 WAGNER; Protocol Last Admin: 03/05/18 06:13 Dose: 40 mg Potassium Chloride (K-Dur 20 Meq Er Tab) 20 meq PO 0800,1700 WAGNER; Protocol Last Admin: 03/05/18 08:01 Dose: 20 meq Tramadol/Acetaminophen (Ultracet 37.5/325 Mg) 1 tab PO Q8H PRN; Protocol PRN Reason: MODERATE PAIN Physical Exam - Constitutional Appears: Well, Non-toxic, No Acute Distress - Head Exam Head Exam: ATRAUMATIC, NORMOCEPHALIC - Extremities Exam Additional comments: Vascular: DP/PT pulses faintly palpable, CFT <3 seconds to all digits, TG warm to warm, +2 pitting edema to bilateral lower extremities Ortho: No tenderness to palpation of b/l lower extremities, no gross deformities appreciated Neuro: Gross sensation intact, protective sensation diminished Derm: No open lesions, no erythema, no clinical signs of infection. Dystrophic, discolored nails, however nails are appropriate length. No corns or calluses noted to b/l lower extremities. No interdigital maceration appreciated - Neurological Exam Neurological exam: Alert, Oriented x3 - Psychiatric Exam Psychiatric exam: Normal Affect, Normal Mood Results - Vital Signs Recent Vital Signs: Last Vital Signs Temp 98.3 F 03/05/18 01:01 Pulse 81 03/05/18 08:02 Resp 18 03/05/18 01:01 BP 147/70 03/05/18 09:59 Pulse Ox - Labs Result Diagrams: 03/05/18 08:00 Labs: Laboratory Results - last 24 hr 03/05/18 03/05/18 03/05/18 04:49 08:00 11:20 Sodium 138 Potassium 4.7 Chloride 102 Carbon Dioxide 33 Anion Gap 7 L BUN 19 Creatinine 0.7 Est GFR ( Amer) > 60 Est GFR (Non-Af Amer) > 60 POC Glucose (mg/dL) 146 H 228 H Random Glucose 171 H Calcium 9.1 Phosphorus 3.6 Magnesium 1.8 Total Bilirubin 0.8 Direct Bilirubin 0.2 AST 34 ALT 21 Alkaline Phosphatase 117 Total Protein 7.1 Albumin 3.4 Globulin 3.7 Albumin/Globulin Ratio 0.9 L Assessment & Plan - Assessment and Plan (Free Text) Assessment: 82 yo female patient, with PMHx of DM and HTN, seen and evaluated for podiatric care. Plan: Patient seen and evaluated at bedside VSS Patient advised to continue wearing compression stockings and to elevate b/l lower extremities as often as possible to help reduce her LE edema Ammonium lactate lotion ordered; to be applied to b/l lower extremities Podiatry to sign off at this time Thank you for the consult - Date & Time Date: 03/05/18 Time: 12:53
[2018-03-05] MEDS: Latanoprost 2.5 ml Opht Soln OU SCH (21:14)
[2018-03-05] MEDS: Levalbuterol 0.63 MG/3 ML Inhal Soln UD IH SCH (21:25)
[2018-03-06] MEDS: Levalbuterol 0.63 MG/3 ML Inhal Soln UD IH SCH ×4 (02:48→19:13)
--- NOTE | 2018-03-06 02:51 | HP ---
DATE OF EXAM: 03/05/2018 HISTORY OF PRESENT ILLNESS: The patient is now admitted to Transitional Care Unit bed 321. The patient is seen in room 321. The patient is out of bed to recliner, sitting up in the bed. The patient's overnight nurses' notes were reviewed. The patient was admitted last night on 03/04/2018 without any adverse events documented. PHYSICAL EXAMINATION: VITAL SIGNS: T-max 98.3; heart rate 81, 79, 86; blood pressure 117/65, 147/70, 147/70, 138/74, 138/83, 132/82; respiration 18 to 20; O2 sat 96% to 97%. GENERAL: The patient is seen sitting up in the chair. The patient is alert, awake, oriented x3. HEAD: Normocephalic, atraumatic. HEENT: Shows pinkish pale conjunctivae. Anicteric sclerae. No oropharyngeal lesion. No neck rigidity. CHEST: Kyphosis. LUNGS: Shows positive rhonchi, right more than the left. CARDIOVASCULAR: Shows S1, S2. Regular rhythm. ABDOMEN: Soft, obese, protuberant. Positive bowel sounds. GENITALIA: Female. RECTAL: Deferred. EXTREMITIES: Shows positive DARRYN stockings. MUSCULOSKELETAL: Shows an elevated body mass index of 40. NEUROLOGIC: The patient is alert, awake, responsive. She is able to move upper and lower extremities without assistance. Gait examination is not tested. Body mass index is elevated. DIAGNOSTICS: Sodium 138, potassium 4.7, chloride 102, CO2 of 33, anion gap 7, BUN 19, creatinine 0.7, GFR greater than 60, glucose 171, calcium 9.1, phosphorus 3.6, magnesium 1.8. LFTs are normal. Fingerstick blood sugar is 146, 228, 279. Echocardiogram is finally available for review which was read today which shows ejection fraction of 63%, concentric left ventricular hypertrophy, normal LV function, tricuspid valve leaflet with mild tricuspid regurgitation, LVH, and mildly dilated left atrium. The patient was seen by the Podiatry services. The patient was ordered ammonium lactate lotion. No further recommendations were ordered by Podiatry. IMPRESSION AND PLAN: 1. Deconditioning. 2. Gait dysfunction. 3. Morbid obesity. 4. Acute diastolic congestive heart failure with left ventricular hypertrophy and hypertensive cardiovascular disease. 5. Mildly dilated left atrium. 6. Thickened aortic valve and thickened mitral valve. 7. Thickened mitral valve leaflet with mild tricuspid regurgitation. 8. Uncontrolled insulin-requiring diabetes mellitus with hyperglycemia and elevated hemoglobin A1c. 9. Acute diastolic congestive heart failure with elevated BNP and bilateral lower extremity venous stasis. 10. Right-sided multilobar community-acquired pneumonia with hypercalcitoninemia. 11. Normocytic iron-deficiency anemia. 12. Severe dietary noncompliance. 13. Hypovitaminosis D. 14. Hypokalemia. 15. Degenerative joint disease. 16. Diabetic neuropathy. 17. History of glaucoma and cataract. 18. Hyperlipidemia. 19. Morbid obesity with elevated body mass index of almost 40. 20. Bilateral thyroid nodule with multinodular thyroid gland and enlarged left thyroid lobe with three large echogenic thyroid nodules and right mid lobe thyroid hypoechoic nodule. 21. Deconditioning. 22. Hypertension. 23. Morbid obesity. 24. Constipation. 25. Hypovitaminosis D. 26. Hypokalemia. 27. Degenerative joint disease. 28. Hyperlipidemia. 29. Diabetic neuropathy. Plan at this time, the patient has been requested to be seen by Podiatry and Interventional Radiology for evaluation of thyroid nodule. CURRENT MEDICATIONS: 1. Benadryl 25 mg p.o. q.6 p.r.n. 2. Colace 100 mg three times a day. 3. Doxycycline 100 mg p.o. q.12. 4. Drisdol 50,000 units weekly. 5. Ecotrin 81 mg daily. 6. Humalog medium dose sliding scale coverage. 7. Insulin 75/25, 30 units with breakfast and 15 units with dinner. 8. K-Dur 20 mEq twice a day. 9. Lac-Hydrin lotion to both feet and legs daily. 10. Lasix 40 mg IV daily. 11. Lidoderm 5% patch to the affected area daily. 12. Baclofen 10 mg p.o. q.8 h. 13. Lipitor 40 mg daily. 14. Lopressor 25 mg twice a day. 15. Lovenox 40 mg subcu daily. 16. Neurontin 100 mg at bedtime. 17. Protonix 40 mg daily. 18. Singulair 10 mg at bedtime. 19. Tylenol 650 mg p.o. suppository q.6 p.r.n. 20. Ultracet 1 tablet q. q.8 h. p.r.n. for pain. 21. Xalatan eye drop 0.005%. 22. Xopenex nebulizer 0.63 mg nebulizer every 6 hours scheduled. 23. The patient is also ordered Zofran 4 mg IV q.4 h. p.r.n. Chest PT, incentive spirometry, oxygen 2 L. Heart healthy diet, DARRYN stockings, SCDs, out of bed to chair. Physical therapy, occupational therapy, daily weights has been ordered. The patient at present will be continued on the Transitional Care Unit till approved number of days. The patient will continue on daily physical therapy, occupational therapy, ambulation therapy, gait training, etc. Lucio Cruz MD
[2018-03-06] MEDS: Enoxaparin 40 mg Syringe SC SCH (05:34)
[2018-03-06] MEDS: Pantoprazole 40 mg EC Tab PO SCH (05:34)
[2018-03-06] MEDS: Insulin Lispro (humaLOG) MEDIUM Coverage SC SCH ×4 (06:56→22:02)
[2018-03-06] MEDS: Insulin Lispro (humaLOG) MIX 75/25(10 ml) SC SCH ×2 (06:57→17:45)
[2018-03-06] MEDS: Potassium Chloride 20 mEq ER Tab PO SCH ×2 (08:38→17:47)
[2018-03-06] MEDS: Ammonium Lactate 12% Cream (140 g) TOP SCH (09:38)
[2018-03-06] MEDS: Lidocaine 5% Patch TD SCH (09:39)
--- NOTE | 2018-03-06 12:27 | PN ---
DATE: 03/06/2018 SUBJECTIVE: The patient is seen in room 321, bed 1. The patient's overnight nurse's notes were reviewed. The patient had an uneventful night according to the nurses' note. The patient does not offer any specific complaint. The patient has been participating in physical therapy according to the nurses' notes and the Physical Therapy notes. The patient is participating in physical therapy. PHYSICAL EXAMINATION: VITAL SIGNS: T-max 97.9, pulse 84, blood pressure 136/86. Fingerstick blood sugar 197, 215, 279, 228. HEENT: Head examination normocephalic, atraumatic. HEENT examination shows pinkish pale conjunctivae. Anicteric sclerae. No oropharyngeal lesion. No neck rigidity. CHEST: Kyphosis. LUNGS: Shows positive rhonchi, right more than the left. CARDIOVASCULAR: S1, S2. Regular rhythm. No audible murmur, gallop or rub at this time. ABDOMEN: Soft, obese. Positive bowel sound. GENITALIA: Female. RECTAL: Deferred. EXTREMITY: Shows positive swelling of the lower extremity. Much improved pitting edema and almost resolved pitting edema of the lower extremity. MUSCULOSKELETAL: Shows a body mass index of 40. Body weight of 247, height of 5 feet 6 inches. DIAGNOSTICS: None from 03/06/2018. Diagnostics from 03/05/2018 reviewed. The patient was seen by the Podiatry Service. Their recommendations were noted. IMPRESSION AND PLAN: 1. Deconditioning. 2. Gait dysfunction. 3. Morbid obesity with elevated body mass index of 40. 4. Acute diastolic congestive heart failure with elevated BNP and bilateral lower extremity venous stasis. 5. Community-acquired right-sided multilobar pneumonia with hyperprocalcitoninemia. 6. Hypertension. 7. Hypovitaminosis D. 8. Uncontrolled insulin-requiring diabetes mellitus with hyperglycemia and elevated hemoglobin A1c of 7.7 with severe dietary noncompliance. 9. Hypokalemia. 10. Degenerative joint disease. 11. Hyperlipidemia. Plan at this time, the patient is to be continued on Transitional Care Unit with daily physical therapy, occupational therapy, ambulation therapy, gait training. The patient will be continued on the medications as per the MAR, which is Benadryl 25 mg every 6 hours p.r.n., Colace 100 mg three times a day, doxycycline 100 mg p.o. twice a day, Drisdol 50,000 units weekly, Ecotrin 81 mg daily, Humalog medium-dose sliding scale coverage before meals and at bedtime, Humalog Mix 75/25 at 30 units with breakfast and 15 units with dinner, K-Dur 20 mEq twice a day, Lac-Hydrin lotion to the affected area daily, Lasix 40 mg IV push daily, Lidoderm 5% patch to the affected area of pain, the patient is on baclofen 10 mg every 8 hours, the patient is on Lipitor 40 mg daily, Lopressor 25 mg twice a day, Lovenox 40 mg subcu daily, Neurontin 100 mg at bedtime, Singulair 10 mg daily, Tylenol p.o. suppository p.r.n., Ultracet 1 tablet every 8 hours p.r.n., the patient is on Xalatan eye drops, Xopenex nebulizer 0.63 mg every 6 hours, Zofran 4 mg IV every 4 hours p.r.n. In addition, the patient is on chest PT, incentive spirometer. Out of bed to chair. The patient will be continued on the above therapeutic intervention while the patient is on the Transitional Care Unit till approved number of days. Dictated and electronically signed, not read. Lucio Cruz MD
--- NOTE | 2018-03-06 20:06 | PN ---
DATE: 03/06/[address] Levi Traylor. SUBJECTIVE: The patient underwent physical therapy yesterday and today. She denies any chest pain. Shortness of breath has improved. PHYSICAL EXAMINATION: VITAL SIGNS: Blood pressure 140/92, heart rate 94, temperature 97.9, respirations 18. HEENT: Normocephalic. CHEST: Diminished breath sounds at the bases. HEART: S1 and S2, regular. ABDOMEN: Soft. EXTREMITIES: 1+ pitting edema. EKG done on 03/03/2018, revealed sinus rhythm with moderate voltage criteria for LVH. Cardiac catheterization performed on the revealed 50% stenosis of small nondominant right coronary artery. No other critical lesions were noted. Ejection fraction was 60%. Thyroid ultrasound, multinodular goiter large echogenic nodules. Consideration should be given to percutaneous biopsy. Chest CT angio, no evidence of pulmonary embolus. Multifocal right-sided pulmonary infiltrate involving three lobes. Venous Doppler of the lower extremity, no sonographic evidence of DVT in the visualized segments. Chest, abdomen, and pelvis CT, patchy right-sided perihilar infiltrate most consistent with CHF cannot be excluded. Enlarged left lobe of the thyroid. Echocardiography study revealed LVH with good LV function and dilated left atrium, no pulmonary hypertension. ASSESSMENT: 1. Chest pain on presentation with borderline troponin. 2. Uncontrolled diabetes mellitus. 3. Pneumonia. 4. Multinodular goiter. 5. Diabetic nephropathy. 6. Systemic uncontrolled hypertension. RECOMMENDATIONS: Continue current aspirin 81 mg once a day, K-Dur 20 mEq daily, Lasix 40 mg intravenously daily, Lovenox 40 mg subcutaneously once a day, Lopressor 25 mg twice a day, Singulair 10 mg every bedtime, Zofran 4 mg intravenously every 4 hours p.r.n. Bran Soares MD
[2018-03-06] MEDS: Latanoprost 2.5 ml Opht Soln OU SCH (22:04)
[2018-03-07] MEDS: Levalbuterol 0.63 MG/3 ML Inhal Soln UD IH SCH ×4 (01:20→19:46)
[2018-03-07] MEDS: Pantoprazole 40 mg EC Tab PO SCH (05:24)
[2018-03-07] MEDS: Enoxaparin 40 mg Syringe SC SCH (05:24)
[2018-03-07] MEDS: Insulin Lispro (humaLOG) MIX 75/25(10 ml) SC SCH ×2 (07:03→17:21)
[2018-03-07] MEDS: Insulin Lispro (humaLOG) MEDIUM Coverage SC SCH ×4 (07:04→21:31)
[2018-03-07] MEDS: Potassium Chloride 20 mEq ER Tab PO SCH ×2 (08:25→17:23)
[2018-03-07] MEDS: Ammonium Lactate 12% Cream (140 g) TOP SCH (09:46)
[2018-03-07] MEDS: Lidocaine 5% Patch TD SCH (09:47)
[2018-03-07 11:21] LABS: BASO # 0.03 K/mm3 (0.0-2.0); BASO % 0.5 % (0.0-3.0); EOS # 0.2 (0.0-0.7); EOS % 2.7 % (1.5-5.0); GRAN # 3.84 (1.4-6.5); GRAN % 61.1 % (50.0-68.0); HEMOGLOBIN 11.8 g/dL (12.0-16.0); LYMPH # 1.8 (1.2-3.4); LYMPH % 28.1 % (22.0-35.0); MEAN CELL VOLUME 89.8 fl (80.0-105.0); MEAN CORPUSCULAR HGB CONC 31.2 g/dl (31.0-37.0); MEAN PLATELET VOLUME 11.7 fl (7.0-11.0); MONO # 0.5 (0.1-0.6); MONO % 7.6 % (1.0-6.0); RBC 4.21 10^6/uL (3.5-6.1); RED CELL DISTRIBUTION WIDTH 14.5 % (11.5-14.5); WHITE BLOOD COUNT 6.3 10^3/ul (4.5-11.0)
[2018-03-07 11:29] LABS: ALBUMIN 3.9 g/dL (3.0-4.8); ALT/SGPT 28 U/L (7-56); AST/SGOT 33 U/L (14-36); BILIRUBIN,DIRECT 0.3 mg/dL (0.0-0.4); BLOOD UREA NITROGEN 20 mg/dL (7-21); CALCIUM 9.8 mg/dL (8.4-10.5); GFR NON-AFRICAN AMERICAN > 60
--- NOTE | 2018-03-07 11:45 | PN ---
DATE: 03/07/2018 SUBJECTIVE: The patient is seen lying in the bed in room 321, bed 1. Patient is alert, awake, responsive. The patient is complaining of some knee pain. Overnight nurse's notes were reviewed. No adverse events were documented as per the nurses' notes. PHYSICAL EXAMINATION: VITAL SIGNS: T-max afebrile, heart rate 80, blood pressure 138/70, respirations 20, O2 sat 95% on room air. HEAD: Normocephalic, atraumatic. HEENT examination shows pinkish pale conjunctivae. Anicteric sclerae. No oropharyngeal lesion. No neck rigidity. CHEST: Kyphosis. LUNGS: Shows occasional rhonchi, right more than the left. CARDIOVASCULAR: Shows S1, S2, regular rhythm. At present, no audible murmur, gallop or rub. ABDOMEN: Soft, protuberant. Positive bowel sound. GENITALIA: Female. RECTAL: Deferred. EXTREMITIES: Shows complete resolution of the pitting edema. MUSCULOSKELETAL: Shows a body mass index of 40. VASCULAR: Palpable pulses. DIAGNOSTICS: None from today. IMPRESSION AND PLAN: 1. Deconditioning. 2. Gait dysfunction. 3. Degenerative joint disease of the spine, hips and knees. 4. Morbid obesity with body mass index of 40. 5. Acute diastolic right-sided congestive heart failure with elevated BNP and bilateral lower extremity venous stasis and elevated BNP. 6. Community-acquired right-sided multilobar pneumonia with hyperprocalcitoninemia. 7. Hypertension. 8. Hypovitaminosis D. 9. Severe dietary noncompliance. 10. Uncontrolled insulin-requiring diabetes mellitus with hyperglycemia and elevated hemoglobin A1c of 7.7. 11. Hypokalemia. 12. Hyperlipidemia. 13. Constipation. 14. Diabetic neuropathy. PLAN: At this time, the patient's lab work which is ordered is pending, which include CBC, CMP, LFT, magnesium. Current consultation with Dr. Levi Avila for evaluation of thyroid nodule biopsy. Current medications, Benadryl 25 mg p.o. every 6 hours p.r.n., Colace 100 mg three times a day, Drisdol 50,000 units weekly, Ecotrin 81 mg daily, Humalog medium-dose sliding scale coverage, insulin lispro mix-Humalog Mix 75/25, 30 units with breakfast, 15 units with dinner, K-Dur 20 mEq twice a day, Lac-Hydrin lotion daily, Lasix 40 mg IV daily, Lidoderm 5% patch daily, baclofen 10 mg p.o. every 8 hours, Lipitor 40 mg daily, Lopressor 25 mg twice a day, Lovenox 40 mg subcu daily, Neurontin 100 mg at bedtime, Protonix 40 mg daily, Singulair 10 mg daily, Tylenol 650 mg p.o. suppository every 6 hours p.r.n., Ultracet 1 tablet p.o. every 8 hours p.r.n., Xalatan eye drops, Xopenex nebulizer 0.63 mg every 6 hours, Zofran 4 mg IV every 4 hours p.r.n. Chest PT, incentive spirometry, oxygen, heart-healthy diet, out of bed, occupational therapy, physical therapy all ordered.. The patient will continue on TCU with daily physical therapy, ambulation therapy, occupational therapy, gait training. The patient has been counseled again about strict diet compliance, increased activity, weight loss at length. All questions concerned answered. Dictated and electronically signed, not read. Lucio Cruz MD
--- NOTE | 2018-03-07 12:11 | PN ---
DATE: 03/07/2018 FOLLOWUP SUBJECTIVE: The patient did exercise today. She denies any chest pain or shortness of breath. PHYSICAL EXAMINATION: VITAL SIGNS: Blood pressure 138/70, heart rate 80, temperature 98, respirations 18. HEENT: Normocephalic. CHEST: Clear. HEART: S1 and S2 regular. EXTREMITIES: Trace leg edema. LABORATORY DATA: Today's SMA-7 is within normal limit except for glucose of 129. ASSESSMENT: 1. Chest pain with borderline troponin upon presentation. 2. Diabetes mellitus. 3. Multinodular goiter. 4. Systemic hypertension. RECOMMENDATIONS: Continue aspirin 81 mg once a day, K-Dur 20 mEq p.o. twice a day, Lasix 40 mg intravenously once a day, Lipitor at 40 mg once a day, Lopressor 25 mg twice a day, Lovenox 40 mg subcutaneously once a day. Bran Soares MD
[2018-03-07] MEDS ORDERED: Ergocalciferol 50,000 Intl Units Cap PO SCH (20:00)
[2018-03-08] MEDS: Levalbuterol 0.63 MG/3 ML Inhal Soln UD IH SCH ×4 (02:02→20:55)
[2018-03-08] MEDS: Enoxaparin 40 mg Syringe SC SCH (05:56)
[2018-03-08] MEDS: Pantoprazole 40 mg EC Tab PO SCH (05:57)
[2018-03-08] MEDS: Insulin Lispro (humaLOG) MIX 75/25(10 ml) SC SCH ×2 (06:48→17:28)
[2018-03-08] MEDS: Insulin Lispro (humaLOG) MEDIUM Coverage SC SCH ×4 (06:48→21:31)
[2018-03-08] MEDS: Potassium Chloride 20 mEq ER Tab PO SCH ×2 (08:47→17:29)
[2018-03-08] MEDS: Lidocaine 5% Patch TD SCH (09:05)
[2018-03-08] MEDS: Ammonium Lactate 12% Cream (140 g) TOP SCH (09:06)
[2018-03-08] MEDS: Latanoprost 2.5 ml Opht Soln OU SCH (21:29)
--- NOTE | 2018-03-08 22:06 | PN ---
DATE: 03/08/2018 SUBJECTIVE: The patient underwent rehab today. She denies any chest pain or shortness of breath. PHYSICAL EXAMINATION: VITAL SIGNS: Blood pressure 130/62, heart rate 78, temperature 98, respirations 18. HEENT: Normocephalic. CHEST: Clear. HEART: S1 and S2 regular. ABDOMEN: Soft EXTREMITIES: 1+ pitting edema. LABORATORY DATA: Today's blood sugar is 188 and 123 respectively. ASSESSMENT: 1. Chest pain with borderline troponin upon presentation. 2. Uncontrolled diabetes mellitus. 3. Multinodular goiter. The patient is clinically euthyroid. 5. Hypertension. 6. Obesity. RECOMMENDATIONS: Continue current aspirin 81 mg once a day, K-Dur 20 mEq orally twice a day, Lasix 40 mg p.o. once a day. Lipitor 40 mg once a day, Lovenox 40 mg subcutaneously once a day, Lopressor 25 mg twice a day. Bran Soares MD
[2018-03-09] MEDS: Levalbuterol 0.63 MG/3 ML Inhal Soln UD IH SCH ×4 (01:30→20:00)
[2018-03-09] MEDS: Enoxaparin 40 mg Syringe SC SCH (05:24)
[2018-03-09] MEDS: Pantoprazole 40 mg EC Tab PO SCH (05:24)
[2018-03-09] MEDS: Insulin Lispro (humaLOG) MEDIUM Coverage SC SCH ×4 (06:50→22:11)
[2018-03-09] MEDS: Insulin Lispro (humaLOG) MIX 75/25(10 ml) SC SCH ×2 (06:51→17:27)
[2018-03-09] MEDS: Potassium Chloride 20 mEq ER Tab PO SCH ×2 (08:32→17:29)
[2018-03-09] MEDS: Lidocaine 5% Patch TD SCH (09:58)
[2018-03-09] MEDS: Ammonium Lactate 12% Cream (140 g) TOP SCH (10:00)
--- NOTE | 2018-03-09 17:39 | PN ---
DATE: 03/09/2018 SUBJECTIVE: The patient exercised today. No reported chest pain or shortness of breath. PHYSICAL EXAMINATION: VITAL SIGNS: Blood pressure 140/61, heart rate 95, temperature 97.1, respiration 18. HEENT: Normocephalic. CHEST: Clear. HEART: S1 and S2, regular. ABDOMEN: Soft. EXTREMITIES: No edema. ASSESSMENT: 1. Chest pain with borderline troponin on presentation. 2. Uncontrolled diabetes mellitus. 3. Hypertension. 4. Obesity. 5. Osteoarthritis. 6. Extreme noncompliance. CONDITIONS: Continue aspirin 81 mg once a day, K-Dur 20 mEq p.o. twice a day, Lasix 40 mg once a day, Lopressor 25 mg twice a day, subcutaneous Lovenox 40 mg daily, Ultram at 1 tablet every 8 hours p.r.n., Xopenex inhaler every 6 hours p.r.n., Zofran 4 mg intravenously every 4 hours p.r.n. Bran Soares MD
[2018-03-09] MEDS: Latanoprost 2.5 ml Opht Soln OU SCH (22:11)
--- NOTE | 2018-03-09 23:58 | PN ---
DATE: 03/09/2018 SUBJECTIVE: The patient is in room 321, bed 1. Overnight nurse's notes were reviewed. The patient was found to be alert, awake, oriented without any adverse effects or complaint. The patient's morning nurse's notes were reviewed. No adverse events documented. PHYSICAL EXAMINATION: VITAL SIGNS: T-max afebrile, heart rate 80-95, blood pressure 140/61, respiration 18, O2 sat last documented is 100% on room air. HEAD: Normocephalic, atraumatic. HEENT examination shows pinkish conjunctivae. Anicteric sclerae. No oropharyngeal lesion. No neck rigidity. CHEST: Kyphosis. LUNGS: Shows questionable decreased breath sound at the bases. No rales, crackles or wheezing. Occasional rhonchi, right side noted. CARDIOVASCULAR: S1, S2, regular rhythm. ABDOMEN: Soft, obese. Positive bowel sound. No palpable hepatosplenomegaly noted. GENITALIA: Female. RECTAL: Deferred. EXTREMITIES: Shows trace swelling of the lower extremity. No pitting edema, no ankle or foot swelling. MUSCULOSKELETAL: Shows a body mass index of 40. NEUROLOGIC: The patient is alert, awake, responsive, is able to move upper and lower extremity without assistance. Gait examination is not tested. VASCULAR: Palpable pulses. DIAGNOSTIC DATA: From 03/07/2018 reviewed. Fingerstick blood sugar 143, 123, 188, 221,154. IMRESSION AND PLAN: 1. Deconditioning. 2. Gait dysfunction. 3. Morbid obesity with elevated body mass index of 40. 4. Hypertension. 5. Insulin-requiring diabetes mellitus with hyperglycemia and uncontrolled insulin-requiring diabetes mellitus with hemoglobin A1c of 7.7. 6. Normocytic iron-deficiency anemia. 7. Status post IV Venofer treatment. 8. Hypertension. 9. Acute right-sided diastolic congestive heart failure with elevated BNP and bilateral lower extremity venous stasis and elevated BNP. 10. Community-acquired multilobar right-sided pneumonia with hyper procalcitoninemia. 11. Hypovitaminosis D. 12. Severe dietary noncompliance. 13. Hypokalemia. 14. Constipation. 15. Diabetic neuropathy. 16. 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 17. Hyperlipidemia. 18. Diabetic neuropathy. PLAN: At this time, the patient is to be continued on Transitional Care Unit with daily physical therapy, ambulation therapy, gait training, occupational therapy, etc. The patient will be continued on TCU till approved number of days. Current medications, Benadryl 25 mg p.o. every 6 hours p.r.n. Colace 100 mg three times a day, Drisdol 50,000 units weekly, aspirin 81 mg daily, Humalog medium dose sliding scale coverage before meals and at bedtime, Humalog Mix 75/25 30 units with breakfast, 15 units with dinner, K-Dur 20 mEq twice a day, Lac-Hydrin lotion to both feet and legs, Lasix 40 mg p.o. daily, Lidoderm patch 5% daily, baclofen 10 mg every 6 hours, Lipitor 40 mg daily, Lopressor 25 mg twice a day, Lovenox 40 mg subcu daily, Neurontin 100 mg at bedtime, Protonix 40 mg daily, Singulair 10 mg at bedtime, Tylenol 650 mg p.o. suppository every 6 hours p.r.n. Ultracet 1 tablet every 8 hours p.r.n., Xalatan eye drops, Xopenex nebulizer 0.63 mg every 6 hours, Zofran 4 mg IV every 4 hours p.r.n. The patient will be continued on chest PT, incentive spirometry, oxygen, DARRYN stockings. Head of the bed at 30 degrees, out of bed, physical therapy, occupational therapy. Dictated and electronically signed, not read. Lucio Cruz MD
[2018-03-10] MEDS: Levalbuterol 0.63 MG/3 ML Inhal Soln UD IH SCH ×4 (01:33→21:20)
[2018-03-10] MEDS: Enoxaparin 40 mg Syringe SC SCH (05:57)
[2018-03-10] MEDS: Pantoprazole 40 mg EC Tab PO SCH (05:57)
[2018-03-10] MEDS: Insulin Lispro (humaLOG) MIX 75/25(10 ml) SC SCH ×2 (06:51→17:03)
[2018-03-10] MEDS: Insulin Lispro (humaLOG) MEDIUM Coverage SC SCH ×4 (06:52→21:41)
[2018-03-10] MEDS: Potassium Chloride 20 mEq ER Tab PO SCH ×2 (07:46→17:09)
--- NOTE | 2018-03-10 09:11 | PN ---
DATE: 03/08/2018 SUBJECTIVE: The patient is seen in room 321, bed 2. The patient is seen lying in the bed. According to the patient's nurses, the patient has poor IV access and they were unable to get any new IV access on her. The patient was seen. Overnight nurse's notes were reviewed. The patient was found to be alert, awake, oriented x3. No adverse events documented. PHYSICAL EXAMINATION: VITAL SIGNS: T-max 97.7, heart rate 73, blood pressure 130/65, 119/62, respiration 18, O2 sat 99%. HEAD: Normocephalic, atraumatic. HEENT examination shows pink conjunctivae. Anicteric sclerae. No oropharyngeal lesion. No neck rigidity. CHEST: Kyphosis. LUNGS: Shows occasional rhonchi, right more than the left. No crackles, rales or wheezing noted. CARDIOVASCULAR: S1, S2, regular rhythm. Questionable soft systolic murmur in left sternal border, right second intercostal space, left second intercostal space. ABDOMEN: Obese. No palpable hepatosplenomegaly noted. GENITALIA: Female. RECTAL: Deferred. EXTREMITIES: Shows trace swelling of the lower extremity. No pitting edema noted. MUSCULOSKELETAL: Shows a body mass index of 40. NEUROLOGIC: The patient is alert, awake, responsive, is able to move upper and lower extremity without assistance. Gait examination is not tested. DIAGNOSTICS: WBC 6.3, hemoglobin/hematocrit 11.8/37.8, platelet 239. Sodium 138, potassium 4.1, chloride 99, CO2 of 32, anion gap 11, BUN 20, creatinine 0.8, GFR greater than 60, glucose 129, calcium 9.8, magnesium 2. LFTs are normal. IMPRESSION AND PLAN: 1. Deconditioning. 2. Gait dysfunction. 3. Acute right-sided diastolic congestive heart failure with elevated BNP and bilateral lower extremity venous stasis. 4. Normocytic iron-deficiency anemia. 5. Hypertension. 6. Uncontrolled insulin-requiring diabetes mellitus with hyperglycemia and elevated hemoglobin A1c of 7.7. 7. Multinodular goiter. 8. Bilateral thyroid nodules. 9. Multinodular thyroid with enlarged left thyroid lobe. 10. Thyroid nodules. 11. Constipation. 12. Hypovitaminosis D. 13. Insulin-requiring diabetes mellitus. 14. Hypokalemia. 15. Degenerative joint disease. 16. Hyperlipidemia. 17. Diabetic neuropathy. PLAN: At this time, the patient's IV Lasix is discontinued and the patient is put on Lasix 40 p.o. daily, Benadryl 25 p.o. every 6 hours p.r.n., Colace 100 mg three times a day, Drisdol 50,000 units weekly, Ecotrin 81 mg daily, Humalog medium dose sliding scale coverage before meals and at bedtime, Humalog Mix 75/25, 30 units with breakfast, 15 units with dinner, K-Dur 20 mEq twice a day, Lac-Hydrin lotion to both feet and legs, Lasix changed to 40 mg p.o. daily, Lidoderm 5% patch to the affected area, baclofen 10 mg p.o. every 8 hours, Lipitor 40 mg daily, Lopressor 25 mg twice a day, Lovenox 40 mg subcu daily, Neurontin 100 mg at bedtime, Protonix 40 mg daily, Singulair 10 mg at bedtime, Tylenol 650 mg p.o. suppository every 6 hours p.r.n., Ultracet 1 tablet every 8 hours p.r.n., Xalatan eye drops, Xopenex nebulizer 0.63 mg every 6 hours, Zofran 4 mg IV every 4 hours p.r.n. chest PT, incentive spirometer, oxygen 2 liters. Heart-healthy diet, out of bed with assistance. Head of the bed at 30 degrees. SCDs, DARRYN stockings, physical therapy, occupational therapy ordered. At present, the patient will be continued on the above therapeutic intervention with continuation of the daily physical therapy, occupational therapy, ambulation therapy, gait training. The patient will be continue the stay on TCU till approved number of days for TCU. Dictated and electronically signed, not read. Lucio Cruz MD
[2018-03-10] MEDS: Ammonium Lactate 12% Cream (140 g) TOP SCH (09:37)
[2018-03-10] MEDS: Lidocaine 5% Patch TD SCH (09:38)
--- NOTE | 2018-03-10 10:07 | PN ---
DATE: 03/07/2018 TIME: 08:15 p.m. Ms. Parsons is an 82-year-old female who was noted to have thyroid nodules on a CTA of the pulmonary arteries. An ultrasound subsequently performed, which revealed coalescent large left thyroid nodules and smaller nodules on the right. The left nodules can be biopsied as an outpatient once Ms. Parsons recovers from her acute illness. Levi Avila MD
[2018-03-10] MEDS ORDERED: Lidocaine 5% Patch TD SCH (11:30)
--- NOTE | 2018-03-10 20:24 | PN ---
DATE: 03/10/2018 SUBJECTIVE: The patient is seen ambulating in the room 321, bed 1. The patient is alert, awake, responsive. The patient's family is at bedside. The patient was able to ambulate from the recliner to the bed and in the room with assistance of a cane. PHYSICAL EXAMINATION VITAL SIGNS: T-max is 98; pulse 72-81; blood pressure 130/60, 124/77; respirations 16; O2 sat 98%. HEAD: Normocephalic, atraumatic. HEENT: Shows pink conjunctivae. Anicteric sclerae. No oropharyngeal lesion. No neck rigidity. CHEST: Kyphosis. LUNGS: Shows occasional rhonchi, right more than the left. CARDIOVASCULAR: S1, S2, regular rhythm. Positive systolic murmur left sternal border, right second intercostal space, left second intercostal space. ABDOMEN: Obese, protuberant. Positive bowel sounds. GENITALIA: Female. RECTAL: Deferred. EXTREMITIES: Shows almost complete resolution of the pitting edema of the lower extremity. MUSCULOSKELETAL: Shows elevated body mass index of 38. LABORATORY DATA: Fingerstick blood sugar 151, 167, 172, 145, 155, 181. IMPRESSION: 1. Gait dysfunction. 2. Deconditioning. 3. Acute right-sided diastolic congestive heart failure with elevated BNP and bilateral lower extremity venous stasis. 4. Hypertension. 5. Morbid obesity with elevated body mass index of 38. 6. Normocytic iron-deficiency anemia. 7. Status post intravenous Venofer treatment. 8. Uncontrolled insulin-requiring diabetes mellitus with hyperglycemia and hemoglobin A1c of 7.7. 9. Hypertension. 10. Constipation. 11. Hypovitaminosis D. 12. Hypokalemia. 13. Degenerative joint disease. 14. Hyperlipidemia. 15. Diabetic neuropathy. 16. History of glaucoma and cataract. At present, the patient is to be continued on therapeutic intervention as per the MAR. MEDICATIONS: The patient's current medications will be continued as per the MAR of today, which include Benadryl 25 p.o. every six p.r.n.; Colace 100 mg three times a day; Drisdol 50,000 units weekly; Ecotrin 81 mg daily; Humalog medium dose sliding scale coverage; insulin lispro mix 75/25; Humalog Mix 75/25, 30 units with breakfast and 15 units with dinner; K-Dur 20 mEq twice a day; Lac-Hydrin lotion to both legs and feet; Lasix 40 mg p.o. daily; Lidoderm 5% patch; baclofen 10 mg p.o. every eight, Lipitor 40 mg daily, metoprolol 25 mg every 12, Lovenox 40 mg subcu daily, Neurontin 100 mg h.s., Protonix 40 mg daily, Singulair 10 mg h.s., Tylenol 650 p.o. suppository every six p.r.n., Ultracet 1 tablet every eight p.r.n., Xalatan 0.005% eyedrops, Xopenex nebulizer 0.63 mg every 6 hours, Zofran 4 mg IV every four p.r.n.. PLAN: Chest PT, incentive spirometry, oxygen orders, SCD, DARRYN stockings, physical therapy, occupational therapy ordered. The patient is to be continued on the above therapeutic intervention. The patient will be considered for discharge upon completion of the TCU-approved TCU stay. Dictated and electronically signed, not read. Lucio Cruz MD
[2018-03-10] MEDS: Latanoprost 2.5 ml Opht Soln OU SCH (21:22)
--- NOTE | 2018-03-10 22:41 | PN ---
DATE: 03/10/2018 SUBJECTIVE: The patient denies chest pain. She underwent rehab today without shortness of breath. PHYSICAL EXAMINATION: VITAL SIGNS: Blood pressure 132/60, heart rate 84, temperature 97.5, respirations 18. HEENT: Normocephalic. CHEST: Clear. HEART: S1 and S2, regular. EXTREMITIES: 1+ pitting edema. LABORATORY DATA: Today's blood sugar was 167. ASSESSMENT: 1. Chest pain on admission. 2. Uncontrolled diabetes mellitus. 3. Systemic hypertension. 4. Osteoarthritis. RECOMMENDATIONS: Continue aspirin 81 mg once a day, K-Dur 20 mEq p.o. twice a day, Lasix 40 mg p.o. once a day, Lopressor 25 mg twice a day. Bran Soares MD
[2018-03-11] MEDS: Levalbuterol 0.63 MG/3 ML Inhal Soln UD IH SCH ×3 (02:18→13:07)
[2018-03-11] MEDS: Enoxaparin 40 mg Syringe SC SCH (05:46)
[2018-03-11] MEDS: Pantoprazole 40 mg EC Tab PO SCH (05:46)
[2018-03-11] MEDS: Insulin Lispro (humaLOG) MEDIUM Coverage SC SCH ×2 (06:56→12:09)
[2018-03-11] MEDS: Insulin Lispro (humaLOG) MIX 75/25(10 ml) SC SCH (06:57)
[2018-03-11] MEDS: Potassium Chloride 20 mEq ER Tab PO SCH (08:05)
[2018-03-11] MEDS: Ammonium Lactate 12% Cream (140 g) TOP SCH (09:41)
[2018-03-11 10:51] VITALS: BP 142/80; PULSE 76; RESP 16; TEMP 97.6; O2SAT 99
--- NOTE | 2018-03-11 19:20 | PN ---
DATE: 03/11/2018 SUBJECTIVE: The patient denies any dizziness or chest pain. She underwent physical therapy today and she is preparing to go home today. PHYSICAL EXAMINATION: VITAL SIGNS: Blood pressure 142/80, heart rate 76, temperature 97.6 and respiration 18. HEENT: Normocephalic. CHEST: Clear. HEART: Sounds regular. EXTREMITIES: 1+ pitting edema. LABORATORY DATA: Her blood sugars 197 and 104. ASSESSMENT: 1. Systemic hypertension. 2. Uncontrolled diabetes mellitus. 3. History of chest pain on admission. 4. Osteoarthritis. 5. Morbid obesity. RECOMMENDATIONS: Continue aspirin 81 mg once a day, reduce K-Dur to 20 mEq once a day, continue Lasix 40 mg p.o. once a day, Lopressor 25 mg twice a day, Lovenox 40 mg subcutaneous once a day, Ultram 1 tablet q.8 hours p.r.n. Bran Soares MD
--- NOTE | 2018-03-12 03:36 | DS ---
FINAL PROGRESS NOTE/DISCHARGE SUMMARY The patient is seen in room 321, bed 1. Overnight nurse's notes were reviewed. No adverse events were documented by the nurses. The patient stayed comfortable without any complications. PHYSICAL EXAMINATION: VITAL SIGNS: T-max 97.9, pulse 87, blood pressure 145/74, respiration 18, O2 sat 95%. HEENT: The patient's head examination normocephalic, atraumatic. HEENT examination shows pinkish conjunctivae. Anicteric sclerae. No oropharyngeal lesion. NECK: No neck rigidity. CHEST: Kyphosis. LUNGS: Examination shows no rales, crackles, or wheezing. Occasional rhonchi noted on the right lung field which have significantly improved since the day of admission. CARDIOVASCULAR: S1, S2, regular rhythm. Positive questionable systolic murmur, left sternal border, right second intercostal space, left second intercostal space. ABDOMEN: Soft, obese, protuberant. No palpable hepatosplenomegaly noted. GENITALIA: Female. RECTAL: Examination deferred. EXTREMITY: Shows no pitting edema, no calf tenderness, no Homans' sign. There is swelling of the lower extremity noted. MUSCULOSKELETAL: Examination shows an elevated body mass index. NEUROLOGIC: The patient is alert, awake, responsive, is able to move upper and lower extremity without assistance. Gait examination is not tested. DIAGNOSTICS None from today. FINAL IMPRESSION, PLAN AND DISCHARGE DIAGNOSES: 1. Acute diastolic right-sided congestive heart failure with elevated BNP and bilateral lower extremity venous stasis. 2. Normocytic iron-deficiency anemia. 3. Status post intravenous Venofer treatment. 4. Community-acquired right-sided multilobar pneumonia. 5. Uncontrolled insulin-requiring diabetes mellitus with hyperglycemia and elevated hemoglobin A1c of 7.7. 6. Hypovitaminosis D. 7. Hypertension. 8. 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 9. Gait dysfunction. 10. Morbid obesity. 11. Dietary noncompliance. 12. Constipation. 13. Hypokalemia. 14. Diabetic neuropathy. 15. 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 At this time, the patient will be considered for discharge from TCU after completion of the TCU stay. The patient will be discharged home with referral to [facility] Home Health aide, home physical therapy. DISCHARGE MEDICATIONS: As per updated ambulatory orders and updated and adjusted doses of insulin and all the other medications. The patient will be given all the updated and revised medication prescriptions. Discharge followup with Dr. Cruz within 1 week. Discharge followup with outpatient Ophthalmology and Podiatry evaluation. The patient was counseled about strict dietary compliance, weight loss, and physical activity which has been discussed with the patient and the patient's family including the daughter and the son on multiple occasions during this hospitalization. Time spent in the discharge process 45 minutes. Dictated and electronically signed, not read. Lucio Cruz MD
[2018-03-12] MEDS ORDERED: Potassium Chloride 20 mEq ER Tab PO SCH (10:00)
== END 2018-03-11 15:04 | disposition home or self-care (01) | DRG 91 ==
LOC: TRCU 19:25
PROVIDERS: ADMIT Internal Medicine; ATTEND Internal Medicine
PROC: F07Z9FZ Gait Training/Functional Ambulation Treatment using Assistive, Adaptive, Supportive or Protective Equipment (ICD-10-PCS; principal; 2018-03-05)
PROC: F08Z4FZ Home Management Treatment using Assistive, Adaptive, Supportive or Protective Equipment (ICD-10-PCS; 2018-03-05)
PROC: 3E0F7GC Introduction of Other Therapeutic Substance into Respiratory Tract, Via Natural or Artificial Opening (ICD-10-PCS; 2018-03-05)
DX: R26.89 Other abnormalities of gait and mobility (principal); I50.31 Acute diastolic (congestive) heart failure; J18.9 Pneumonia, unspecified organism; Z68.41 Body mass index [BMI] 40.0-44.9, adult; I11.0 Hypertensive heart disease with heart failure; D50.9 Iron deficiency anemia, unspecified; E11.21 Type 2 diabetes mellitus with diabetic nephropathy; E11.65 Type 2 diabetes mellitus with hyperglycemia; E11.40 Type 2 diabetes mellitus with diabetic neuropathy, unspecified; E66.01 Morbid (severe) obesity due to excess calories; E55.9 Vitamin D deficiency, unspecified; M17.0 Bilateral primary osteoarthritis of knee; E04.2 Nontoxic multinodular goiter; E78.5 Hyperlipidemia, unspecified; E87.6 Hypokalemia; I36.1 Nonrheumatic tricuspid (valve) insufficiency; K59.00 Constipation, unspecified; I87.2 Venous insufficiency (chronic) (peripheral); Z91.19 Patient's noncompliance with other medical treatment and regimen; Z91.11 Patient's noncompliance with dietary regimen; Z79.4 Long term (current) use of insulin

== ENCOUNTER 2018-04-02 10:22 | Day surgery (SDC) | payer MEDICARE ==
[2018-03-27 11:15] VITALS: BMI 37.3
[2018-04-02 11:11] LABS: BASO # 0.02 K/mm3 (0.0-2.0); BASO % 0.5 % (0.0-3.0); EOS # 0.1 (0.0-0.7); GRAN # 2.16 (1.4-6.5); GRAN % 58.5 % (50.0-68.0); HEMOGLOBIN 11.1 g/dL (12.0-16.0); LYMPH # 1.1 (1.2-3.4); LYMPH % 29.3 % (22.0-35.0); MEAN CELL VOLUME 89.8 fl (80.0-105.0); MEAN CORPUSCULAR HEMOGLOBIN 27.8 pg (25.0-35.0); MEAN CORPUSCULAR HGB CONC 30.9 g/dl (31.0-37.0); MEAN PLATELET VOLUME 11.4 fl (7.0-11.0); MONO # 0.3 (0.1-0.6); MONO % 8.7 % (1.0-6.0); RED CELL DISTRIBUTION WIDTH 14.5 % (11.5-14.5); WHITE BLOOD COUNT 3.7 10^3/uL (4.5-11.0)
[2018-04-02 11:24] LABS: INR 1.05; PARTIAL THROMBOPLASTIN TIME 29.3 Seconds (25.1-36.5); PROTHROMBIN TIME 12.1 SECONDS (9.4-12.5)
[2018-04-02 11:28] LABS: BLOOD UREA NITROGEN 22 mg/dL (7-21); CALCIUM 9.3 mg/dL (8.4-10.5); GFR NON-AFRICAN AMERICAN > 60
[2018-04-02] MEDS ORDERED: Lidocaine 1% 5ml Abboject ONE (13:43)
[2018-04-02] MEDS ORDERED: Midazolam 2 MG/2 ML VIAL ONE (14:01)
[2018-04-02] MEDS ORDERED: Midazolam 5 MG/5 ML VIAL IVP ONE ×2 (14:30→15:14)
[2018-04-02] MEDS ORDERED: Sodium Chloride 0.45% 1,000 ML IV SCH (15:00)
--- NOTE | 2018-04-02 15:31 | US ---
PROCEDURE: Ultrasound-guided left thyroid fine needle aspiration biopsy. CLINICAL HISTORY: Goiter. Multiple large left thyroid nodules. Evaluate for malignancy PHYSICIAN(S): Levi Avila M.D. TECHNIQUE: The relative risks and indications for the procedure were explained to the patient and consent obtained. The patient was placed supine on the stretcher with the neck extended and preliminary sonography of the thyroid performed. This reveal confluent large heterogeneous nodules left thyroid.. A solitary small nodule is noted on the right. The neck was prepped and draped in the usual sterile fashion. Conscious sedation and monitoring were provided throughout the procedure by a nurse. 1% Xylocaine was used to anesthetize the skin and soft tissues at the access site. Three passes with a 22-gauge needle were performed under ultrasound guidance for fine needle aspiration of the 4 cm heterogeneous nodule in the left thyroid. The slides were reviewed by pathology and deemed adequate. The patient tolerated the procedure well. IMPRESSION: 1. Ultrasound guided fine needle aspiration of a heterogeneous 4 cm nodule in the left thyroid
[2018-04-02 16:07] VITALS: BP 137/53; PULSE 67; RESP 18; TEMP 98; O2SAT 98
== END 2018-04-02 16:30 | disposition home or self-care (01) ==
LOC: SDS 10:22
PROVIDERS: ATTEND Radiology Vascular & Interventional Radiology
DX: E04.2 Nontoxic multinodular goiter (principal); I10 Essential (primary) hypertension; E11.9 Type 2 diabetes mellitus without complications

== ENCOUNTER 2018-06-26 12:25 | Outpatient (CLI) | payer MEDICARE | END 2018-06-26 12:26 | disposition home or self-care (01) | LOC: RAD 12:25 ==

== ENCOUNTER 2018-10-06 18:51 | Inpatient (IN) | payer MEDICARE ==
--- NOTE | 2018-10-06 19:13 | ED PDOC ---
Arrival/HPI - General Time Seen by Provider: 10/06/18 18:56 - History of Present Illness Narrative History of Present Illness (Text): 10/06/18 19:40 Family brought patient in for AMS. They reports that they last saw patient in her normal state of health at 3pm when they left her on her front porch. When they arrived back patient appeared fatigued and lethargic and had difficulty speaking. Patient arrived in ED and code stroke called. 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 - Renal Hx Renal Disorder: No - Endocrine/Metabolic Hx Diabetes Mellitus Type 2: Yes - Hematological/Oncological Hx Blood Transfusions: No - Integumentary Hx Dermatological Disorder: Yes Other/Comment: discolored feet and legs - Musculoskeletal/Rheumatological Hx Musculoskeletal Disorders: Yes - Gastrointestinal Hx Gastrointestinal Disorders: Yes - Genitourinary/Gynecological Hx Genitourinary Disorders: No Hx Reproductive Disorders: No - Psychiatric Hx Emotional Abuse: No Hx Physical Abuse: No Hx Substance Use: No - Surgical History Hx Orthopedic Surgery: Yes Other/Comment: b/l cataract sx - Anesthesia Hx Anesthesia Reactions: No Hx Malignant Hyperthermia: No - Suicidal Assessment Feels Threatened In Home Enviroment: No Family/Social History Family/Social History: No Known Family HX Smoking Status: Never Smoked Hx Alcohol Use: No Hx Substance Use: No Allergies/Home Meds Allergies/Adverse Reactions: Allergies No Known Allergies Allergy (Verified 09/17/15 17:31) Home Medications: Home Meds Medication Instructions Recorded Confirmed Docusate [Colace] 100 mg PO BID 02/27/18 04/02/18 Omeprazole 20 mg PO DAILY 02/27/18 04/02/18 Furosemide [Lasix] 40 mg PO TID 03/27/18 04/02/18 Insulin Lispro Mix 75/25 [HumaLOG 25 units SC ACBD 03/27/18 04/02/18 Mix 75/25] Latanoprost 0.005% Opht [Xalatan 0.005 % EACHEYE HS 03/27/18 04/02/18 Opht] Potassium Chloride [K-Dur 20 mEq 20 meq PO TID 03/27/18 04/02/18 ER Tab] Review of Systems - Review of Systems Constitutional: Fatigue Respiratory: absent: SOB, Cough, Sputum Cardiovascular: absent: Chest Pain Gastrointestinal: absent: Abdominal Pain, Constipation, Diarrhea, Nausea, Vomiting Genitourinary Female: absent: Dysuria Musculoskeletal: Other (chronic leg pain) Neurological: Gait Changes, Speech Changes. absent: Headache, Dizziness, Focal Weakness, Facial Droop Physical Exam Temperature: Febrile Blood Pressure: Hypertensive Pulse: Regular Respiratory Rate: Normal Appearance: Positive for: Well-Appearing, Non-Toxic, Comfortable Pain Distress: None Mental Status: Positive for: Alert and Oriented X 3 - Systems Exam Head: Present: Atraumatic, Normocephalic Pupils: Present: PERRL Extroacular Muscles: Present: EOMI Conjunctiva: Present: Normal Mouth: Present: Moist Mucous Membranes Neck: Present: Normal Range of Motion Respiratory/Chest: Present: Clear to Auscultation, Good Air Exchange. No: Respiratory Distress Cardiovascular: Present: Regular Rate and Rhythm, Normal S1, S2. No: Murmurs Abdomen: No: Tenderness, Distention Upper Extremity: Present: Normal Inspection, Normal ROM, Other (5/5 strength in b/l upper extremities) Lower Extremity: Present: Normal Inspection, Other (fentanyl patch to R leg. 4/5 strength in lower extremities) Neurological: Present: GCS=15, CN II-XII Intact Psychiatric: Present: Alert, Oriented x 3, Other (slurred speech. ?word finding difficulties) Medical Decision Making ED Course and Treatment: 10/06/18 19:16 CT Head w/o IV Contrast shows: IMPRESSION: No acute intracranial abnormality. Basal ganglia calcification present. Technically limited study due to motion artifact. Clinical correlation advised. 10/06/18 19:41 EKG shows sinus tachycardia at 103bpm with normal intervals and no st changes. FS:92. 10/06/18 19:49 10/06/18 20:28 Patient now has clear speech and back to baseline. Cxray concerning for pna. Covered for community acquired pneumonia. Need to follow-up official read in am. 10/06/18 20:34 CTA head and neck negative. Neurology consult placed. Aspirin ordered due to concern for tia 10/06/18 20:[address] Cruz who accepted patient with resident paged 10/06/18 21:04 Resident aware and in ED evaluating. - RAD Interpretation Radiology Orders: 10/06/18 19:09 HEAD W/O (CODE STROKE) [CT] Stat CHEST PORTABLE [RAD] Stat Group Exercise Instructor: Radiologist - Medication Orders Current Medication Orders: Sodium Chloride (Sodium Chloride 0.9%) 1,000 mls @ 100 mls/hr IV .Q10H WAGNER NIHSS Scale (Halliday) Time Performed: 19:05 - How Severe is the Stoke Baseline Level of Consciousness: 0=Alert LOC to Questions: 1=One correct LOC to commands: 0=Obeys both correctly Best Gaze: 0=Normal Visual: 0=No visual loss Facial: 0=Normal Motor Arm - Left: 0=No drift Motor Arm - Right: 0=No drift Motor Leg - Left: 0=No drift Motor Leg - Right: 0=No drift Limb Ataxia: 0=Absent Sensory: 0=Normal Best Language: 1=Mild to moderate aphasia Dysarthia: 1=Mild to moderate slurring Extinction & Inattention (Neglect): 0=Normal, no object Score: 3 Risk Level: Minor Stroke Risk rTPA Inclusion/Exclusion - Refusal of Treatment Patient Refused Treatment: No - Inclusion Criteria for Altepase All of the below criteria for inclusion were reviewed: Yes Patient is 18 years or Older: No The Clinical Diagnosis of Ischemic Stroke That is Causing a Potentially Disabling Neurological Deficit: Yes Time of Onset is Well Established to be Less Than 270 Minute Before Treatment Would Begin: No Risk/Benefit Discussed With Patient/Family Member Present: No Disposition/Present on Arrival - Present on Arrival Any Indicators Present on Arrival: No History of DVT/PE: No History of Uncontrolled Diabetes: Yes Urinary Catheter: No History Surgical Site Infection Following: None - Disposition Have Diagnosis and Disposition been Completed?: Yes Diagnosis: TIA (transient ischemic attack), Pneumonia, Thyroid goiter Disposition: HOSPITALIZED Disposition Time: 20:35 Patient Plan: Observation Patient Problems: Current Active Problems Problem Status Onset TIA (transient ischemic attack) Acute Pneumonia Acute Thyroid goiter Acute Condition: FAIR Referrals: Lucio Cruz MD [Primary Care Provider] - Follow up with primary
[2018-10-06] MEDS ORDERED: Sodium Chloride 0.9% 1,000 ML IV STA (19:15)
[2018-10-06] MEDS ORDERED: Sodium Chloride 0.9% 1,000 ML IV SCH (19:15)
[2018-10-06 19:37] VITALS: BMI 47.0
[2018-10-06 20:02] LABS: BASO # 0.01 K/mm3 (0.0-2.0); BASO % 0.1 % (0.0-3.0); EOS # 0.1 (0.0-0.7); EOS % 0.9 % (1.5-5.0); HEMOGLOBIN 11.8 g/dL (12.0-16.0); LYMPH # 1.1 (1.2-3.4); LYMPH % 14.8 % (22.0-35.0); MEAN CELL VOLUME 88.5 fl (80.0-105.0); MEAN CORPUSCULAR HEMOGLOBIN 27.8 pg (25.0-35.0); MEAN CORPUSCULAR HGB CONC 31.4 g/dl (31.0-37.0); MEAN PLATELET VOLUME 11.4 fl (7.0-11.0); MONO # 0.4 (0.1-0.6); MONO % 5.9 % (1.0-6.0); RBC 4.25 10^6/uL (3.5-6.1); RED CELL DISTRIBUTION WIDTH 14.2 % (11.5-14.5); WHITE BLOOD COUNT 7.5 10^3/uL (4.5-11.0)
[2018-10-06 20:12] LABS: INR 1.24; PARTIAL THROMBOPLASTIN TIME 35.5 Seconds (26.9-38.3); PROTHROMBIN TIME 13.8 SECONDS (9.4-12.5)
[2018-10-06 20:14] LABS: ALB/GLOB RATIO 1.1 (1.1-1.8); ALT/SGPT 23 U/L (7-56); AST/SGOT 25 U/L (14-36); BLOOD UREA NITROGEN 16 mg/dL (7-21); CALCIUM 8.7 mg/dL (8.4-10.5); GFR NON-AFRICAN AMERICAN 60; HDL CHOLESTEROL 73 mg/dL (29-60)
[2018-10-06 20:25] LABS: B-TYPE NATRIURETIC PEPTIDE 210 pg/mL (0-450); LDL CHOLESTEROL 84 mg/dL (0-129); TROPONIN I < 0.01 ng/mL
[2018-10-06] MEDS ORDERED: cefTRIAXone 1 gm 1 GM/100 ML BAG IVPB STA (20:26)
[2018-10-06] MEDS ORDERED: Morphine 2 mg/ml ISec IVP STA (20:59)
[2018-10-06 21:00] LABS: VENOUS BLOOD GAS BASE EXCESS 2.7 mmol/L (0.0-2.0); VENOUS BLOOD GAS PO2 54 mm/Hg (30-55); VENOUS BLOOD PH 7.37 (7.32-7.43)
[2018-10-06 21:09] LABS: URINE BILIRUBIN NEGATIVE (NEGATIVE); URINE BLOOD MODERATE (NEGATIVE); URINE GLUCOSE (UA) NEGATIVE (NEGATIVE); URINE LEUKOCYTE ESTERASE NEGATIVE Leu/uL (NEGATIVE); URINE PROTEIN NEGATIVE mg/dL (<30 mg/dL)
[2018-10-06 21:24] LABS: URINE APPEARANCE CLEAR (CLEAR); URINE COLOR YELLOW (YELLOW)
[2018-10-06 21:31] LABS: URINE BACTERIA FEW /hpf; URINE EPITHELIAL CELLS 0 - 2 /hpf (0-5); URINE WBC 0 - 2 /hpf (0-6)
--- NOTE | 2018-10-06 21:43 | CP.PCM.HP ---
History of Present Illness - History of Present Illness History of Present Illness: H&P for Anoop Mcqueen PGY3 This is an 83yo female with past medical history of HTN, HLD, DM-1, DJD, diabetic neuropathy, questionable CAD, possible diabetic retinopathy, unspecified HF was brought in to ED by family for slurred speech and confusion. As per daughter who was at bedside, her mom was sitting on the porch in the sun sleeping. When she woke up her speech was slurred and she was confused. The confusion and slurred speech resolved once patient was in ED. She denies any headache, changes in vision, numbness/tingling, weakness, dysphagia, chest pain or shortness of breath, abdominal pain, nausea/vomiting or diarrhea. Patient does complain of R hip pain, which has been chronic as well as chronic cough which she has had for several months. As per PMD, Dr. Cruz, patient has been complaining of this recently as an outpatient and was supposed to get work up for pneumonia. In the ED, code stroke was called. NIHSS was 3. Patient did not receive TPA. Past medical history: DM-1, HTN, HLD, DJD, unspecified HF w/ preserved EF (last echo in 02/2018- EF 63%, RSVP 31mmHg, dilated LA), diabetic neuropathy, questionable CAD, possible diabetic retinopathy, unspecified CAD (cath 02/2018- 50% RCA stenosis), multinodular goiter Past surgical history: Denies Home medications: Not updated on JUL- family reports will bring medications in AM. Pt did have fentanyl patch on during examination-dose could not be determined Allergies: NKDA Social history: Denies EtOH, drug or tobacco use. Lives with daughter - uses cane and rolling walker w/ seat at home Family history: Dad-unknown. Mom- during child when pt was 5yo PMD: Dr. Cruz Pharmacy: [facility] [place] outpatient Present on Admission - Present on Admission Any Indicators Present on Admission: No Review of Systems - Review of Systems All systems: reviewed and no additional remarkable complaints except Review of Systems: 12 point ROS reviewed as per HPI and is otherwise negative Past Patient History - Infectious Disease Hx of Infectious Diseases: None - Past Social History Smoking Status: Never Smoked - CARDIAC Hx Pacemaker: No - PULMONARY Hx Respiratory Disorders: No - NEUROLOGICAL Hx Paralysis: No - HEENT Hx HEENT Problems: Yes Hx Blind: Yes (right eye) Hx Cataracts: Yes (both eyes) Other/Comment: 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 impaired - RENAL Hx Chronic Kidney Disease: No - ENDOCRINE/METABOLIC Hx Diabetes Mellitus Type 2: Yes - HEMATOLOGICAL/ONCOLOGICAL Hx Blood Transfusions: No - INTEGUMENTARY Hx Dermatological Problems: Yes Other/Comment: discolored feet and legs - MUSCULOSKELETAL/RHEUMATOLOGICAL Hx Musculoskeletal Disorders: Yes - GASTROINTESTINAL Hx Gastrointestinal Disorders: Yes - GENITOURINARY/GYNECOLOGICAL Hx Genitourinary Disorders: No Hx Reproductive Disorders: No - PSYCHIATRIC Hx Emotional Abuse: No Hx Physical Abuse: No Hx Substance Use: No - SURGICAL HISTORY Hx Orthopedic Surgery: Yes Other/Comment: b/l cataract sx - ANESTHESIA Hx Anesthesia Reactions: No Hx Malignant Hyperthermia: No Meds Allergies/Adverse Reactions: Allergies Allergy/AdvReac Type Severity Reaction Status Date / Time No Known Allergies Allergy Verified 09/17/15 17:31 Physical Exam - Constitutional Appears: No Acute Distress - Head Exam Head Exam: ATRAUMATIC, NORMAL INSPECTION, NORMOCEPHALIC - Eye Exam Eye Exam: Normal appearance, PERRL Pupil Exam: NORMAL ACCOMODATION, PERRL - ENT Exam ENT Exam: Mucous Membranes Moist - Respiratory Exam Respiratory Exam: Decreased Breath Sounds, NORMAL BREATHING PATTERN. absent: Rales, Rhonchi, Wheezes - Cardiovascular Exam Cardiovascular Exam: REGULAR RHYTHM, +S1, +S2. absent: Gallop, Rubs, Systolic Murmur - GI/Abdominal Exam GI & Abdominal Exam: Normal Bowel Sounds, Soft. absent: Mass, Rebound, Rigid, Tenderness - Extremities Exam Extremities exam: Positive for: pedal edema ( +1 bilaterally ), pedal pulses present. Negative for: calf tenderness, tenderness - Neurological Exam Neurological exam: Alert, CN II-XII Intact, Oriented x3 Additional comments: + 5 strength bilaterally, no pronator drift speech- clear NIHSS -0 - Psychiatric Exam Psychiatric exam: Normal Affect, Normal Mood - Skin Skin Exam: Dry, Intact, Warm Results - Vital Signs Recent Vital Signs: Last Vital Signs Temp 100.5 F H 10/06/18 20:00 Pulse 96 H 10/06/18 21:08 Resp 18 10/06/18 21:08 BP 147/71 10/06/18 21:08 Pulse Ox 95 10/06/18 21:08 - Labs Result Diagrams: 10/06/18 19:45 10/06/18 19:45 Labs: Laboratory Results - last 24 hr 10/06/18 10/06/18 10/06/18 19:45 19:45 19:45 WBC 7.5 D RBC 4.25 Hgb 11.8 L Hct 37.6 MCV 88.5 MCH 27.8 MCHC 31.4 RDW 14.2 Plt Count 174 MPV 11.4 H Neut % (Auto) 78.3 H Lymph % (Auto) 14.8 L [place] % (Auto) 5.9 Eos % (Auto) 0.9 L Baso % (Auto) 0.1 Lymph # (Auto) 1.1 L [place] # (Auto) 0.4 Eos # (Auto) 0.1 Baso # (Auto) 0.01 Absolute Neuts (auto) 5.88 PT 13.8 H INR 1.24 APTT 35.5 pO2 VBG pH VBG pCO2 VBG HCO3 VBG Total CO2 VBG O2 Sat (Calc) VBG Base Excess VBG Potassium Glucose Lactate FiO2 Sodium 139 Potassium 3.8 Chloride 99 Carbon Dioxide 30 Anion Gap 14 BUN 16 Creatinine 0.9 Est GFR ( Amer) > 60 Est GFR (Non-Af Amer) 60 Random Glucose 107 Calcium 8.7 Total Bilirubin 1.2 AST 25 ALT 23 Alkaline Phosphatase 143 H Total Creatine Kinase 183 Troponin I < 0.01 D NT-Pro-B Natriuret Pep 210 Total Protein 7.6 Albumin 4.0 Globulin 3.6 Albumin/Globulin Ratio 1.1 Triglycerides 81 Cholesterol 185 LDL Cholesterol Direct 84 HDL Cholesterol 73 H Venous Blood Potassium Urine Color Urine Appearance Urine pH Ur Specific [place] Urine Protein Urine Glucose (UA) Urine Ketones Urine Blood Urine Nitrate Urine Bilirubin Urine Urobilinogen Ur Leukocyte Esterase BBK History Checked 10/06/18 10/06/18 10/06/18 20:00 20:46 21:02 WBC RBC Hgb Hct MCV MCH MCHC RDW Plt Count MPV Neut % (Auto) Lymph % (Auto) [place] % (Auto) Eos % (Auto) Baso % (Auto) Lymph # (Auto) [place] # (Auto) Eos # (Auto) Baso # (Auto) Absolute Neuts (auto) PT INR APTT pO2 54 VBG pH 7.37 VBG pCO2 50.0 VBG HCO3 28.9 H VBG Total CO2 30.4 H VBG O2 Sat (Calc) 90.3 H VBG Base Excess 2.7 H VBG Potassium 3.6 Glucose 101 Lactate 1.5 FiO2 21.0 Sodium 137.0 Potassium Chloride 101.0 Carbon Dioxide Anion Gap BUN Creatinine Est GFR ( Amer) Est GFR (Non-Af Amer) Random Glucose Calcium Total Bilirubin AST ALT Alkaline Phosphatase Total Creatine Kinase Troponin I NT-Pro-B Natriuret Pep Total Protein Albumin Globulin Albumin/Globulin Ratio Triglycerides Cholesterol LDL Cholesterol Direct HDL Cholesterol Venous Blood Potassium 3.6 Urine Color Yellow Urine Appearance Clear Urine pH 7.0 Ur Specific [place] 1.010 Urine Protein Negative Urine Glucose (UA) Negative Urine Ketones Negative Urine Blood Moderate H Urine Nitrate Negative Urine Bilirubin Negative Urine Urobilinogen 1.0 H Ur Leukocyte Esterase Negative BBK History Checked No verified bt Assessment & Plan - Assessment and Plan (Free Text) Assessment: 1. AMS- improved - r/o CVA - Head CT: no acute pathology - CTA head/neck: no stenosis- multinodular goiter - neuro check - MRI/MRA brain ordered - neuro consulted - passed bedside swallow eval- resume diet - PT eval - Continue ASA, Lipitor, Plavix - will trend trop 2. Community Acquired Pneumonia - Pt has temp of 100.5 with tachycardia - CXR showed possible RLL pneumonia - CT chest ordered - Doxy and Rocephin - Xopenex prn and dre - Robitussin, Tylenol 3. DM - Carb consistent/HHD - NPH 10HS, Lispro 5AC - accucheck ACHS 4. LE Edema - secondary to unspecified HFpEF - Lasix 20q12 w/ BP holding parameters - monitor I&O 5. HTN - Toprol and Lasix with BP holding parameters 6. HLD - Lipitor 7. DJD - Percocet prn pain - Hold fentanyl patch 8. Constipation - Miralax 9. Multinodular goiter - known history - will check thyroid panel - last thyroid US in 02/2018 GI ppx: Protonix DVT ppx: Lovenox Case seen, discussed and reviewed with Dr. Nancy Cotto PGY3
[2018-10-06 22:03] LABS: BARBITURATES, UR NEGATIVE (NEGATIVE); BENZODIAZEPINES, UR NEGATIVE (NEGATIVE); OPIATES, UR NEGATIVE (NEGATIVE); PHENCYCLIDINE, UR NEGATIVE (NEGATIVE)
[2018-10-06] MEDS ORDERED: Dextrose 50% SYRINGE Inj (50 ml) IV PRN (22:05)
[2018-10-06] MEDS ORDERED: Levalbuterol 0.63 MG/3 ML Inhal Soln UD IH PRN (22:08)
[2018-10-06] MEDS ORDERED: Oxycodone/Acetaminophen 5/325 mg Tab PO PRN (22:08)
[2018-10-06] MEDS ORDERED: Enoxaparin 120 mg Syringe SC ONE (22:08)
[2018-10-07 00:17] LABS: FREE T4 1.31 ng/dL (0.78-2.19)
[2018-10-07] MEDS: guaiFENesin 200 mg/10 ml Syrup UD PO PRN ×2 (00:20→05:01)
[2018-10-07] MEDS: Pantoprazole 40 mg EC Tab PO SCH (05:01)
--- NOTE | 2018-10-07 06:34 | CP.PCM.PN ---
Subjective - Date & Time of Evaluation Date of Evaluation: 10/07/18 Time of Evaluation: 06:34 - Subjective Subjective: Donna Delgado DO, PGY-2: Progress Note for Dr. Cruz Patient was seen librado examined at bedside. Patient has no facial droop, slurred speech or aphasia. She is pending MRI of the brain and MRA of the head and neck. She complains of a cough and chest pain associated with the cough. She denies any sputum production with the cough. Otherwise, she endorse no other complaints. Objective - Vital Signs/Intake and Output Vital Signs (last 24 hours): Temp Pulse Resp BP Pulse Ox 97.8 F 100 H 20 129/82 96 10/07/18 05:38 10/07/18 05:38 10/07/18 05:38 10/07/18 05:38 10/07/18 05:43 - Medications Medications: Current Medications Acetaminophen (Tylenol 325mg Tab) 650 mg PO Q6H PRN PRN Reason: Fever >100.4 F Last Admin: 10/07/18 05:01 Dose: 650 mg Aspirin (Aspirin Chewable) 81 mg PO DAILY [facility] Atorvastatin Calcium (Lipitor) 40 mg PO DIN [facility] Clopidogrel Bisulfate (Plavix) 75 mg PO DAILY [facility] Dextrose (Dextrose 50% Inj) 0 ml IV STAT PRN; Protocol PRN Reason: Hypoglycemia Protocol Enoxaparin Sodium (Lovenox) 40 mg SC DAILY [facility]; Protocol Furosemide (Lasix) 20 mg IVP Q12 [facility] Guaifenesin (Robitussin) 200 mg PO Q4H PRN PRN Reason: Cough and congestion Last Admin: 10/07/18 05:01 Dose: 200 mg Dextrose (Dextrose 5% In Water 1000 Ml) 1,000 mls @ 0 mls/hr IV .Q0M PRN; Protocol PRN Reason: Hypoglycemia Protocol Doxycycline Hyclate 100 mg/ (Sodium Chloride) 100 mls @ 100 mls/hr IVPB Q12 [facility]; Protocol Ceftriaxone Sodium (Rocephin 1 Gram Ivpb) 1 gm in 100 mls @ 100 mls/hr IVPB DAILY [facility]; Protocol Insulin Human Lispro (Humalog) 5 units SC AC [facility] Insulin Human Regular (Humulin R High) 0 units SC ACHS [facility]; Protocol Latanoprost (Xalatan Opht) 0 ml OU HS [facility] Levalbuterol HCl (Xopenex) 0.63 mg IH TIDRESP [facility] Levalbuterol HCl (Xopenex) 0.63 mg IH [id number] PRN PRN Reason: Shortness of Breath Last Admin: 10/06/18 23:46 Dose: 0.63 mg Metoprolol Succinate (Toprol Xl) 100 mg PO BRK [facility] Montelukast Sodium (Singulair) 10 mg PO HS [facility] Oxycodone/Acetaminophen (Percocet 5/325 Mg Tab) 1 tab PO Q6H PRN PRN Reason: Pain, severe (8-10) Stop: 10/09/18 22:09 Pantoprazole Sodium (Protonix Ec Tab) 40 mg PO 0600 [facility] Last Admin: 10/07/18 05:01 Dose: 40 mg Polyethylene Glycol (Miralax) 17 gm PO BID [facility] Potassium Chloride (K-Dur 20 Meq Er Tab) 20 meq PO BRK [facility] - Labs Labs: 10/06/18 19:45 10/06/18 19:45 PT 13.8 SECONDS (9.4-12.5) H 10/06/18 19:45 INR 1.24 10/06/18 19:45 APTT 35.5 Seconds (26.9-38.3) 10/06/18 19:45 - Constitutional Appears: Non-toxic, No Acute Distress - Head Exam Head Exam: ATRAUMATIC, NORMOCEPHALIC - Eye Exam Eye Exam: EOMI, Normal appearance - ENT Exam ENT Exam: Mucous Membranes Moist - Neck Exam Neck Exam: Normal Inspection - Respiratory Exam Respiratory Exam: Rhonchi, Wheezes. absent: Accessory Muscle Use - Cardiovascular Exam Cardiovascular Exam: RRR, +S1, +S2 - GI/Abdominal Exam GI & Abdominal Exam: Soft, Normal Bowel Sounds - Extremities Exam Extremities Exam: Normal Inspection. absent: Calf Tenderness Additional comments: 1/4 edema - Back Exam Back Exam: NORMAL INSPECTION. absent: CVA tenderness (L), CVA tenderness (R) - Neurological Exam Neurological Exam: Alert, Awake, Oriented x3 Neuro motor strength exam: Left Upper Extremity: 5, Right Upper Extremity: 5, Left Lower Extremity: 5, Right Lower Extremity: 5 - Psychiatric Exam Psychiatric exam: Normal Affect, Normal Mood - Skin Skin Exam: Dry, Intact, Normal Color, Warm Assessment and Plan - Assessment and Plan (Free Text) Assessment: 1. AMS- improved - r/o CVA - Head CT: no acute pathology - CTA head/neck: no stenosis- multinodular goiter - neuro check q4h - MRI/MRA brain ordered - neurology consulted, Dr. Luis Chance - passed bedside swallow eval- resume diet - PT eval - Continue ASA, Lipitor, Plavix - will trend trop 2) Acute bronchitis - CTA of chest negative for PE and pneumonia - Procalcitonin, ESR and CRP ordered - Continue with antibiotics empirically until all cultures are back 3. DM - Carb consistent/HHD - NPH 10HS, Lispro 5AC - accucheck ACHS 4. LE Edema - secondary to unspecified HFpEF - Lasix 20q12 w/ BP holding parameters - monitor I&O 5. HTN - Toprol and Lasix with BP holding parameters 6. HLD - Lipitor 7. DJD - Percocet prn pain - Hold fentanyl patch 8. Multinodular goiter - known history - will check thyroid panel - last thyroid US in 02/2018 - ENT consulted, Dr. Dorsey GI ppx: Protonix DVT ppx: Lovenox Case seen, discussed and reviewed with Dr. Cruz
[2018-10-07 07:44] LABS: HEMOGLOBIN 10.4 g/dL (12.0-16.0); MEAN CELL VOLUME 87.9 fl (80.0-105.0); MEAN CORPUSCULAR HEMOGLOBIN 27.4 pg (25.0-35.0); MEAN CORPUSCULAR HGB CONC 31.1 g/dl (31.0-37.0); MEAN PLATELET VOLUME 12.2 fl (7.0-11.0); RBC 3.8 10^6/uL (3.5-6.1); RED CELL DISTRIBUTION WIDTH 14.4 % (11.5-14.5); WHITE BLOOD COUNT 6.4 10^3/uL (4.5-11.0)
--- NOTE | 2018-10-07 07:57 | CT ---
Date of service: 10/06/2018 PROCEDURE: CT HEAD WITHOUT CONTRAST. HISTORY: Code Stroke COMPARISON: None available. TECHNIQUE: Axial computed tomography images were obtained through the head/brain without intravenous contrast. Radiation dose: Total exam DLP = 1976.43 mGy-cm. This CT exam was performed using one or more of the following dose reduction techniques: Automated exposure control, adjustment of the mA and/or kV according to patient size, and/or use of iterative reconstruction technique. FINDINGS: HEMORRHAGE: No intracranial hemorrhage. BRAIN: No mass effect or edema. No atrophy or chronic microvascular ischemic changes. VENTRICLES: Unremarkable. No hydrocephalus. CALVARIUM: Unremarkable. PARANASAL SINUSES: Unremarkable as visualized. No significant inflammatory changes. MASTOID AIR CELLS: Unremarkable as visualized. No inflammatory changes. OTHER FINDINGS: Limited by patient motion artifact. IMPRESSION: No acute hemorrhage.
[2018-10-07] MEDS ORDERED: Potassium Chloride 20 mEq ER Tab PO SCH (08:00)
[2018-10-07] MEDS ORDERED: Levalbuterol 0.63 MG/3 ML Inhal Soln UD IH SCH (08:00)
--- NOTE | 2018-10-07 08:00 | RAD ---
Date of service: 10/06/2018 HISTORY: Code Stroke COMPARISON: No prior. TECHNIQUE: 1 view obtained. FINDINGS: LUNGS: Right-sided perihilar infiltrate and peribronchial thickening PLEURA: No significant pleural effusion identified, no pneumothorax apparent. CARDIOVASCULAR: No aortic atherosclerotic calcification present. Normal cardiac size. No pulmonary vascular congestion. OSSEOUS STRUCTURES: No significant abnormalities. VISUALIZED UPPER ABDOMEN: Normal. OTHER FINDINGS: None. IMPRESSION: Right-sided perihilar infiltrate and peribronchial thickening
[2018-10-07 08:05] LABS: TROPONIN I < 0.01 ng/mL
[2018-10-07 08:11] LABS: ALBUMIN 3.6 g/dL (3.0-4.8); ALT/SGPT 28 U/L (7-56); AST/SGOT 26 U/L (14-36); BLOOD UREA NITROGEN 14 mg/dL (7-21); GFR NON-AFRICAN AMERICAN > 60
[2018-10-07] MEDS: Insulin Lispro 1 UNITS/0.01 ML SC SCH ×3 (09:14→17:18)
--- NOTE | 2018-10-07 09:31 | CT ---
Date of service: 10/06/2018 PROCEDURE: CT Chest without contrast HISTORY: r/o pneumonia COMPARISON: 03/01/2018 TECHNIQUE: Contiguous axial images were obtained through the chest without intravenous contrast enhancement. Sagittal and coronal reconstructions were performed. Radiation dose: Total exam DLP = 778.38 mGy-cm. This CT exam was performed using one or more of the following dose reduction techniques: Automated exposure control, adjustment of the mA and/or kV according to patient size, and/or use of iterative reconstruction technique. FINDINGS: LUNGS: Clear lungs. Visualized airway clear MEDIASTINUM: Unremarkable thoracic aorta. No aneurysm. Cardiomegaly. Main pulmonary artery unremarkable. No vascular congestion. Multiple nonspecific mild mediastinal lymph nodes. No aortic atherosclerotic calcification. PLEURA: No pleural fluid. No pneumothorax. BONES: No fracture. No destructive lesion. UPPER ABDOMEN: Grossly unremarkable. OTHER FINDINGS: Redemonstration of a markedly enlarged left lobe of the thyroid gland with substernal extension. Associated displacement of the trachea to the right and mild narrowing. IMPRESSION: Redemonstration of a markedly enlarged left lobe of the thyroid gland with substernal extension. Associated displacement of the trachea to the right and mild narrowing. Mild mediastinal lymphadenopathy.
--- NOTE | 2018-10-07 09:35 | CT ---
Date of service: 10/06/2018 PROCEDURE: CT Angiography of the neck with contrast HISTORY: stroke COMPARISON: None. TECHNIQUE: Contiguous axial images of the neck were obtained from the level of the skull-base to the superior mediastinum in the arteriographic phase of enhancement. Coronal and sagittal reformats or also generated. IV contrast dose: Radiation dose: Total exam DLP = 651.97 mGy-cm. This CT exam was performed using one or more of the following dose reduction techniques: Automated exposure control, adjustment of the mA and/or kV according to patient size, and/or use of iterative reconstruction technique. FINDINGS: RIGHT CAROTID ARTERIES: Common Carotid Artery: Normal. Carotid Bifurcation: Normal. Internal Carotid Artery:Normal. External Carotid Artery (proximal branches): Normal. LEFT CAROTID ARTERIES: Common Carotid Artery: Normal. Carotid Bifurcation: Normal. Internal Carotid Artery:Normal. External Carotid Artery (proximal branches): Normal. VERTEBRAL ARTERIES: Right Vertebral Artery: Normal. Left Vertebral Artery: Normal. OTHER FINDINGS: Aortic calcification Multinodular goiter. IMPRESSION: No significant stenosis CT Angiography of the Brain. HISTORY: stroke COMPARISON: None available. TECHNIQUE: CT angiography of the intracranial arteries was performed. Coronal and sagittal maximum intensity projection reformated images were generated. Radiation dose: Total exam DLP = 651.97 mGy-cm. This CT exam was performed using one or more of the following dose reduction techniques: Automated exposure control, adjustment of the mA and/or kV according to patient size, and/or use of iterative reconstruction technique. FINDINGS: INTERNAL CEREBRAL ARTERIES: Unremarkable. The skull base, petrous, cavernous and supraclinoid segments are bilaterally widely patent. ANTERIOR CEREBRAL ARTERIES: Unremarkable. A1 and A2 segments are widely patent. Smaller distal branches unremarkable, as visualized. MIDDLE CEREBRAL ARTERIES: Unremarkable. M1 and M2 segments are widely patent. Perisylvian branches grossly symmetric. POSTERIOR CIRCULATION: Basilar Artery: Unremarkable. Distal Vertebral Arteries: Unremarkable. Posterior Cerebral Arteries: Unremarkable. Posterior Inferior Cerebellar Arteries: Unremarkable. ANEURYSM/ VASCULAR MALFORMATIONS: None. OTHER FINDINGS: The report concurs with the preliminary [facility] report IMPRESSION: Unremarkable CT Angiography of the Brain.
[2018-10-07] MEDS ORDERED: Ergocalciferol 50,000 Intl Units Cap PO SCH (09:45)
[2018-10-07] MEDS ORDERED: POLYETHYLENE GLYCOL 3350 17 GM/Dose PACKET PO SCH (10:00)
[2018-10-07] MEDS: Potassium Chloride 20 mEq ER Tab PO SCH ×3 (10:00→17:25)
[2018-10-07] MEDS ORDERED: cefTRIAXone 1 gm 1 GM/100 ML BAG IVPB SCH (10:00)
[2018-10-07] MEDS: Enoxaparin 40 mg Syringe SC SCH (10:07)
[2018-10-07] MEDS: Metoprolol Succinate 100 mg XL Tab PO SCH (10:11)
[2018-10-07 11:31] LABS: ALBUMIN 3.6 g/dL (3.0-4.8); BILIRUBIN,DIRECT 0.3 mg/dL (0.0-0.4)
--- NOTE | 2018-10-07 11:40 | CARD ---
APPROVED REPORT Date of service: 10/06/2018 EKG Measurement Heart [id number] <Conclusion> Sinus tachycardia Minimal voltage criteria for LVH, may be normal variant Borderline ECG
[2018-10-07] MEDS: Insulin Reg-HIGH-Coverage SC SCH ×5 (12:29→22:06)
[2018-10-07] MEDS: Levalbuterol 1.25 MG/3 ML Inhal Soln UD IH SCH ×2 (13:49→19:46)
[2018-10-07 16:26] LABS: FREE T4 1.17 ng/dL (0.78-2.19)
--- NOTE | 2018-10-07 20:51 | CON ---
DATE: 10/07/2018 HISTORY OF PRESENT ILLNESS: This is an 83-year-old black female with a past medical history of diabetes, hypertension, and came to the emergency room and family noticed confusion and slurred speech. She was on a porch and woke up confused and slurred. Brought to the emergency room. Denies any headache. No dizziness. No shortness of breath. CAT scan of the head was done which was negative and called to evaluate the patient and did not show any stroke. PAST MEDICAL HISTORY: Diabetes, neuropathy and coronary artery disease. ALLERGIES: NO KNOWN DRUG ALLERGIES. SOCIAL HISTORY: Does not smoke. Does not drink. PHYSICAL EXAMINATION HEENT: Normocephalic and atraumatic. VITAL SIGNS: Blood pressure 147/70. NEUROLOGIC: Pupils reactive. EOM intact. Visual doss full. No facial asymmetry. Tongue midline. Motor exam; moves all the extremities equally. Tone normal. Deep tendon reflexes 1+. Both plantars are downgoing. Sensory appears intact. Cerebellar gait deferred. IMPRESSION: Mild encephalopathy, confusional state, possibly secondary to pneumonia. CAT scan of the head was reported negative. Continue present management. We will follow up. Luis Chance MD
--- NOTE | 2018-10-07 21:16 | CON ---
DATE: 10/07/2018 REASON FOR ADMISSION: Questionable stroke and dyspnea, acute episode. Consultation for done by Dr. Tineo for "thyroid goiter." INDICATIONS: As stated, the patient is seen at bedside with no inspiratory or expiratory stridor with a normal voice. The patient denies any type of dysphagia or odynophagia. CAT scan was reviewed, a large left-sided thyroid goiter/mass on clinical palpitation, soft cystic like structure and non-palpable adenopathy in the cervical chains. IMPRESSION: Left-sided goiter. RECOMMENDATIONS: At this time, is of fine-needle aspirate to rule out large cystic mass greater than 5 cm seen on CAT scan. A small amount of thyroid hormone 25 mEq as a possible treatment to decrease size. FNA pending results for further treatment. This patient on CAT scan has a patient airway with notable mild shift of the trachea without airway or voice changes. It is not recommended at this point for surgical intervention. We will follow fine-needle aspiration. Jeffery Tineo DO [facility]
[2018-10-07] MEDS: Latanoprost 2.5 ml Opht Soln OU SCH (21:22)
[2018-10-07] MEDS ORDERED: Insulin Human NPH/Reg 70/30 Vial(3 ml) SC SCH (22:00)
--- NOTE | 2018-10-07 22:40 | HP ---
DATE OF EXAM: 10/07/2018 HISTORY OF PRESENT ILLNESS: The patient is an 83-year-old morbidly obese female who was seen in the office yesterday for complains of coughing, shortness of breath, yellow phlegm, and sinus congestion. The patient was seen in the office yesterday and was advised to undergo chest x-ray for evaluation of possible pneumonia, but the patient was taken home by the patient's son instead of taking for the chest x-ray and the patient was apparently left on the porch of the house and the patient was later on was found to be fatigue, lethargic, difficulty speaking, and the patient was sent to the [facility] emergency room for evaluation and while the patient came to the emergency room, code stroke was called. The patient's NIHSS score was 3. The patient did not receive any anti-thrombolytic agents. REVIEW OF SYSTEMS: A 14 systems review as above. CODE STATUS: Full code. LIVING WILL ADVANCE DIRECTIVE: None. ALLERGIES: NONE. Height is 5 feet 4 inches. Weight is 232. BMI is 40. OCCUPATIONAL HISTORY: Disabled elderly obese female. MENSTRUAL HISTORY: Postmenopausal. CURRENT MEDICATIONS: Amitiza 24 mcg daily, Colace 100 mg twice a day, Drisdol 50,000 units weekly, Ecotrin 81 mg daily, Humalog 75/25, 25 units breakfast and dinner, K-Dur 20 mEq three times a day, and Lasix 40 mg 3-4 times a day. The patient's baclofen is discontinued. The patient is on Lyrica 150 mg daily, Lipitor 40 mg daily, and Neurontin has been discontinued. The patient is on Plavix 75 mg daily, Singulair 10 mg daily, and Toprol-XL 100 mg daily. The patient is on Duragesic patch 25 mcg daily. The patient is on Percocet 5/325 one tablet every 12-8 hours p.r.n. SOCIAL HISTORY: Negative for smoking. Negative for alcohol. Negative for communicable transmissible disease. PAST MEDICAL AND SURGICAL HISTORY: History of morbid obesity, history of hypertension, history of deconditioning, history of acute diastolic right-sided congestive heart failure with elevated proBNP and bilateral lower extremity venous stasis, history of normocytic iron-deficiency anemia, status post IV Venofer treatment, history of community-acquired multilobar right-sided pneumonia, history of uncontrolled insulin-requiring diabetes mellitus, history of hypovitaminosis D, history of diabetic neuropathy, history of hypertensive cardiovascular disease, history of severe dietary noncompliance, history of constipation, history of hypokalemia, history 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, history of right-sided diastolic congestive heart failure with elevated proBNP and bilateral lower extremity venous stasis, history of hyperlipidemia, history of left thyroid nodule, status post thyroid nodule biopsy showing follicular adenomatous nodule, history of multinodular goiter, history of thyromegaly, history of gait dysfunction, history of dilated left atrium, history of thickened aortic valve and thickened mitral valve, history of mild tricuspid regurgitation, history of multilobar right-sided pneumonia, history of glaucoma and cataract, history of multinodular thyroid gland with enlarged left thyroid lobe, history of 50% stenosis of the right coronary artery, history of questionable non-ST elevation myocardial infarction with elevated troponin, history of unspecified congestive heart failure, history of cholelithiasis, history of non-ST elevation myocardial infarction with elevated troponin, nonspecific changes in the EKG, history of diabetic retinopathy, and history of lumbar spine degenerative disk disease and foraminal stenosis and central stenosis. Past medical history is also significant for unspecified heart failure, history of diabetic nephropathy, history of lumbar spine degenerative disk disease and spinal disk disease, history of community-acquired pneumonia, history of bilateral thyroid nodules, history of left lower lobe atelectasis, history of 50% mid right coronary artery stenosis, history of cardiac catheterization, questionable history of hypothyroidism, history of severe osteoarthritis of the knees, history of degenerative joint disease of the lumbar spine, history of ultrasound-guided thyroid nodule biopsy showing benign follicular adenomatoid nodule with cystic degeneration, history of cardiac catheterization done in 02/2018 for non-ST elevation myocardial infarction, history of left ventricular ejection fraction of 60%, history of 50% stenosis of the mid right coronary artery disease, history of left ventricular ejection fraction of 63%, and history of thyroid nodule biopsy. Past medical history is also significant for history of coronary artery disease. The patient was admitted after the patient underwent code stroke in the emergency room. The patient underwent extensive diagnostic testing including CT head, CTA, but while the patient was in the ER later on the patient's speech got clear and the patient back to the baseline. PHYSICAL EXAMINATION: VITAL SIGNS: T-max 100.6, heart rate initially 94, 96, and 100, blood pressure 163/100, 148/54, and 153/58, respirations 20, and O2 sat is 94%-95%. HEENT: Head; normocephalic and atraumatic. HEENT examination shows pinkish conjunctivae. Anicteric sclerae. No oropharyngeal lesion. No facial asymmetry. Speech is clear. The patient is alert, awake, and responsive. Positive thyromegaly noted. CHEST: Kyphosis. LUNGS: Shows positive rhonchi, creps, crackles bilaterally right more than the left. CARDIOVASCULAR: S1 and S2, positive questionable systolic murmur left sternal border, right second intercostal space, left second intercostal space. ABDOMEN: Morbidly obese. No palpable hepatosplenomegaly. GENITALIA: Female. RECTAL: Deferred. EXTREMITIES: Shows positive pitting edema of the lower extremity. MUSCULOSKELETAL: Shows an elevated body mass index of 40. NEUROLOGIC: The patient is alert, awake, and oriented x3. Cranial nerves II through XII intact. Gait examination is not tested. The patient is able to move upper and lower extremity without assistance. PSYCHIATRIC: Negative for anxiety. Negative for depression. Negative for suicidal or homicidal ideation. DIAGNOSTIC DATA: CBC shows a hemoglobin and hematocrit of 10.4 and 33.4 and 11.8 and 37.6, WBC count is 6.4 and 7.5, and platelet 142 and 174. ESR is 62. PT/PTT is 13.8 and 35.5. VBG shows a lactate of 1.5. Chemistry shows sodium 139, potassium 3.3 and 3.8, chloride 99 and 103, CO2 of 30 and 28, anion gap 14 and 11, BUN 16 and 14, creatinine 0.8 and 0.9, GFR greater than 60, glucose 107 and 129, hemoglobin A1c 6.6, calcium 8.5, and bilirubin 1.5. Troponin all three sets are negative. Cholesterol 185, LDL 84, and HDL 73. TSH 1.87. Urinalysis shows blood moderate, bacteria few. Urine drug screen is negative. Blood type B+. The patient had a chest x-ray, CT head, CTA of the head and neck, and CT chest all were reviewed. EKG was reviewed. The patient was evaluated and treated in the emergency room by the ER physician. IMPRESSION AND PLAN: 1. Status post code stroke with the patient's resolution of symptoms of lethargy, fatigue, and dysarthria. 2. Questionable transient ischemic infarct. 3. Questionable and possible pneumonia with fever of 100.6. 4. Tachycardia. 5. Hypertension. 6. Transient uncontrolled hypertension. 7. Mild normocytic anemia with granulocytosis, elevated erythrocyte sedimentation rate of 62. 8. Hypokalemia. 9. Well-controlled insulin-requiring diabetes mellitus with hemoglobin A1c of 6.6. 10. Morbid obesity with elevated body mass index of 40. 11. Mild hyperbilirubinemia. 12. Microscopic hematuria and bacteriuria. 13. Sinus tachycardia. 14. Left axis deviation. 15. Right-sided perihilar infiltrate and peribronchial thickening. 16. Thyromegaly with thyroid nodules and enlarged thyroid gland and multinodular thyroid goiter. 17. Multinodular thyroid goiter with enlarging left thyroid lobe. 18. Markedly enlarged left thyroid lobe with substernal extension and associated displacement of the trachea to the right tracheal narrowing. 19. Mild mediastinal lymphadenopathy. 20. Sinus tachycardia with left ventricular hypertrophy and left axis deviation. 21. Insulin-requiring diabetes mellitus. 22. Transient lethargy and fatigue and questionable altered mental status with transient dysarthria (resolved). 23. Right perihilar community-acquired pneumonia. 24. History of constipation. 25. Hypovitaminosis D. 26. Hyperlipidemia. 27. Diabetic neuropathy. 28. History of single-vessel coronary artery disease. Plan at this time, the patient is to be admitted to telemetry. Serial labs, serial EKGs, and serial troponins ordered. Neurology consultation ordered. ENT consultation ordered for evaluation of a thyroid mass, clinical nurse educator, and TCU evaluation ordered. The patient has been given aspirin 81 p.o. daily, Colace 100 mg twice a day, hypoglycemia protocol ordered, doxycycline 100 mg IV every 12 hours, Drisdol 50,000 units weekly, Humalog 5 units with meals, Humalog high-dose sliding scale coverage, K-Dur 20 mEq three times a day, Lasix 40 mg IV every 12 hours, Lipitor 40 mg daily, Lovenox 40 mg subcutaneously daily, MiraLax 17 g twice a day, Percocet 5/325 one tablet every 6 hours p.r.n., Plavix 75 mg daily, Protonix 40 mg daily, Rocephin 1 g IV daily, Singulair 10 mg at bedtime, Toprol-XL 100 mg daily, Tylenol 650 mg p.o. suppository every 6 hours p.r.n., Xalatan eyedrops, Xopenex nebulizer 0.63 mg every 6 hours, and Zofran 4 mg IV every 4 hours p.r.n. MRI and MRA of the brain without contrast ordered, chest PT, incentive spirometry, and oxygen 2 L ordered. Diabetic consistent carbohydrate diet. DARRYN stockings, SCDs, out of bed to chair, physical therapy, and occupational therapy all ordered. The patient's condition, diagnosis, and further management will depend upon the patient's clinical condition, hemodynamic status and as per the patient response to therapeutic intervention, as per the patient's diagnostic test results and as per recommendation by all the physicians involved in the care of the patient. Dictated and electronically signed, not read. Lucio Cruz MD
[2018-10-08] MEDS: Levalbuterol 1.25 MG/3 ML Inhal Soln UD IH SCH ×4 (04:30→19:23)
[2018-10-08] MEDS: Pantoprazole 40 mg EC Tab PO SCH (05:16)
--- NOTE | 2018-10-08 07:34 | CP.PCM.PN ---
Subjective - Date & Time of Evaluation Date of Evaluation: 10/08/18 Time of Evaluation: 07:32 - Subjective Subjective: Donna Delgado DO, PGY-2: Progress Note for Dr. Cruz Patient was seen and examined at bedside. Nurse reports patient had a temperature of 103 F last night. and was given Tylenol with relief. Patient was not symptomatic with the fever. Patient reports she was unable to tolerate MRI yesterday. She still has wheezes on exam. Objective - Vital Signs/Intake and Output Vital Signs (last 24 hours): Temp Pulse Resp BP Pulse Ox 99.7 F H 90 20 137/71 96 10/08/18 06:00 10/08/18 06:00 10/08/18 06:00 10/08/18 06:00 10/08/18 06:00 Intake and Output: 10/08/18 10/08/18 06:59 18:59 Intake Total 280 Output Total 1000 Balance -720 - Medications Medications: Current Medications Acetaminophen (Tylenol 325mg Tab) 650 mg PO Q6H PRN PRN Reason: Fever >100.4 F Last Admin: 10/07/18 21:07 Dose: 650 mg Acetaminophen (Tylenol 325mg Tab) 650 mg PO Q6 PRN PRN Reason: TEMP>=99.5F Acetaminophen (Tylenol 650 Mg Supp) 650 mg RC Q6H PRN PRN Reason: TEMP>=99.5F Aspirin (Aspirin Chewable) 81 mg PO DAILY [facility] Last Admin: 10/07/18 10:11 Dose: 81 mg Atorvastatin Calcium (Lipitor) 40 mg PO DIN [facility] Last Admin: 10/07/18 17:18 Dose: 40 mg Cefpodoxime Proxetil (Vantin) 200 mg PO Q12 [facility] Clopidogrel Bisulfate (Plavix) 75 mg PO DAILY [facility] Last Admin: 10/07/18 10:08 Dose: 75 mg Dextrose (Dextrose 50% Inj) 0 ml IV STAT PRN; Protocol PRN Reason: Hypoglycemia Protocol Docusate Sodium (Colace) 100 mg PO BID [facility] Last Admin: 10/07/18 14:34 Dose: Not Given Doxycycline Hyclate (Doryx) 100 mg PO Q12 [facility] Enoxaparin Sodium (Lovenox) 40 mg SC DAILY [facility]; Protocol Last Admin: 10/07/18 10:07 Dose: 40 mg Ergocalciferol (Drisdol 50,000 Intl Units Cap) 1 cap PO Q7D [facility] Last Admin: 10/07/18 12:28 Dose: 1 cap Furosemide (Lasix) 40 mg IVP Q12 [facility] Last Admin: 10/07/18 21:08 Dose: 40 mg Dextrose (Dextrose 5% In Water 1000 Ml) 1,000 mls @ 0 mls/hr IV .Q0M PRN; Pro tocol PRN Reason: Hypoglycemia Protocol Insulin Human Lispro (Humalog) 5 units SC AC [facility] Last Admin: 10/07/18 17:18 Dose: 5 units Insulin Human Regular (Humulin R High) 0 units SC ACHS [facility]; Protocol Last Admin: 10/07/18 22:06 Dose: Not Given Latanoprost (Xalatan Opht) 0 ml OU HS [facility] Last Admin: 10/07/18 21:22 Dose: 2.5 ml Levalbuterol HCl (Xopenex) 0.63 mg IH [id number] [facility] Last Admin: 10/08/18 07:24 Dose: 0.63 mg Metoprolol Succinate (Toprol Xl) 100 mg PO BRK [facility] Last Admin: 10/07/18 10:11 Dose: 100 mg Montelukast Sodium (Singulair) 10 mg PO HS [facility] Last Admin: 10/07/18 22:14 Dose: 10 mg Morphine Sulfate (Morphine) 1 mg IVP ONCE ONE Stop: 10/08/18 09:01 Ondansetron HCl (Zofran Inj) 4 mg IVP Q4H PRN PRN Reason: Nausea/Vomiting Oxycodone/Acetaminophen (Percocet 5/325 Mg Tab) 1 tab PO Q6H PRN PRN Reason: Pain, severe (8-10) Stop: 10/09/18 22:09 Last Admin: 10/07/18 10:58 Dose: 1 tab Pantoprazole Sodium (Protonix Ec Tab) 40 mg PO 0600 [facility] Last Admin: 10/08/18 05:16 Dose: 40 mg Polyethylene Glycol (Miralax) 17 gm PO BID [facility] Last Admin: 10/07/18 10:07 Dose: Not Given Potassium Chloride (K-Dur 20 Meq Er Tab) 20 meq PO TID [facility] Last Admin: 10/07/18 17:25 Dose: 20 meq - Labs Labs: 10/07/18 07:30 10/07/18 07:30 PT 13.8 SECONDS (9.4-12.5) H 10/06/18 19:45 INR 1.24 10/06/18 19:45 APTT 35.5 Seconds (26.9-38.3) 10/06/18 19:45 - Constitutional Appears: Non-toxic, No Acute Distress - Head Exam Head Exam: ATRAUMATIC, NORMOCEPHALIC - Eye Exam Eye Exam: EOMI, Normal appearance - ENT Exam ENT Exam: Mucous Membranes Moist - Neck Exam Neck Exam: Normal Inspection - Respiratory Exam Respiratory Exam: Wheezes, NORMAL BREATHING PATTERN. absent: Accessory Muscle Use - Cardiovascular Exam Cardiovascular Exam: RRR, +S1, +S2 - GI/Abdominal Exam GI & Abdominal Exam: Soft, Normal Bowel Sounds - Extremities Exam Extremities Exam: Normal Inspection. absent: Calf Tenderness - Neurological Exam Neurological Exam: Awake. absent: Oriented x3 - Skin Skin Exam: Dry, Intact, Normal Color, Warm Assessment and Plan - Assessment and Plan (Free Text) Assessment: 1. Transient Altered mental status - Head CT: no acute pathology - CTA head/neck: no stenosis- multinodular goiter - MRI/MRA brain are negative - neurology consulted, Dr. Luis Chance - passed bedside swallow eval- resume diet - PT eval - Continue ASA, Lipitor, Plavix - troponins x 3 negative 2) Acute bronchitis with periodic fevers - CTA of chest negative for PE and pneumonia - Procalcitonin low, ESR and CRP elevated - Blood cultures negative - Recommend Prednisone 40 mg x 5 days as patient has wheezing - Antibiotics per Infectious Disease - CT of the abdomen and pelvis with PO contrast ordered 3. DM - Carb consistent/HHD - NPH 10HS, Lispro 5AC - accucheck ACHS 4. LE Edema - secondary to unspecified HFpEF - Lasix 40 mg q12 w/ BP holding parameters - monitor I&O 5. HTN - Toprol and Lasix with BP holding parameters 6. HLD - Lipitor 7. DJD - Percocet prn pain - Hold fentanyl patch 8. Multinodular goiter - known history - will check thyroid panel - last thyroid US in 02/2018 - ENT consulted, Dr. Tavares/Noman - ENT recommends FNA to reduce size of multicystic goiter GI ppx: Protonix DVT ppx: Lovenox Case seen, discussed and reviewed with Dr. Cruz
[2018-10-08 07:39] LABS: HEMOGLOBIN 10.2 g/dL (12.0-16.0); MEAN CELL VOLUME 88.1 fl (80.0-105.0); MEAN CORPUSCULAR HEMOGLOBIN 27.6 pg (25.0-35.0); MEAN CORPUSCULAR HGB CONC 31.4 g/dl (31.0-37.0); MEAN PLATELET VOLUME 11.1 fl (7.0-11.0); RBC 3.69 10^6/uL (3.5-6.1); RED CELL DISTRIBUTION WIDTH 14.4 % (11.5-14.5); WHITE BLOOD COUNT 5.7 10^3/uL (4.5-11.0)
[2018-10-08 07:58] LABS: ALBUMIN 3.4 g/dL (3.0-4.8); ALT/SGPT 28 U/L (7-56); AST/SGOT 38 U/L (14-36); BILIRUBIN,DIRECT 0.4 mg/dL (0.0-0.4); BLOOD UREA NITROGEN 13 mg/dL (7-21); CALCIUM 7.7 mg/dL (8.4-10.5); GFR NON-AFRICAN AMERICAN > 60
[2018-10-08] MEDS ORDERED: Morphine 2 mg/ml ISec IVP ONE ×2 (09:00)
--- NOTE | 2018-10-08 09:31 | MRI ---
Date of service: 10/08/2018 PROCEDURE: MRI BRAIN WITHOUT CONTRAST HISTORY: r/o cva COMPARISON: None available. TECHNIQUE: Multiplanar, multisequence MR images of the brain were obtained without intravenous contrast enhancement. FINDINGS: HEMORRHAGE: None DWI: No evidence of an acute or early subacute infarction. BRAIN PARENCHYMA: No mass effect or edema. No atrophy or chronic microvascular ischemic changes. VENTRICLES: Unremarkable. No hydrocephalus. CRANIUM: Unremarkable. ORBITS: Grossly unremarkable. PARANASAL SINUSES/MASTOIDS: Clear VASCULAR SYSTEM: Skull base flow voids intact. OTHER FINDINGS: None. IMPRESSION: No acute intracranial finding
--- NOTE | 2018-10-08 09:33 | MRI ---
Date of service: 10/08/2018 PROCEDURE: Magnetic Resonance Angiography Brain HISTORY: r/o cva COMPARISON: None available. TECHNIQUE: 3D time of flight MR angiography of the intracranial arteries was performed. Rotating maximum intensity projection images were generated. FINDINGS: INTERNAL CAROTID ARTERIES: Unremarkable. The skull base, petrous, cavernous and supraclinoid segments are bilaterally widely patient. ANTERIOR CEREBRAL ARTERIES: Unremarkable. A1 and A2 segments are widely patent. Smaller distal branches unremarkable, as visualized. MIDDLE CEREBRAL ARTERIES: Unremarkable. M1 and M2 segments are widely patent. Perisylvian branches grossly symmetric. POSTERIOR CIRCULATION: Basilar Artery: Unremarkable. Distal Vertebral Arteries: Unremarkable. Posterior Cerebral Arteries: Unremarkable. Posterior Inferior Cerebellar Arteries: Unremarkable. ANEURYSM/ VASCULAR MALFORMATIONS: None. OTHER FINDINGS: None. IMPRESSION: Unremarkable MR angiography of the brain.
[2018-10-08] MEDS ORDERED: Barium Sulfate Susp 2.1% w/v, 2.0% w/w 450 mL Bottle PO ONE (09:39)
[2018-10-08] MEDS ORDERED: Cefpodoxime (Vantin) 200 mg Tab PO SCH (10:00)
[2018-10-08] MEDS: Potassium Chloride 20 mEq ER Tab PO SCH ×3 (10:09→18:36)
[2018-10-08] MEDS: Insulin Reg-HIGH-Coverage SC SCH ×4 (10:10→22:53)
[2018-10-08] MEDS: Enoxaparin 40 mg Syringe SC SCH (10:10)
[2018-10-08] MEDS: Insulin Lispro 1 UNITS/0.01 ML SC SCH ×3 (10:11→18:36)
[2018-10-08] MEDS ORDERED: Magnesium Sulfate 2 gm/50 ml 2 GM/50 ML BAG IVPB ONE (10:33)
[2018-10-08] MEDS: Metoprolol Succinate 100 mg XL Tab PO SCH (11:01)
--- NOTE | 2018-10-08 11:23 | CP.PCM.CON ---
<Napoleon Tony - Last Filed: 10/08/18 15:27> History of Present Illness - History of Present Illness History of Present Illness: Infectious disease consult note: 83-year-old female with past medical history of hypertension, hyperlipidemia, diabetic neuropathy and possible retinopathy, CAD, heart failure presents the hospital with altered mental status, slurred speech and confusion. Patient has been worked up for her altered mental status including ruling out an acute stroke. Head CT, brain MRI, brain MRA and head and neck CT have all been unremarkable. Patient does complain of cough that has been going on since 4 to 5 days ago. She states the cough is nonproductive. She does complain of pleuritic pain related to the cough as well as right upper quadrant pain but she also attributes the cough. She denies any urinary symptoms, abdominal pain, nausea, or vomiting. Infectious disease was consulted for fevers, elevated ESR and CRP. 12 point ROS performed negative other than stated above PMH: As above PSH: Denies Medications: Refer to MAR Allergies: No known drug allergies SH: Denies any smoking, drinking, or drugs FH: Noncontributory Review of Systems - Review of Systems All systems: reviewed and no additional remarkable complaints except Past Patient History - Infectious Disease Hx of Infectious Diseases: None - Past Social History Smoking Status: Never Smoked - CARDIAC Hx Cardiac Disorders: Yes Hx Hypercholesterolemia: Yes (HLD) Hx Hypertension: Yes - PULMONARY Hx Respiratory Disorders: Yes Hx Pneumonia: Yes - NEUROLOGICAL Hx Neurological Disorder: No - HEENT Hx HEENT Problems: Yes Hx Blind: Yes (right eye) Hx Cataracts: Yes (both eyes) Hx Glaucoma: Yes (right) - RENAL Hx Chronic Kidney Disease: No - ENDOCRINE/METABOLIC Hx Diabetes Mellitus Type 2: Yes - HEMATOLOGICAL/ONCOLOGICAL Hx Blood Disorders: No - INTEGUMENTARY Hx Dermatological Problems: No - MUSCULOSKELETAL/RHEUMATOLOGICAL Hx Musculoskeletal Disorders: Yes Hx Degenerative Joint Disease: Yes Hx Falls: No - GASTROINTESTINAL Hx Gastrointestinal Disorders: Yes Hx Gastroesophageal Reflux: Yes - GENITOURINARY/GYNECOLOGICAL Hx Genitourinary Disorders: No - PSYCHIATRIC Hx Psychophysiologic Disorder: Yes - SURGICAL HISTORY Hx Surgeries: Yes (b/l cataract) Hx Cardiac Catheterization: Yes Hx Orthopedic Surgery: Yes - ANESTHESIA Hx Anesthesia Reactions: No Hx Malignant Hyperthermia: No Meds Allergies/Adverse Reactions: Allergies Allergy/AdvReac Type Severity Reaction Status Date / Time No Known Allergies Allergy Verified 09/17/15 17:31 - Medications Medications: Current Medications Acetaminophen (Tylenol 325mg Tab) 650 mg PO Q6H PRN PRN Reason: Fever >100.4 F Last Admin: 10/07/18 21:07 Dose: 650 mg Acetaminophen (Tylenol 325mg Tab) 650 mg PO Q6 PRN PRN Reason: TEMP>=99.5F Acetaminophen (Tylenol 650 Mg Supp) 650 mg RC Q6H PRN PRN Reason: TEMP>=99.5F Aspirin (Aspirin Chewable) 81 mg PO DAILY [facility] Last Admin: 10/08/18 10:09 Dose: 81 mg Atorvastatin Calcium (Lipitor) 40 mg PO DIN [facility] Last Admin: 10/07/18 17:18 Dose: 40 mg Cefpodoxime Proxetil (Vantin) 200 mg PO Q12 [facility] Last Admin: 10/08/18 11:01 Dose: 200 mg Clopidogrel Bisulfate (Plavix) 75 mg PO DAILY [facility] Last Admin: 10/08/18 10:09 Dose: 75 mg Dextrose (Dextrose 50% Inj) 0 ml IV STAT PRN; Protocol PRN Reason: Hypoglycemia Protocol Docusate Sodium (Colace) 100 mg PO BID [facility] Last Admin: 10/07/18 14:34 Dose: Not Given Doxycycline Hyclate (Doryx) 100 mg PO Q12 [facility] Last Admin: 10/08/18 11:00 Dose: 100 mg Enoxaparin Sodium (Lovenox) 40 mg SC DAILY [facility]; Protocol Last Admin: 10/08/18 10:10 Dose: 40 mg Ergocalciferol (Drisdol 50,000 Intl Units Cap) 1 cap PO Q7D [facility] Last Admin: 10/07/18 12:28 Dose: 1 cap Furosemide (Lasix) 40 mg IVP Q12 [facility] Last Admin: 10/08/18 10:11 Dose: 40 mg Dextrose (Dextrose 5% In Water 1000 Ml) 1,000 mls @ 0 mls/hr IV .Q0M PRN; Protocol PRN Reason: Hypoglycemia Protocol Magnesium Sulfate (Magnesium Sulfate 2 Gm/50 Ml Water) 2 gm in 50 mls @ 50 mls/hr IVPB ONCE ONE Stop: 10/08/18 11:32 Insulin Human Lispro (Humalog) 5 units SC AC [facility] Last Admin: 10/08/18 10:11 Dose: 5 units Insulin Human Regular (Humulin R High) 0 units SC ACHS [facility]; Protocol Last Admin: 10/08/18 10:10 Dose: 2 units Latanoprost (Xalatan Opht) 0 ml OU HS [facility] Last Admin: 10/07/18 21:22 Dose: 2.5 ml Levalbuterol HCl (Xopenex) 0.63 mg IH [id number] [facility] Last Admin: 10/08/18 07:24 Dose: 0.63 mg Metoprolol Succinate (Toprol Xl) 100 mg PO BRK [facility] Last Admin: 10/08/18 11:01 Dose: 100 mg Montelukast Sodium (Singulair) 10 mg PO HS [facility] Last Admin: 10/07/18 22:14 Dose: 10 mg Ondansetron HCl (Zofran Inj) 4 mg IVP Q4H PRN PRN Reason: Nausea/Vomiting Oxycodone/Acetaminophen (Percocet 5/325 Mg Tab) 1 tab PO Q6H PRN PRN Reason: Pain, severe (8-10) Stop: 10/09/18 22:09 Last Admin: 10/07/18 10:58 Dose: 1 tab Pantoprazole Sodium (Protonix Ec Tab) 40 mg PO 0600 [facility] Last Admin: 10/08/18 05:16 Dose: 40 mg Polyethylene Glycol (Miralax) 17 gm PO BID [facility] Last Admin: 10/07/18 10:07 Dose: Not Given Potassium Chloride (K-Dur 20 Meq Er Tab) 20 meq PO TID [facility] Last Admin: 10/08/18 10:09 Dose: 20 meq Physical Exam - Constitutional Appears: No Acute Distress - Head Exam Head Exam: ATRAUMATIC, NORMOCEPHALIC - Eye Exam Eye Exam: EOMI - ENT Exam ENT Exam: Mucous Membranes Moist - Respiratory Exam Respiratory Exam: Clear to Auscultation Bilateral, Wheezes (mild). absent: Rales, Rhonchi - Cardiovascular Exam Cardiovascular Exam: REGULAR RHYTHM, +S1, +S2 - GI/Abdominal Exam GI & Abdominal Exam: Normal Bowel Sounds, Soft. absent: Tenderness - Extremities Exam Extremities exam: Negative for: calf tenderness, pedal edema - Neurological Exam Neurological exam: Alert, Oriented x3 - Psychiatric Exam Psychiatric exam: Normal Mood - Skin Skin Exam: Dry, Normal Color Results - Vital Signs Recent Vital Signs: Last Vital Signs Temp 99.7 F H 05/22/19 06:00 Pulse 90 10/08/18 06:00 Resp 20 10/08/18 06:00 BP 132/63 10/08/18 11:01 Pulse Ox 96 10/08/18 06:00 - Labs Result Diagrams: 10/08/18 07:20 10/08/18 07:20 Labs: Laboratory Results - last 24 hr 10/06/18 10/07/18 10/07/18 19:45 11:00 11:06 WBC RBC Hgb Hct MCV MCH MCHC RDW Plt Count MPV ESR Sodium Potassium Chloride Carbon Dioxide Anion Gap BUN Creatinine Est GFR ( Amer) Est GFR (Non-Af Amer) POC Glucose (mg/dL) 186 H Random Glucose Hemoglobin A1c 6.6 H Fructosamine Calcium Magnesium 1.7 Total Bilirubin 1.4 H Direct Bilirubin 0.3 AST 32 ALT 26 Alkaline Phosphatase 115 C-Reactive Protein Total Protein 7.1 Albumin 3.6 Globulin 3.5 Albumin/Globulin Ratio 1.0 L Triglycerides 68 Cholesterol 168 LDL Cholesterol Direct 82 HDL Cholesterol 54 Procalcitonin Free T4 Thyroxine (T4) 10/07/18 10/07/18 10/07/18 13:00 13:00 13:00 WBC RBC Hgb Hct MCV MCH MCHC RDW Plt Count MPV ESR 62 H Sodium Potassium Chloride Carbon Dioxide Anion Gap BUN Creatinine Est GFR ( Amer) Est GFR (Non-Af Amer) POC Glucose (mg/dL) Random Glucose Hemoglobin A1c Fructosamine 262 Calcium Magnesium Total Bilirubin Direct Bilirubin AST ALT Alkaline Phosphatase C-Reactive Protein Total Protein Albumin Globulin Albumin/Globulin Ratio Triglycerides Cholesterol LDL Cholesterol Direct HDL Cholesterol Procalcitonin 0.15 L Free T4 Thyroxine (T4) 10/07/18 10/07/18 10/07/18 13:00 15:00 16:21 WBC RBC Hgb Hct MCV MCH MCHC RDW Plt Count MPV ESR Sodium Potassium Chloride Carbon Dioxide Anion Gap BUN Creatinine Est GFR ( Amer) Est GFR (Non-Af Amer) POC Glucose (mg/dL) 166 H Random Glucose Hemoglobin A1c Fructosamine Calcium Magnesium Total Bilirubin Direct Bilirubin AST ALT Alkaline Phosphatase C-Reactive Protein 142.10 H Total Protein Albumin Globulin Albumin/Globulin Ratio Triglycerides Cholesterol LDL Cholesterol Direct HDL Cholesterol Procalcitonin Free T4 1.17 Thyroxine (T4) 6.8 10/07/18 10/08/18 10/08/18 21:26 07:20 07:20 WBC 5.7 RBC 3.69 Hgb 10.2 L Hct 32.5 L MCV 88.1 MCH 27.6 MCHC 31.4 RDW 14.4 Plt Count 127 MPV 11.1 H ESR Sodium 136 Potassium 3.6 Chloride 102 Carbon Dioxide 28 Anion Gap 10 BUN 13 Creatinine 0.7 Est GFR ( Amer) > 60 Est GFR (Non-Af Amer) > 60 POC Glucose (mg/dL) 174 H Random Glucose 177 H Hemoglobin A1c Fructosamine Calcium 7.7 L Magnesium 1.7 Total Bilirubin 1.7 H Direct Bilirubin 0.4 AST 38 H ALT 28 Alkaline Phosphatase 104 C-Reactive Protein Total Protein 6.9 Albumin 3.4 Globulin 3.5 Albumin/Globulin Ratio 1.0 L Triglycerides Cholesterol LDL Cholesterol Direct HDL Cholesterol Procalcitonin Free T4 Thyroxine (T4) 10/08/18 07:24 WBC RBC Hgb Hct MCV MCH MCHC RDW Plt Count MPV ESR Sodium Potassium Chloride Carbon Dioxide Anion Gap BUN Creatinine Est GFR ( Amer) Est GFR (Non-Af Amer) POC Glucose (mg/dL) 194 H Random Glucose Hemoglobin A1c Fructosamine Calcium Magnesium Total Bilirubin Direct Bilirubin AST ALT Alkaline Phosphatase C-Reactive Protein Total Protein Albumin Globulin Albumin/Globulin Ratio Triglycerides Cholesterol LDL Cholesterol Direct HDL Cholesterol Procalcitonin Free T4 Thyroxine (T4) Assessment & Plan - Assessment and Plan (Free Text) Assessment: Sepsis likely secondary to community-acquired pneumonia Persistent fevers Elevated ESR and CRP CHF Diabetes mellitus with neuropathy and retinopathy Coronary artery disease? Heart failure? Thyroid mass D/xochilt Vantin and started Cefepime. Cont Doxy Follow-up CT of the abdomen and pelvis with p.o. contrast Abd us ordered to r/o cholecystitis CXR ordered, will f/u Follow-up septic work-up Blood cultures thus far negative, procal neg Procalcitonin thus far negative Follow-up with neurology and ENT recommendations Continue to monitor for any changes Case and plan to be reviewed and discussed with Dr. Naylor <Andres Naylor - Last Filed: 10/08/18 21:28> Meds - Medications Medications: Current Medications Acetaminophen (Tylenol 325mg Tab) 650 mg PO Q6H PRN PRN Reason: Fever >100.4 F Last Admin: 05/21/19 21:07 Dose: 650 mg Acetaminophen (Tylenol 325mg Tab) 650 mg PO Q6 PRN PRN Reason: TEMP>=99.5F Acetaminophen (Tylenol 650 Mg Supp) 650 mg RC Q6H PRN PRN Reason: TEMP>=99.5F Aspirin (Aspirin Chewable) 81 mg PO DAILY [facility] Last Admin: 10/08/18 10:09 Dose: 81 mg Atorvastatin Calcium (Lipitor) 40 mg PO DIN [facility] Last Admin: 10/08/18 18:36 Dose: 40 mg Clopidogrel Bisulfate (Plavix) 75 mg PO DAILY [facility] Last Admin: 10/08/18 10:09 Dose: 75 mg Dextrose (Dextrose 50% Inj) 0 ml IV STAT PRN; Protocol PRN Reason: Hypoglycemia Protocol Docusate Sodium (Colace) 100 mg PO BID [facility] Last Admin: 10/07/18 14:34 Dose: Not Given Doxycycline Hyclate (Doryx) 100 mg PO Q12 [facility] Last Admin: 10/08/18 11:00 Dose: 100 mg Enoxaparin Sodium (Lovenox) 40 mg SC DAILY [facility]; Protocol Last Admin: 10/08/18 10:10 Dose: 40 mg Ergocalciferol (Drisdol 50,000 Intl Units Cap) 1 cap PO Q7D [facility] Last Admin: 10/07/18 12:28 Dose: 1 cap Furosemide (Lasix) 40 mg IVP Q12 [facility] Last Admin: 10/08/18 10:11 Dose: 40 mg Dextrose (Dextrose 5% In Water 1000 Ml) 1,000 mls @ 0 mls/hr IV .Q0M PRN; Protocol PRN Reason: Hypoglycemia Protocol Cefepime HCl (Maxipime 1gm) 1 gm in 100 mls @ 100 mls/hr IVPB Q12 [facility]; Protocol Insulin Human Lispro (Humalog) 5 units SC AC [facility] Last Admin: 10/08/18 18:36 Dose: 5 units Insulin Human Regular (Humulin R High) 0 units SC ACHS [facility]; Protocol Last Admin: 10/08/18 18:37 Dose: 7 units Latanoprost (Xalatan Opht) 0 ml OU HS [facility] Last Admin: 10/07/18 21:22 Dose: 2.5 ml Levalbuterol HCl (Xopenex) 0.63 mg IH [id number] [facility] Last Admin: 10/08/18 19:23 Dose: 0.63 mg Metoprolol Succinate (Toprol Xl) 100 mg PO BRK [facility] Last Admin: 10/08/18 11:01 Dose: 100 mg Montelukast Sodium (Singulair) 10 mg PO HS [facility] Last Admin: 10/07/18 22:14 Dose: 10 mg Ondansetron HCl (Zofran Inj) 4 mg IVP Q4H PRN PRN Reason: Nausea/Vomiting Oxycodone/Acetaminophen (Percocet 5/325 Mg Tab) 1 tab PO Q6H PRN PRN Reason: Pain, severe (8-10) Stop: 10/09/18 22:09 Last Admin: 10/07/18 10:58 Dose: 1 tab Pantoprazole Sodium (Protonix Ec Tab) 40 mg PO 0600 [facility] Last Admin: 10/08/18 05:16 Dose: 40 mg Polyethylene Glycol (Miralax) 17 gm PO BID [facility] Last Admin: 10/07/18 10:07 Dose: Not Given Potassium Chloride (K-Dur 20 Meq Er Tab) 20 meq PO TID [facility] Last Admin: 10/08/18 18:36 Dose: 20 meq Results - Vital Signs Recent Vital Signs: Last Vital Signs Temp 97.8 F 10/08/18 19:32 Pulse 89 10/08/18 19:32 Resp 19 10/08/18 19:32 BP 122/58 L 10/08/18 19:32 Pulse Ox 96 10/08/18 06:00 - Labs Result Diagrams: 10/08/18 07:20 10/08/18 07:20 Labs: Laboratory Results - last 24 hr 10/07/18 10/07/18 10/08/18 13:00 21:26 07:20 WBC 5.7 RBC 3.69 Hgb 10.2 L Hct 32.5 L MCV 88.1 MCH 27.6 MCHC 31.4 RDW 14.4 Plt Count 127 MPV 11.1 H Sodium Potassium Chloride Carbon Dioxide Anion Gap BUN Creatinine Est GFR ( Amer) Est GFR (Non-Af Amer) POC Glucose (mg/dL) 174 H Random Glucose Fructosamine 262 Calcium Magnesium Total Bilirubin Direct Bilirubin AST ALT Alkaline Phosphatase Total Protein Albumin Globulin Albumin/Globulin Ratio 10/08/18 10/08/18 10/08/18 07:20 07:24 11:29 WBC RBC Hgb Hct MCV MCH MCHC RDW Plt Count MPV Sodium 136 Potassium 3.6 Chloride 102 Carbon Dioxide 28 Anion Gap 10 BUN 13 Creatinine 0.7 Est GFR ( Amer) > 60 Est GFR (Non-Af Amer) > 60 POC Glucose (mg/dL) 194 H 269 H Random Glucose 177 H Fructosamine Calcium 7.7 L Magnesium 1.7 Total Bilirubin 1.7 H Direct Bilirubin 0.4 AST 38 H ALT 28 Alkaline Phosphatase 104 Total Protein 6.9 Albumin 3.4 Globulin 3.5 Albumin/Globulin Ratio 1.0 L 10/08/18 16:41 WBC RBC Hgb Hct MCV MCH MCHC RDW Plt Count MPV Sodium Potassium Chloride Carbon Dioxide Anion Gap BUN Creatinine Est GFR ( Amer) Est GFR (Non-Af Amer) POC Glucose (mg/dL) 276 H Random Glucose Fructosamine Calcium Magnesium Total Bilirubin Direct Bilirubin AST ALT Alkaline Phosphatase Total Protein Albumin Globulin Albumin/Globulin Ratio Assessment & Plan - Assessment and Plan (Free Text) Assessment: SIRS Attending/Attestation - Attestation I have personally seen and examined this patient.: Yes I have fully participated in the care of the patient.: Yes I have reviewed all pertinent clinical information: Yes
--- NOTE | 2018-10-08 14:26 | PN ---
DATE: 10/08/2018 LOCATION: The patient is in room 277, bed 1. SUBJECTIVE: Overnight nurse's notes were reviewed. The patient spiked a fever of 103 degrees Fahrenheit. The patient still complains of some cough and difficulty expectoration. PHYSICAL EXAMINATION: VITAL SIGNS: T-max 103 degrees Fahrenheit. Telemetry shows sinus rhythm, heart rate 90-84, blood pressure 137/71, respirations 20, and O2 sat 96%. HEAD: Normocephalic, atraumatic. HEENT: Shows pinkish pale conjunctivae. Anicteric sclerae. No oropharyngeal lesion. Positive thyromegaly noted. CHEST: Kyphosis. LUNGS: Still shows positive rhonchi upper lung and anterior lung field. No wheezing. Also shows fine and crackles at the bases. CARDIOVASCULAR: S1 and S2, regular rhythm. Positive systolic murmur left sternal border, right second intercostal space, left second intercostal space. ABDOMEN: Obese, positive bowel sound. No palpable hepatosplenomegaly. GENITALIA: Female. RECTAL: Deferred. EXTREMITIES: Shows trace swelling of the lower extremity, decreasing pitting edema. MUSCULOSKELETAL: Shows elevated body mass index. NEUROLOGICAL: The patient is alert, awake, responsive, is able to move upper and lower extremity without assistance. Gait examination is not tested. PSYCHIATRIC: Negative for anxiety, depression. Negative for auditory, visual hallucination. Negative for suicidal, homicidal ideation. DIAGNOSTIC DATA: 10/08/2018; WBC count is 5.7, hemoglobin/hematocrit 10.2/32.5, platelets 127. Sodium 136, potassium 3.6, chloride 102, CO2 of 28, BUN 13, creatinine 0.7, glucose 177, calcium 7.7, magnesium 1.7. AST 38, hemoglobin A1c 6.6. CRP greater than 142. Procalcitonin level is negative at 0.15. The patient was seen by ENT. Their recommendations were reviewed. The patient was seen by Neurology. Their recommendations were reviewed. The patient is awaiting for MRI, MRA of the brain, which was supposed to be done yesterday, but was unable to be done because of unknown reason. IMPRESSION AND PLAN: 1. Right-sided community-acquired pneumonia. 2. Transient altered mental status with questionable transient dysarthria (resolved). 3. Questionable transient ischemic attack as per the emergency room, and status post code stroke as per emergency room. 4. Hypertension. 5. Normocytic anemia. 6. Borderline hypokalemia. 7. Borderline hypomagnesemia. 8. Mild transaminitis. 9. Well-controlled insulin-requiring diabetes mellitus with hemoglobin A1c of 6.6. 10. Elevated C-reactive protein of greater than 142. 11. Markedly enlarged thyroid gland, left more than the right with tracheal deviation and mild tracheal compression. 12. Transient encephalopathy (resolved). 13. Morbid obesity with elevated body mass index. 14. 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 15. Chronic pain syndrome. 16. Gait dysfunction. 17. Morbid obesity. 18. History of diabetic neuropathy. 19. History of constipation. 20. Unspecified congestive heart failure with bilateral lower extremity venous stasis. 21. Hypertensive cardiovascular disease. 22. High-grade fever. PLAN: At this time, the patient will be requested an ID consult. The patient will be ordered p.r.n. Tylenol. The patient will be continued on broad-spectrum IV antibiotics as per the MAR of today. The patient will be given potassium and magnesium supplementation. The patient will be continued on all the therapeutic intervention as per the MAR of today. In addition, the patient will be continued on pharmacological, non-pharmacological, GI and DVT prophylaxis. The patient will be continued on basal and bolus insulin with sliding scale coverage. The patient will be continued on IV diuretics, Lasix with potassium supplementation. The patient will be continued on out of bed to chair, physical therapy, occupational therapy, ambulation therapy, and gait training. The patient has been updated about her condition, diagnosis, test results, recommendation at length in layman's language. All questions concerned answered, which she acknowledged and understood. At present, the patient's further management will be dependent upon the patient's clinical condition, hemodynamic status and as per the patient's response to therapeutic intervention as per the patient's diagnostic test results and as per recommendation by all the physicians involved in the care of the patient. The patient's MRI, MRA of the brain is pending, which will be reviewed when available. Dictated and electronically signed, not read. Lucio Cruz MD
--- NOTE | 2018-10-08 15:05 | CT ---
Date of service: 10/08/2018 PROCEDURE: CT Abdomen and Pelvis without intravenous contrast HISTORY: fever of unknown origin COMPARISON: None. TECHNIQUE: Without contrast.. Contrast dose: Radiation dose: Total exam DLP = 1385.58 mGy-cm. This CT exam was performed using one or more of the following dose reduction techniques: Automated exposure control, adjustment of the mA and/or kV according to patient size, and/or use of iterative reconstruction technique. FINDINGS: LOWER THORAX: Unremarkable. LIVER: Unremarkable. No gross lesion or ductal dilatation. GALLBLADDER AND BILE DUCTS: Calcified gallstones the largest measuring 17 mm PANCREAS: Atrophy with fatty infiltration SPLEEN: Unremarkable. ADRENALS: Unremarkable. No mass. KIDNEYS AND URETERS: Unremarkable. No hydronephrosis. No solid mass. VASCULATURE: Unremarkable. No aortic aneurysm. No aortic atherosclerotic calcification or mural plaque present. BOWEL: Unremarkable. No obstruction. No gross mural thickening. APPENDIX: Unremarkable. Normal appendix. PERITONEUM: Unremarkable. No free fluid. No free air. LYMPH NODES: Unremarkable. No enlarged lymph nodes. BLADDER: Unremarkable. REPRODUCTIVE: Unremarkable. BONES: There is severe multilevel disc degeneration with severe spinal stenosis throughout the lumbar spine OTHER FINDINGS: None. IMPRESSION: Gallstones. Severe spinal stenosis. No acute intra-abdominal findings
--- NOTE | 2018-10-08 15:11 | CP.PCM.PCO ---
Physician Communication Note - Physician Communication Note Physician Communication Note: continue IV antibiotics as per ID
--- NOTE | 2018-10-08 15:37 | RAD ---
Date of service: 10/08/2018 HISTORY: r/o pneumonia COMPARISON: 10/06/2018 TECHNIQUE: 1 view obtained. FINDINGS: LUNGS: Mild peribronchial thickening. No pneumonia PLEURA: No significant pleural effusion identified, no pneumothorax apparent. CARDIOVASCULAR: No aortic atherosclerotic calcification present. Normal cardiac size. No pulmonary vascular congestion. OSSEOUS STRUCTURES: No significant abnormalities. VISUALIZED UPPER ABDOMEN: Normal. OTHER FINDINGS: None. IMPRESSION: Mild peribronchial thickening. No evidence of pneumonia
--- NOTE | 2018-10-08 16:52 | US ---
Date of service: 10/08/2018 HISTORY: r/o cholecystitis COMPARISON: October 08, 2018. CT abdomen and pelvis. TECHNIQUE: Sonographic evaluation of the abdomen. FINDINGS: LIVER: Measures 14.1 cm. Patent portal and hepatic venous systems. Hepatopedal blood flow. Fatty infiltration manifest ultrasonographically as increased echogenicity of the liver parenchyma. No mass. No intrahepatic bile duct dilatation. GALLBLADDER: Cholelithiasis. Negative study for gallbladder wall thickening, pericholecystic fluid, sonographic Posada's sign. COMMON BILE DUCT: Measures 7.2 mm. No stones. No dilatation. PANCREAS: Unremarkable as visualized. No mass. No ductal dilatation. RIGHT KIDNEY: Measures 6 x 9.4cm. Normal echogenicity. No calculus, mass, or hydronephrosis. LEFT KIDNEY: Measures 4.7 x 10.3cm. Normal echogenicity. No calculus, mass, or hydronephrosis.Incidental finding(s): Midpole cyst 9 mm. SPLEEN: Normal in size and contour. No mass. AORTA: No aneurysmal dilatation. IVC: Unremarkable. OTHER FINDINGS: None. IMPRESSION: Cholelithiasis. No sonographic evidence of acute cholecystitis. Hepatic steatosis. Additional benign and/or incidental findings described above.
[2018-10-08] MEDS: Latanoprost 2.5 ml Opht Soln OU SCH (22:18)
[2018-10-08] MEDS: Cefepime 1gm in NS 100ml 1 GM/100 ML BAG IVPB SCH (22:18)
[2018-10-09] MEDS: Levalbuterol 1.25 MG/3 ML Inhal Soln UD IH SCH ×4 (01:48→19:59)
[2018-10-09] MEDS: Pantoprazole 40 mg EC Tab PO SCH (05:50)
--- NOTE | 2018-10-09 07:33 | CP.PCM.PN ---
<Napoleon Tony - Last Filed: 10/09/18 12:50> Subjective - Date & Time of Evaluation Date of Evaluation: 10/09/18 Time of Evaluation: 09:35 - Subjective Subjective: Infectious disease progress note: Patient seen and examined at bedside. No acute events overnight. Afebrile. States that her cough has improved. No complaints. 12 point ROS performed and negative unless stated above. Objective - Vital Signs/Intake and Output Vital Signs (last 24 hours): Temp Pulse Resp BP Pulse Ox 98 F 80 20 144/74 96 10/09/18 05:57 10/09/18 05:57 10/09/18 05:57 10/09/18 05:57 10/09/18 05:57 Intake and Output: 10/09/18 10/09/18 06:59 18:59 Intake Total 340 Balance 340 - Medications Medications: Current Medications Acetaminophen (Tylenol 325mg Tab) 650 mg PO Q6H PRN PRN Reason: Fever >100.4 F Last Admin: 10/07/18 21:07 Dose: 650 mg Acetaminophen (Tylenol 325mg Tab) 650 mg PO Q6 PRN PRN Reason: TEMP>=99.5F Acetaminophen (Tylenol 650 Mg Supp) 650 mg RC Q6H PRN PRN Reason: TEMP>=99.5F Aspirin (Aspirin Chewable) 81 mg PO DAILY [facility] Last Admin: 10/08/18 10:09 Dose: 81 mg Atorvastatin Calcium (Lipitor) 40 mg PO DIN [facility] Last Admin: 10/08/18 18:36 Dose: 40 mg Clopidogrel Bisulfate (Plavix) 75 mg PO DAILY [facility] Last Admin: 10/08/18 10:09 Dose: 75 mg Dextrose (Dextrose 50% Inj) 0 ml IV STAT PRN; Protocol PRN Reason: Hypoglycemia Protocol Docusate Sodium (Colace) 100 mg PO BID [facility] Last Admin: 10/07/18 14:34 Dose: Not Given Doxycycline Hyclate (Doryx) 100 mg PO Q12 [facility] Last Admin: 10/08/18 22:16 Dose: 100 mg Enoxaparin Sodium (Lovenox) 40 mg SC DAILY [facility]; Protocol Last Admin: 10/08/18 10:10 Dose: 40 mg Ergocalciferol (Drisdol 50,000 Intl Units Cap) 1 cap PO Q7D [facility] Last Admin: 10/07/18 12:28 Dose: 1 cap Furosemide (Lasix) 40 mg IVP Q12 [facility] Last Admin: 10/08/18 22:16 Dose: 40 mg Dextrose (Dextrose 5% In Water 1000 Ml) 1,000 mls @ 0 mls/hr IV .Q0M PRN; Protocol PRN Reason: Hypoglycemia Protocol Cefepime HCl (Maxipime 1gm) 1 gm in 100 mls @ 100 mls/hr IVPB Q12 [facility]; Protocol Last Admin: 10/08/18 22:18 Dose: 100 mls/hr Insulin Human Lispro (Humalog) 5 units SC AC [facility] Last Admin: 10/08/18 18:36 Dose: 5 units Insulin Human Regular (Humulin R High) 0 units SC ACHS [facility]; Protocol Last Admin: 10/08/18 22:53 Dose: Not Given Latanoprost (Xalatan Opht) 0 ml OU HS [facility] Last Admin: 10/08/18 22:18 Dose: 2.5 ml Levalbuterol HCl (Xopenex) 0.63 mg IH [id number] [facility] Last Admin: 10/09/18 01:48 Dose: 0.63 mg Metoprolol Succinate (Toprol Xl) 100 mg PO BRK [facility] Last Admin: 10/08/18 11:01 Dose: 100 mg Montelukast Sodium (Singulair) 10 mg PO HS [facility] Last Admin: 10/08/18 22:18 Dose: 10 mg Ondansetron HCl (Zofran Inj) 4 mg IVP Q4H PRN PRN Reason: Nausea/Vomiting Oxycodone/Acetaminophen (Percocet 5/325 Mg Tab) 1 tab PO Q6H PRN PRN Reason: Pain, severe (8-10) Stop: 10/09/18 22:09 Last Admin: 10/07/18 10:58 Dose: 1 tab Pantoprazole Sodium (Protonix Ec Tab) 40 mg PO 0600 [facility] Last Admin: 10/09/18 05:50 Dose: 40 mg Polyethylene Glycol (Miralax) 17 gm PO BID [facility] Last Admin: 10/07/18 10:07 Dose: Not Given Potassium Chloride (K-Dur 20 Meq Er Tab) 20 meq PO TID [facility] Last Admin: 10/08/18 18:36 Dose: 20 meq - Labs Labs: 10/08/18 07:20 10/08/18 07:20 PT 13.8 SECONDS (9.4-12.5) H 10/06/18 19:45 INR 1.24 10/06/18 19:45 APTT 35.5 Seconds (26.9-38.3) 10/06/18 19:45 - Constitutional Appears: No Acute Distress - Eye Exam Eye Exam: EOMI - Respiratory Exam Respiratory Exam: Clear to Ausculation Bilateral. absent: Rales, Rhonchi, Wheezes - Cardiovascular Exam Cardiovascular Exam: REGULAR RHYTHM, +S1, +S2 - GI/Abdominal Exam GI & Abdominal Exam: Soft. absent: Tenderness - Extremities Exam Extremities Exam: absent: Calf Tenderness, Pedal Edema - Neurological Exam Neurological Exam: Alert, Awake - Psychiatric Exam Psychiatric exam: Normal Mood - Skin Skin Exam: Dry, Warm Assessment and Plan - Assessment and Plan (Free Text) Assessment: Sepsis likely secondary to community-acquired pneumonia Persistent fevers Elevated ESR and CRP CHF Diabetes mellitus with neuropathy and retinopathy Coronary artery disease? Heart failure? Thyroid mass Continue Cefepime day2 and Doxy day 2 F/u Hida scan to r/o cholecystitis Follow-up CT of the abdomen and pelvis with p.o. contrast - gallstone and severe spinal stenosis Abd us - cholethiasis CXR - bronchial thickening, no pneumonia Follow-up septic work-up Blood cultures thus far negative, procal neg Procalcitonin thus far negative Follow-up with neurology and ENT recommendations Continue to monitor for any changes Case and plan to be reviewed and discussed with Dr. Naylor <Andres Naylor - Last Filed: 10/09/18 12:53> Objective - Vital Signs/Intake and Output Vital Signs (last 24 hours): Temp Pulse Resp BP Pulse Ox 97.4 F L 82 20 119/72 96 10/09/18 12:00 10/09/18 12:00 10/09/18 12:00 10/09/18 12:00 10/09/18 05:57 Intake and Output: 10/09/18 10/09/18 06:59 18:59 Intake Total 340 Balance 340 - Medications Medications: Current Medications Acetaminophen (Tylenol 325mg Tab) 650 mg PO Q6H PRN PRN Reason: Fever >100.4 F Last Admin: 10/07/18 21:07 Dose: 650 mg Acetaminophen (Tylenol 325mg Tab) 650 mg PO Q6 PRN PRN Reason: TEMP>=99.5F Acetaminophen (Tylenol 650 Mg Supp) 650 mg RC Q6H PRN PRN Reason: TEMP>=99.5F Aspirin (Aspirin Chewable) 81 mg PO DAILY [facility] Last Admin: 10/09/18 10:54 Dose: 81 mg Atorvastatin Calcium (Lipitor) 40 mg PO DIN [facility] Last Admin: 10/08/18 18:36 Dose: 40 mg Clopidogrel Bisulfate (Plavix) 75 mg PO DAILY [facility] Last Admin: 10/09/18 10:54 Dose: 75 mg Dextrose (Dextrose 50% Inj) 0 ml IV STAT PRN; Protocol PRN Reason: Hypoglycemia Protocol Docusate Sodium (Colace) 100 mg PO BID [facility] Last Admin: 10/07/18 14:34 Dose: Not Given Doxycycline Hyclate (Doryx) 100 mg PO Q12 [facility] Last Admin: 10/09/18 10:54 Dose: 100 mg Enoxaparin Sodium (Lovenox) 40 mg SC DAILY [facility]; Protocol Last Admin: 10/09/18 10:55 Dose: 40 mg Ergocalciferol (Drisdol 50,000 Intl Units Cap) 1 cap PO Q7D [facility] Last Admin: 10/07/18 12:28 Dose: 1 cap Furosemide (Lasix) 40 mg IVP Q12 [facility] Last Admin: 10/09/18 10:55 Dose: 40 mg Dextrose (Dextrose 5% In Water 1000 Ml) 1,000 mls @ 0 mls/hr IV .Q0M PRN; Protocol PRN Reason: Hypoglycemia Protocol Cefepime HCl (Maxipime 1gm) 1 gm in 100 mls @ 100 mls/hr IVPB Q12 [facility]; Protocol Last Admin: 10/09/18 10:55 Dose: 100 mls/hr Insulin Human Lispro (Humalog) 5 units SC AC [facility] Last Admin: 10/09/18 12:10 Dose: 5 units Insulin Human Regular (Humulin R High) 0 units SC ACHS [facility]; Protocol Last Admin: 10/09/18 12:10 Dose: 7 units Latanoprost (Xalatan Opht) 0 ml OU HS [facility] Last Admin: 10/08/18 22:18 Dose: 2.5 ml Levalbuterol HCl (Xopenex) 0.63 mg IH [id number] [facility] Last Admin: 10/09/18 08:22 Dose: Not Given Metoprolol Succinate (Toprol Xl) 100 mg PO BRK [facility] Last Admin: 10/09/18 08:45 Dose: 100 mg Montelukast Sodium (Singulair) 10 mg PO HS [facility] Last Admin: 10/08/18 22:18 Dose: 10 mg Ondansetron HCl (Zofran Inj) 4 mg IVP Q4H PRN PRN Reason: Nausea/Vomiting Oxycodone/Acetaminophen (Percocet 5/325 Mg Tab) 1 tab PO Q6H PRN PRN Reason: Pain, severe (8-10) Stop: 10/09/18 22:09 Last Admin: 10/07/18 10:58 Dose: 1 tab Pantoprazole Sodium (Protonix Ec Tab) 40 mg PO 0600 [facility] Last Admin: 10/09/18 05:50 Dose: 40 mg Polyethylene Glycol (Miralax) 17 gm PO BID [facility] Last Admin: 10/07/18 10:07 Dose: Not Given Potassium Chloride (K-Dur 20 Meq Er Tab) 20 meq PO TID [facility] Last Admin: 10/09/18 10:54 Dose: 20 meq - Labs Labs: 10/09/18 09:15 10/09/18 09:15 PT 13.8 SECONDS (9.4-12.5) H 10/06/18 19:45 INR 1.24 10/06/18 19:45 APTT 35.5 Seconds (26.9-38.3) 10/06/18 19:45 Attending/Attestation - Attestation I have personally seen and examined this patient.: Yes I have fully participated in the care of the patient.: Yes I have reviewed all pertinent clinical information, including history, physical exam and plan: Yes
--- NOTE | 2018-10-09 08:01 | CP.PCM.DIS ---
Provider - Provider Date of Admission: 10/06/18 20:51 Attending physician: Lucio Cruz MD Primary care physician: Lucio Cruz MD Consults: 10/06/18 19:09 Stroke Team Consult Stat Comment: stroke Consulting Provider: Neurohospitalist Consulting Physician: NEUROHOSP Neurohospitalist for Consult: Flo Meng Neurohospitalist for Consult: Arnold,Gautami Reason for Consult: stroke 10/06/18 20:16 Consult [Physician Consult] Stat Comment: Consulting Provider: Luis Chance Consulting Physician: Luis Chance Reason for Consult: AMS, ?tia 10/07/18 09:43 Otolaryngology Consult Routine Consulting Provider: Tai Tavares Consulting Physician: Tai Tavares Reason for Consult: THYROID MASS 10/07/18 09:45 Diabetic Education Referral DAILY Comment: DIABETIC EDUCATION Physician Instructions: DIABETIC EDUCATION Reason For Exam: [facility] DM TCU [Evaluation for TRCU] DAILY Comment: TCU Physician Instructions: TCU Reason For Exam: TCU 10/08/18 09:37 Physician Consult Stat Comment: Consulting Provider: Andres Naylor Consulting Physician: Andres Naylor Reason for Consult: fevers at night, elevated ESR, CRP 10/08/18 09:45 Diabetic Education Referral DAILY Comment: DIABETIC EDUCATION Physician Instructions: DIABETIC EDUCATION Reason For Exam: [facility] DM TCU [Evaluation for TRCU] DAILY Comment: TCU Physician Instructions: TCU Reason For Exam: TCU 10/08/18 10:31 Infectious Disease Consult Routine Comment: Consulting Provider: Andres Naylor Consulting Physician: Andres Naylor Reason for Consult: FEVER 10/09/18 09:45 Diabetic Education Referral DAILY Comment: DIABETIC EDUCATION Physician Instructions: DIABETIC EDUCATION Reason For Exam: [facility] DM TCU [Evaluation for TRCU] DAILY Comment: TCU Physician Instructions: TCU Reason For Exam: TCU 10/10/18 09:45 Diabetic Education Referral DAILY Comment: DIABETIC EDUCATION Physician Instructions: DIABETIC EDUCATION Reason For Exam: [facility] DM TCU [Evaluation for TRCU] DAILY Comment: TCU Physician Instructions: TCU Reason For Exam: TCU 10/11/18 09:45 Diabetic Education Referral DAILY Comment: DIABETIC EDUCATION Physician Instructions: DIABETIC EDUCATION Reason For Exam: [facility] DM TCU [Evaluation for TRCU] DAILY Comment: TCU Physician Instructions: TCU Reason For Exam: TCU 10/12/18 09:45 Diabetic Education Referral DAILY Comment: DIABETIC EDUCATION Physician Instructions: DIABETIC EDUCATION Reason For Exam: [facility] DM TCU [Evaluation for TRCU] DAILY Comment: TCU Physician Instructions: TCU Reason For Exam: TCU 10/13/18 09:45 Diabetic Education Referral DAILY Comment: DIABETIC EDUCATION Physician Instructions: DIABETIC EDUCATION Reason For Exam: [facility] DM TCU [Evaluation for TRCU] DAILY Comment: TCU Physician Instructions: TCU Reason For Exam: TCU 10/14/18 09:45 Diabetic Education Referral DAILY Comment: DIABETIC EDUCATION Physician Instructions: DIABETIC EDUCATION Reason For Exam: [facility] DM TCU [Evaluation for TRCU] DAILY Comment: TCU Physician Instructions: TCU Reason For Exam: TCU 10/15/18 09:45 Diabetic Education Referral DAILY Comment: DIABETIC EDUCATION Physician Instructions: DIABETIC EDUCATION Reason For Exam: [facility] DM TCU [Evaluation for TRCU] DAILY Comment: TCU Physician Instructions: TCU Reason For Exam: TCU 10/16/18 09:45 Diabetic Education Referral DAILY Comment: DIABETIC EDUCATION Physician Instructions: DIABETIC EDUCATION Reason For Exam: [facility] DM TCU [Evaluation for TRCU] DAILY Comment: TCU Physician Instructions: TCU Reason For Exam: TCU 10/17/18 09:45 Diabetic Education Referral DAILY Comment: DIABETIC EDUCATION Physician Instructions: DIABETIC EDUCATION Reason For Exam: [facility] DM TCU [Evaluation for TRCU] DAILY Comment: TCU Physician Instructions: TCU Reason For Exam: TCU Time Spent in preparation of Discharge (in minutes): 35 Hospital Course - Lab Results Lab Results: Micro Results 10/06/18 20:00 Blood Blood Culture - Preliminary NO GROWTH AFTER 48 HOURS 10/06/18 19:45 Blood Blood Culture - Preliminary NO GROWTH AFTER 48 HOURS Most Recent Lab Values WBC 5.7 10^3/uL (4.5-11.0) 10/08/18 07:20 RBC 3.69 10^6/uL (3.5-6.1) 10/08/18 07:20 Hgb 10.2 g/dL (12.0-16.0) L 10/08/18 07:20 Hct 32.5 % (36.0-48.0) L 10/08/18 07:20 MCV 88.1 fl (80.0-105.0) 10/08/18 07:20 MCH 27.6 pg (25.0-35.0) 10/08/18 07:20 MCHC 31.4 g/dl (31.0-37.0) 10/08/18 07:20 RDW 14.4 % (11.5-14.5) 10/08/18 07:20 Plt Count 127 10^3/uL (120.0-450.0) 10/08/18 07:20 MPV 11.1 fl (7.0-11.0) H 10/08/18 07:20 Neut % (Auto) 78.3 % (50.0-68.0) H 10/06/18 19:45 Lymph % (Auto) 14.8 % (22.0-35.0) L 10/06/18 19:45 [place] % (Auto) 5.9 % (1.0-6.0) 10/06/18 19:45 Eos % (Auto) 0.9 % (1.5-5.0) L 10/06/18 19:45 Baso % (Auto) 0.1 % (0.0-3.0) 10/06/18 19:45 Lymph # (Auto) 1.1 (1.2-3.4) L 10/06/18 19:45 [place] # (Auto) 0.4 (0.1-0.6) 10/06/18 19:45 Eos # (Auto) 0.1 (0.0-0.7) 10/06/18 19:45 Baso # (Auto) 0.01 K/mm3 (0.0-2.0) 10/06/18 19:45 Absolute Neuts (auto) 5.88 (1.4-6.5) 10/06/18 19:45 ESR 62 mm/hr (0.0-20.0) H 10/07/18 13:00 PT 13.8 SECONDS (9.4-12.5) H 10/06/18 19:45 INR 1.24 10/06/18 19:45 APTT 35.5 Seconds (26.9-38.3) 10/06/18 19:45 pO2 54 mm/Hg (30-55) 10/06/18 20:46 VBG pH 7.37 (7.32-7.43) 10/06/18 20:46 VBG pCO2 50.0 (40-60) 10/06/18 20:46 VBG HCO3 28.9 mmol/l (21-28) H 10/06/18 20:46 VBG Total CO2 30.4 mmol.L (22-28) H 10/06/18 20:46 VBG O2 Sat (Calc) 90.3 % (40-65) H 10/06/18 20:46 VBG Base Excess 2.7 mmol/L (0.0-2.0) H 10/06/18 20:46 VBG Potassium 3.6 mmol/L (3.6-5.2) 10/06/18 20:46 Sodium 137.0 mmol/L (132-148) 10/06/18 20:46 Chloride 101.0 mmol/L (98-107) 10/06/18 20:46 Glucose 101 mg/dl (65-105) 10/06/18 20:46 Lactate 1.5 mmol/L (0.7-2.1) 10/06/18 20:46 FiO2 21.0 % 10/06/18 20:46 Sodium 136 mmol/L (132-148) 10/08/18 07:20 Potassium 3.6 mmol/L (3.6-5.0) 10/08/18 07:20 Chloride 102 mmol/L (98-107) 10/08/18 07:20 Carbon Dioxide 28 mmol/L (21-33) 10/08/18 07:20 Anion Gap 10 (10-20) 10/08/18 07:20 BUN 13 mg/dL (7-21) 10/08/18 07:20 Creatinine 0.7 mg/dl (0.7-1.2) 10/08/18 07:20 Est GFR ( Amer) > 60 10/08/18 07:20 Est GFR (Non-Af Amer) > 60 10/08/18 07:20 POC Glucose (mg/dL) 189 mg/dL (65-110) H 10/09/18 07:30 Random Glucose 177 mg/dL (70-110) H 10/08/18 07:20 Hemoglobin A1c 6.6 % (4.2-6.5) H 10/06/18 19:45 Fructosamine 262 umol/L (190-270) 10/07/18 13:00 Calcium 7.7 mg/dL (8.4-10.5) L 10/08/18 07:20 Magnesium 1.7 mg/dL (1.7-2.2) 10/08/18 07:20 Total Bilirubin 1.7 mg/dL (0.2-1.3) H 10/08/18 07:20 Direct Bilirubin 0.4 mg/dL (0.0-0.4) 10/08/18 07:20 AST 38 U/L (14-36) H 10/08/18 07:20 ALT 28 U/L (7-56) 10/08/18 07:20 Alkaline Phosphatase 104 U/L (38-126) 10/08/18 07:20 Total Creatine Kinase 183 U/L (35-230) 10/06/18 19:45 Troponin I < 0.01 ng/mL 10/07/18 07:30 C-Reactive Protein 142.10 mg/L (0.0-9.9) H 10/07/18 13:00 NT-Pro-B Natriuret Pep 210 pg/mL (0-450) 10/06/18 19:45 Total Protein 6.9 g/dL (5.8-8.3) 10/08/18 07:20 Albumin 3.4 g/dL (3.0-4.8) 10/08/18 07:20 Globulin 3.5 gm/dL 10/08/18 07:20 Albumin/Globulin Ratio 1.0 (1.1-1.8) L 10/08/18 07:20 Triglycerides 68 mg/dL (35-160) 10/07/18 11:00 Cholesterol 168 mg/dL (130-200) 10/07/18 11:00 LDL Cholesterol Direct 82 mg/dL (0-129) 10/07/18 11:00 HDL Cholesterol 54 mg/dL (29-60) 10/07/18 11:00 Procalcitonin 0.15 NG/ML (0.19-0.49) L 10/07/18 13:00 Free T4 1.17 ng/dL (0.78-2.19) 10/07/18 15:00 Thyroxine (T4) 6.8 ug/dL (5.5-11.0) 10/07/18 15:00 TSH 3rd Generation 1.87 mIU/mL (0.46-4.68) 10/06/18 23:20 Venous Blood Potassium 3.6 mmol/L (3.6-5.2) 10/06/18 20:46 Urine Color Yellow (YELLOW) 10/06/18 21:02 Urine Appearance Clear (CLEAR) 10/06/18 21:02 Urine pH 7.0 (4.7-8.0) 10/06/18 21:02 Ur Specific [place] 1.010 (1.005-1.035) 10/06/18 21:02 Urine Protein Negative mg/dL (<30 mg/dL) 10/06/18 21:02 Urine Glucose (UA) Negative mg/dL (NEGATIVE) 10/06/18 21:02 Urine Ketones Negative mg/dL (NEGATIVE) 10/06/18 21:02 Urine Blood Moderate (NEGATIVE) H 10/06/18 21:02 Urine Nitrate Negative (NEGATIVE) 10/06/18 21:02 Urine Bilirubin Negative (NEGATIVE) 10/06/18 21:02 Urine Urobilinogen 1.0 E.U./dL (<1 E.U./dL) H 10/06/18 21:02 Ur Leukocyte Esterase Negative [place]ana/uL (NEGATIVE) 10/06/18 21:02 Urine RBC 1 - 3 /hpf (0-2) H 10/06/18 21:02 Urine WBC 0 - 2 /hpf (0-6) 10/06/18 21:02 Ur Epithelial Cells 0 - 2 /hpf (0-5) 10/06/18 21:02 Urine Bacteria Few /hpf (NONE) 10/06/18 21:02 Urine Opiates Screen Negative (NEGATIVE) 10/06/18 21:02 Urine Methadone Screen Negative (NEGATIVE) 10/06/18 21:02 Ur Barbiturates Screen Negative (NEGATIVE) 10/06/18 21:02 Ur Phencyclidine Scrn Negative (NEGATIVE) 10/06/18 21:02 Ur Amphetamines Screen Negative (NEGATIVE) 10/06/18 21:02 U Benzodiazepines Scrn Negative (NEGATIVE) 10/06/18 21:02 U Oth Cocaine Metabols Negative (NEGATIVE) 10/06/18 21:02 U Cannabinoids Screen Negative (NEGATIVE) 10/06/18 21:02 Blood Type B POSITIVE 10/06/18 20:00 Blood Type Confirm B POSITIVE 10/06/18 21:00 Antibody Screen Negative 10/06/18 20:00 BBK History Checked No verified bt 10/06/18 20:00 - Hospital Course Hospital Course: Discharge Summary date 10/10/2018 83 year old female with a past medical history of HTN, HLD, DM-1, DJD, diabetic neuropathy, questionable CAD, possible diabetic retinopathy, unspecified HF was brought in to ED by family for slurred speech and confusion. The patient recently saw her PMD for a persistent cough and was asked to get an outpatient chest X-ray. After her visit with the PMD, the mother fell asleep on the porch for some time and when she was woken up by family she had slurred speech. In the ED CT of the head was negative, as were the CTA of head and neck, MRI of brain, and MRA of head. On admission, patient was found to be have a fever, which persisted for another night. A Ct of the chest was performed to evaluate for pneumonia which only redemonstrated large cystic thyroid for which otolaryngology was consulted who recommended FNA. For the patient's fever she was empirically started on antibiotics, third generation cephalosporing and docycycline. ID was consulted as the etiology of the fever was unclear. Further work up, including but not limited to CT of the abdomen and pelvis showed gallstones and severe spinal stenosis while the US of the abdomen suggested no evidence of acute cholecystitis. She was put on Cefepime and Doxycycline by ID and has not had a fever in the last 48 hours. A HIDA scan was ordered to evaluate the cystic duct and was negative. The patient will be transferred to the TCU for rehabilitation for deconditioning. - Date & Time of H&P Date of H&P: 10/10/18 Time of H&P: 12:43 Discharge Exam - Head Exam Head Exam: ATRAUMATIC, NORMOCEPHALIC - Eye Exam Eye Exam: EOMI, Normal appearance - ENT Exam ENT Exam: Mucous Membranes Moist - Neck Exam Neck exam: Normal Inspection - Respiratory Exam Respiratory Exam: Clear to PA & Lateral, NORMAL BREATHING PATTERN. absent: Accessory Muscle Use - Cardiovascular Exam Cardiovascular Exam: RRR, +S1, +S2 - GI/Abdominal Exam GI & Abdominal Exam: absent: Guarding, Rebound - Extremities Exam Extremities exam: normal inspection - Neurological Exam Neurological exam: Alert, CN II-XII Intact, Oriented x3 - Psychiatric Exam Psychiatric exam: Normal Affect, Normal Mood - Skin Skin Exam: Dry, Intact, Normal Color, Warm Discharge Plan - Follow Up Plan Condition: FAIR Disposition: REHAB FACILITY/REHAB UNIT Additional Instructions: MAY DISCHARGE TO TCU UNDER SERVICE AFTER CLEARED BY INFECTIOUS DISEASE AND IF HIDA SCAN NEGATIVE DISCHARGE MEDS PER Jul Referrals: Lucio Cruz MD [Primary Care Provider] - 1 Day (MAY DISCHARGE TO TCU UNDER SERVICE AFTER CLEARED BY INFECTIOUS DISEASE AND IF HIDA SCAN NEGATIVE DISCHARGE MEDS PER Jul)
[2018-10-09] MEDS: Insulin Lispro 1 UNITS/0.01 ML SC SCH ×3 (08:25→16:40)
[2018-10-09] MEDS: Insulin Reg-HIGH-Coverage SC SCH ×4 (08:26→22:07)
[2018-10-09] MEDS: Metoprolol Succinate 100 mg XL Tab PO SCH (08:45)
[2018-10-09 09:35] LABS: HEMOGLOBIN 10.8 g/dL (12.0-16.0); MEAN CELL VOLUME 88.7 fl (80.0-105.0); MEAN CORPUSCULAR HEMOGLOBIN 27.2 pg (25.0-35.0); MEAN CORPUSCULAR HGB CONC 30.7 g/dl (31.0-37.0); MEAN PLATELET VOLUME 12.3 fl (7.0-11.0); RBC 3.97 10^6/uL (3.5-6.1); RED CELL DISTRIBUTION WIDTH 14.3 % (11.5-14.5); WHITE BLOOD COUNT 4.6 10^3/uL (4.5-11.0)
[2018-10-09 09:51] LABS: ALBUMIN 3.9 g/dL (3.0-4.8); ALT/SGPT 28 U/L (7-56); AST/SGOT 42 U/L (14-36); BILIRUBIN,DIRECT 0.4 mg/dL (0.0-0.4); BLOOD UREA NITROGEN 16 mg/dL (7-21); CALCIUM 8.3 mg/dL (8.4-10.5); GFR NON-AFRICAN AMERICAN > 60
[2018-10-09] MEDS: Potassium Chloride 20 mEq ER Tab PO SCH ×3 (10:54→17:34)
[2018-10-09] MEDS: Enoxaparin 40 mg Syringe SC SCH (10:55)
[2018-10-09] MEDS: Cefepime 1gm in NS 100ml 1 GM/100 ML BAG IVPB SCH ×2 (10:55→22:05)
--- NOTE | 2018-10-09 12:54 | CP.PCM.PCO ---
Physician Communication Note - Physician Communication Note Physician Communication Note: HIDA Scan pending
--- NOTE | 2018-10-09 15:19 | CP.PCM.PN ---
Subjective - Date & Time of Evaluation Date of Evaluation: 10/09/18 Time of Evaluation: 06:45 - Subjective Subjective: Donna Russo DO, PGY-2: Progress Note for Dr. Cruz Patient was seen and examined at bedside. Patient reports that her cough is present and still bothersome. She denies any fever, chills, nausea, vomiting, or shortness of breath. No adverse events were noted in the interim. Objective - Vital Signs/Intake and Output Vital Signs (last 24 hours): Temp Pulse Resp BP Pulse Ox 97.4 F L 79 20 119/72 96 10/09/18 12:00 10/09/18 14:00 10/09/18 12:00 10/09/18 12:00 10/09/18 05:57 Intake and Output: 10/09/18 10/09/18 06:59 18:59 Intake Total 340 Balance 340 - Medications Medications: Current Medications Acetaminophen (Tylenol 325mg Tab) 650 mg PO Q6H PRN PRN Reason: Fever >100.4 F Last Admin: 10/07/18 21:07 Dose: 650 mg Acetaminophen (Tylenol 325mg Tab) 650 mg PO Q6 PRN PRN Reason: TEMP>=99.5F Acetaminophen (Tylenol 650 Mg Supp) 650 mg RC Q6H PRN PRN Reason: TEMP>=99.5F Aspirin (Aspirin Chewable) 81 mg PO DAILY [facility] Last Admin: 10/09/18 10:54 Dose: 81 mg Atorvastatin Calcium (Lipitor) 40 mg PO DIN [facility] Last Admin: 10/08/18 18:36 Dose: 40 mg Clopidogrel Bisulfate (Plavix) 75 mg PO DAILY [facility] Last Admin: 10/09/18 10:54 Dose: 75 mg Dextrose (Dextrose 50% Inj) 0 ml IV STAT PRN; Protocol PRN Reason: Hypoglycemia Protocol Docusate Sodium (Colace) 100 mg PO BID [facility] Last Admin: 10/07/18 14:34 Dose: Not Given Doxycycline Hyclate (Doryx) 100 mg PO Q12 [facility] Last Admin: 10/09/18 10:54 Dose: 100 mg Enoxaparin Sodium (Lovenox) 40 mg SC DAILY [facility]; Protocol Last Admin: 10/09/18 10:55 Dose: 40 mg Ergocalciferol (Drisdol 50,000 Intl Units Cap) 1 cap PO Q7D [facility] Last Admin: 10/07/18 12:28 Dose: 1 cap Furosemide (Lasix) 40 mg IVP Q12 [facility] Last Admin: 10/09/18 10:55 Dose: 40 mg Dextrose (Dextrose 5% In Water 1000 Ml) 1,000 mls @ 0 mls/hr IV .Q0M PRN; Protocol PRN Reason: Hypoglycemia Protocol Cefepime HCl (Maxipime 1gm) 1 gm in 100 mls @ 100 mls/hr IVPB Q12 [facility]; Protocol Last Admin: 10/09/18 10:55 Dose: 100 mls/hr Insulin Human Lispro (Humalog) 5 units SC AC [facility] Last Admin: 10/09/18 12:10 Dose: 5 units Insulin Human Regular (Humulin R High) 0 units SC ACHS [facility]; Protocol Last Admin: 10/09/18 12:10 Dose: 7 units Latanoprost (Xalatan Opht) 0 ml OU HS [facility] Last Admin: 10/08/18 22:18 Dose: 2.5 ml Levalbuterol HCl (Xopenex) 0.63 mg IH [id number] [facility] Last Admin: 10/09/18 13:39 Dose: 0.63 mg Metoprolol Succinate (Toprol Xl) 100 mg PO BRK [facility] Last Admin: 10/09/18 08:45 Dose: 100 mg Montelukast Sodium (Singulair) 10 mg PO HS [facility] Last Admin: 10/08/18 22:18 Dose: 10 mg Ondansetron HCl (Zofran Inj) 4 mg IVP Q4H PRN PRN Reason: Nausea/Vomiting Oxycodone/Acetaminophen (Percocet 5/325 Mg Tab) 1 tab PO Q6H PRN PRN Reason: Pain, severe (8-10) Stop: 10/09/18 22:09 Last Admin: 10/07/18 10:58 Dose: 1 tab Pantoprazole Sodium (Protonix Ec Tab) 40 mg PO 0600 [facility] Last Admin: 10/09/18 05:50 Dose: 40 mg Polyethylene Glycol (Miralax) 17 gm PO BID [facility] Last Admin: 10/07/18 10:07 Dose: Not Given Potassium Chloride (K-Dur 20 Meq Er Tab) 20 meq PO TID [facility] Last Admin: 10/09/18 14:10 Dose: 20 meq - Labs Labs: 10/09/18 09:15 10/09/18 09:15 PT 13.8 SECONDS (9.4-12.5) H 10/06/18 19:45 INR 1.24 10/06/18 19:45 APTT 35.5 Seconds (26.9-38.3) 10/06/18 19:45 - Constitutional Appears: Well, Non-toxic - Head Exam Head Exam: ATRAUMATIC, NORMOCEPHALIC - Eye Exam Eye Exam: EOMI, Normal appearance - ENT Exam ENT Exam: Mucous Membranes Moist - Neck Exam Neck Exam: Normal Inspection - Respiratory Exam Respiratory Exam: Wheezes, NORMAL BREATHING PATTERN. absent: Accessory Muscle Use - Cardiovascular Exam Cardiovascular Exam: RRR, +S1, +S2 - GI/Abdominal Exam GI & Abdominal Exam: Soft, Normal Bowel Sounds - Extremities Exam Extremities Exam: Normal Inspection. absent: Calf Tenderness - Neurological Exam Neurological Exam: Alert, Awake, CN II-XII Intact, Oriented x3 - Psychiatric Exam Psychiatric exam: Normal Affect, Normal Mood - Skin Skin Exam: Dry, Intact, Normal Color, Warm Assessment and Plan - Assessment and Plan (Free Text) Assessment: 1. Transient Altered mental status - Head CT: no acute pathology - CTA head/neck: no stenosis- multinodular goiter - MRI/MRA brain are negative - neurology consulted, Dr. Luis Chance - passed bedside swallow eval- resume diet - PT eval - Continue ASA, Lipitor, Plavix - troponins x 3 negative 2) Fevers, unknown origin - CTA of chest negative for PE and pneumonia - Procalcitonin low, ESR and CRP elevated - No leukocytosis - Blood cultures negative and urine cultures negative - Cefepime and Doxycycline per ID - CT of the abdomen and pelvis with PO contrast showed gallstones and severe spinal stenosis - US of gallbladder shows cholelithiasis. No sonographic evidence of acute cholecystits. Hepatic steatosis - HIDA scan ordered given fever and rise in T. bili 3. DM - Carb consistent/HHD - NPH 10HS, Lispro 5AC - accucheck ACHS 4. LE Edema - secondary to unspecified HFpEF - Lasix 40 mg q12 w/ BP holding parameters - monitor I&O 5. HTN - Toprol and Lasix with BP holding parameters 6. HLD - Lipitor 7. DJD - Percocet prn pain - Hold fentanyl patch 8. Multinodular goiter - known history - will check thyroid panel - last thyroid US in 02/2018 - ENT consulted, Dr. Tavares/Noman - ENT recommends FNA to reduce size of multicystic goiter GI ppx: Protonix DVT ppx: Lovenox Case seen, discussed and reviewed with Dr. Cruz
[2018-10-09] MEDS: Latanoprost 2.5 ml Opht Soln OU SCH (22:05)
--- NOTE | 2018-10-09 22:29 | DS ---
FINAL PROGRESS NOTE AND DISCHARGE SUMMARY HISTORY OF PRESENT ILLNESS: The patient is accepted to TCU, pending an Infectious Disease clearance. The patient was seen sitting up in the bed. PHYSICAL EXAMINATION: VITAL SIGNS: T-max 99. Telemetry shows sinus rhythm, heart rate 71-82, blood pressure 131/78, 119/72, and 135/69, respirations 20, and O2 sat 96% on nasal cannula. INTAKE AND OUTPUT: Not correctly documented. HEENT: Head; normocephalic and atraumatic. HEENT examination shows pinkish pale conjunctivae. Anicteric sclerae. No oropharyngeal lesion. NECK: Short and supple. Positive thyromegaly noted. CHEST: Kyphosis. LUNGS: Shows positive rhonchi and creps right more than the left. CARDIOVASCULAR: S1 and S2, regular rhythm. Positive systolic murmur left sternal border, right second intercostal space, left second intercostal space. ABDOMEN: Obese. Positive bowel sounds. No palpable hepatosplenomegaly. GENITALIA: Female. RECTAL: Deferred. EXTREMITIES: Shows trace swelling of the lower extremity. MUSCULOSKELETAL: Shows a body mass index of 38.4. NEUROLOGIC: The patient is alert, awake, responsive, is able to move upper and lower extremity without assistance. DIAGNOSTIC DATA: On 10/09/2018; WBC 4.6, hemoglobin/hematocrit 10.8 and 35.2, and platelet 156. Sodium 137, potassium is 3.7, chloride 100, CO2 of 28, anion gap 13, BUN 16, creatinine 0.8, GFR greater than 60, and glucose 232. Fingerstick blood sugar 281, 189, 157, and 276. Calcium 8.3, magnesium 2.2, and total bili is 2. AST 42, ALT 48, and alk phos 120. C-reactive protein 142. Procalcitonin level is negative. TSH is 1.87 and T4 is 6.8. Urine drug screen is negative. Blood cultures and urine cultures from 10/06/2018 and 10/08/2018 are negative. The patient's chest x-ray, abdominal ultrasound, CAT scan of the abdomen, and MRI and MRA of the brain all reviewed. CMP reviewed. Chest x-ray shows peribronchial thickening bilaterally. Chest x-ray, abdominal ultrasound, CT chest, abdomen and pelvis all reviewed. FINAL IMPRESSION, PLAN, AND DISCHARGE DIAGNOSES: 1. High-grade fever of 103. 2. Questionable sepsis secondary to right-sided community-acquired pneumonia. 3. Elevated erythrocyte sedimentation rate of 62 and elevated C-reactive protein of greater than 140. 4. Hypertension. 5. Morbid obesity with elevated body mass index of 38. 6. Mild normocytic anemia. 7. Well-controlled insulin-requiring diabetes mellitus with hemoglobin A1c of 6.6. 8. Hyperbilirubinemia. 9. Elevated C-reactive protein of greater than 142. 10. Hyperbilirubinemia. 11. Microscopic hematuria and bacteriuria. 12. Peribronchial thickening. 13. Hepatic steatosis and fatty infiltration of the liver. 14. Cholelithiasis. 15. Hepatic steatosis. 16. Calcified cholelithiasis. 17. Pancreatic atrophy with pancreatic fatty infiltration. 18. Severe multilevel lumbar spine degenerative disk disease with lumbar spine spinal stenosis. 19. Morbid obesity with gait dysfunction. 20. Morbid obesity with elevated body mass index of 38.4. 21. Severe thyromegaly with subexternal extension and displacement of the trachea to the right and tracheal narrowing. 22. Sinus tachycardia. 23. Questionable code stroke in the emergency room. 24. Gait dysfunction. 25. Constipation. 26. Hypovitaminosis D. 27. Insulin-requiring diabetes mellitus. 28. Hyperlipidemia. 29. Hypomagnesemia. Plan at this time, the patient will be considered for discharge to TCU once cleared by Infectious Disease and once HIDA scan is negative. DISCHARGE MEDICATIONS: Ecotrin 81 mg daily, Colace 100 mg b.i.d., doxycycline 100 mg p.o. every 12 hours, Drisdol 50,000 units weekly, Humalog 5 units a.c., Humulin regular insulin high-dose sliding scale coverage, K-Dur 20 mEq three times a day, Lasix 40 mg IV every 12 hours, Lipitor 40 mg daily, Lovenox 40 mg subcutaneously daily, cefepime 1 g IV every 12 hours, MiraLax 17 g twice a day, Percocet 5/325 one tablet every 6 hours p.r.n., Plavix 75 mg daily, Protonix 40 mg daily, Singulair 10 mg at bedtime, Toprol-XL 100 mg daily, Tylenol 650 mg p.o. suppository every 6 hours p.r.n., Xalatan eyedrops, Xopenex nebulizer 0.63 mg every 6 hours, and Zofran 4 mg IV every 4 hours p.r.n. HIDA scan is ordered, results pending. Chest PT, incentive spirometry, oxygen 2 L, diabetic consistent carbohydrate diet, SCDs, DARRYN stockings, head of the bed at 30 degrees, intake and output, physical therapy, and occupational therapy all ordered. The patient is seen by the physical therapist, their recommendation is to continue physical therapy and Transitional Care Unit. The patient seen by the Transitional Care Unit evaluation. The patient accepted to Transitional Care Unit for rehab and [facility] services. The patient will be cleared for discharge to TCU once the patient's HIDA scan is negative and once cleared by Infectious Disease. Dictated and electronically signed, not read. Lucio Cruz MD
[2018-10-10] MEDS: Levalbuterol 1.25 MG/3 ML Inhal Soln UD IH SCH ×3 (01:33→14:09)
[2018-10-10] MEDS: Pantoprazole 40 mg EC Tab PO SCH (05:41)
[2018-10-10 06:27] VITALS: O2SAT 95
--- NOTE | 2018-10-10 07:24 | CP.PCM.PN ---
<Napoleon Tony - Last Filed: 10/10/18 15:16> Subjective - Date & Time of Evaluation Date of Evaluation: 10/10/18 Time of Evaluation: 09:30 - Subjective Subjective: Infectious disease progress note: Patient seen and examined at bedside. No acute events overnight. Pt still complains of cough. No chest pain. 12 point ROS performed and negative unless stated above. Objective - Vital Signs/Intake and Output Vital Signs (last 24 hours): Temp Pulse Resp BP Pulse Ox 97 F L 91 H 18 120/60 95 10/10/18 06:00 10/10/18 06:00 10/10/18 06:00 10/10/18 06:00 10/10/18 06:00 Intake and Output: 10/10/18 10/10/18 06:59 18:59 Intake Total 2000 Output Total 2 Balance 1997 - Medications Medications: Current Medications Acetaminophen (Tylenol 325mg Tab) 650 mg PO Q6H PRN PRN Reason: Fever >100.4 F Last Admin: 10/07/18 21:07 Dose: 650 mg Acetaminophen (Tylenol 325mg Tab) 650 mg PO Q6 PRN PRN Reason: TEMP>=99.5F Acetaminophen (Tylenol 650 Mg Supp) 650 mg RC Q6H PRN PRN Reason: TEMP>=99.5F Aspirin (Aspirin Chewable) 81 mg PO DAILY [facility] Last Admin: 10/09/18 10:54 Dose: 81 mg Atorvastatin Calcium (Lipitor) 40 mg PO DIN [facility] Last Admin: 10/09/18 17:34 Dose: 40 mg Clopidogrel Bisulfate (Plavix) 75 mg PO DAILY [facility] Last Admin: 10/09/18 10:54 Dose: 75 mg Dextrose (Dextrose 50% Inj) 0 ml IV STAT PRN; Protocol PRN Reason: Hypoglycemia Protocol Docusate Sodium (Colace) 100 mg PO BID [facility] Last Admin: 10/07/18 14:34 Dose: Not Given Doxycycline Hyclate (Doryx) 100 mg PO Q12 [facility] Last Admin: 10/09/18 22:04 Dose: 100 mg Enoxaparin Sodium (Lovenox) 40 mg SC DAILY [facility]; Protocol Last Admin: 10/09/18 10:55 Dose: 40 mg Ergocalciferol (Drisdol 50,000 Intl Units Cap) 1 cap PO Q7D [facility] Last Admin: 10/07/18 12:28 Dose: 1 cap Furosemide (Lasix) 40 mg IVP Q12 [facility] Last Admin: 10/09/18 22:09 Dose: 40 mg Dextrose (Dextrose 5% In Water 1000 Ml) 1,000 mls @ 0 mls/hr IV .Q0M PRN; Protocol PRN Reason: Hypoglycemia Protocol Cefepime HCl (Maxipime 1gm) 1 gm in 100 mls @ 100 mls/hr IVPB Q12 [facility]; Protocol Last Admin: 10/09/18 22:05 Dose: 100 mls/hr Insulin Human Lispro (Humalog) 5 units SC AC [facility] Last Admin: 10/09/18 16:40 Dose: Not Given Insulin Human Regular (Humulin R High) 0 units SC ACHS [facility]; Protocol Last Admin: 10/09/18 22:07 Dose: Not Given Latanoprost (Xalatan Opht) 0 ml OU HS [facility] Last Admin: 10/09/18 22:05 Dose: 2.5 ml Levalbuterol HCl (Xopenex) 0.63 mg IH [id number] [facility] Last Admin: 10/10/18 01:33 Dose: 0.63 mg Metoprolol Succinate (Toprol Xl) 100 mg PO BRK [facility] Last Admin: 10/09/18 08:45 Dose: 100 mg Montelukast Sodium (Singulair) 10 mg PO HS [facility] Last Admin: 10/09/18 22:04 Dose: 10 mg Ondansetron HCl (Zofran Inj) 4 mg IVP Q4H PRN PRN Reason: Nausea/Vomiting Pantoprazole Sodium (Protonix Ec Tab) 40 mg PO 0600 [facility] Last Admin: 10/10/18 05:41 Dose: 40 mg Polyethylene Glycol (Miralax) 17 gm PO BID [facility] Last Admin: 10/07/18 10:07 Dose: Not Given Potassium Chloride (K-Dur 20 Meq Er Tab) 20 meq PO TID [facility] Last Admin: 10/09/18 17:34 Dose: 20 meq - Labs Labs: 10/09/18 09:15 10/09/18 09:15 PT 13.8 SECONDS (9.4-12.5) H 10/06/18 19:45 INR 1.24 10/06/18 19:45 APTT 35.5 Seconds (26.9-38.3) 10/06/18 19:45 - Head Exam Head Exam: ATRAUMATIC, NORMOCEPHALIC - Eye Exam Eye Exam: EOMI - Respiratory Exam Respiratory Exam: Clear to Ausculation Bilateral. absent: Rales, Wheezes - Cardiovascular Exam Cardiovascular Exam: REGULAR RHYTHM, +S1, +S2 - GI/Abdominal Exam GI & Abdominal Exam: Soft. absent: Tenderness - Extremities Exam Extremities Exam: absent: Calf Tenderness, Pedal Edema - Neurological Exam Neurological Exam: Alert, Awake Assessment and Plan - Assessment and Plan (Free Text) Assessment: Sepsis likely secondary to community-acquired pneumonia Elevated ESR and CRP CHF Diabetes mellitus with neuropathy and retinopathy Coronary artery disease? Heart failure? Thyroid mass Continue Cefepime day 3 and Doxy day 3 F/u Hida scan to r/o cholecystitis - neg Follow-up septic work-up- Blood cultures thus far negative Procalcitonin negative Follow-up with neurology recs Continue to monitor for any changes Case and plan to be reviewed and discussed with Dr. Naylor <Andres Naylor - Last Filed: 10/10/18 21:32> Objective - Vital Signs/Intake and Output Vital Signs (last 24 hours): Temp Pulse Resp BP Pulse Ox 97.5 F L 80 20 129/67 95 10/10/18 12:00 10/10/18 12:00 10/10/18 12:00 10/10/18 12:00 10/10/18 06:00 Intake and Output: 10/10/18 10/11/18 18:59 06:59 Intake Total 100 Balance 100 - Labs Labs: 10/09/18 09:15 10/10/18 10:35 PT 13.8 SECONDS (9.4-12.5) H 10/06/18 19:45 INR 1.24 10/06/18 19:45 APTT 35.5 Seconds (26.9-38.3) 10/06/18 19:45 Attending/Attestation - Attestation I have personally seen and examined this patient.: Yes I have fully participated in the care of the patient.: Yes I have reviewed all pertinent clinical information, including history, physical exam and plan: Yes
[2018-10-10] MEDS: Insulin Lispro 1 UNITS/0.01 ML SC SCH ×2 (08:35→12:40)
[2018-10-10] MEDS: Insulin Reg-HIGH-Coverage SC SCH ×2 (08:35→12:40)
[2018-10-10] MEDS: Metoprolol Succinate 100 mg XL Tab PO SCH (08:55)
[2018-10-10] MEDS: Potassium Chloride 20 mEq ER Tab PO SCH ×2 (09:30→13:00)
[2018-10-10] MEDS: Enoxaparin 40 mg Syringe SC SCH (10:00)
--- NOTE | 2018-10-10 11:00 | NM ---
Date of service: 10/09/2018 PROCEDURE: Nuclear Medicine Hepatobiliary Scan HISTORY: fever inc bili COMPARISON: CT 10/08/2018 TECHNIQUE: 6.0 mCi of technetium 99m Mebrofenin was administered intravenously. Planar images of the abdomen were obtained at 5 min intervals to 60 mins. Delayed images were also obtained. FINDINGS: LIVER: Timely and homogenous uptake. COMMON BILE DUCT: identified at 15 mins. GALLBLADDER: identified at 30 mins. SMALL BOWEL: Identified at 45 mins. The report concurs with the preliminary [facility] report IMPRESSION: Normal Hepatobiliary Scan. The cystic duct is patent.
[2018-10-10 11:07] LABS: ALBUMIN 3.7 g/dL (3.0-4.8); ALT/SGPT 30 U/L (7-56); AST/SGOT 41 U/L (14-36); BLOOD UREA NITROGEN 20 mg/dL (7-21); CALCIUM 8.7 mg/dL (8.4-10.5); GFR NON-AFRICAN AMERICAN > 60
[2018-10-10 11:43] LABS: GLYCOMARK(R) 8.4 mcg/mL (7.5-28.4)
[2018-10-10] MEDS ORDERED: Magnesium Citrate Oral SOL (300 ml) PO ONE (12:48)
[2018-10-10] MEDS: Cefepime 1gm in NS 100ml 1 GM/100 ML BAG IVPB SCH (13:05)
[2018-10-10 13:19] VITALS: BP 129/67; PULSE 80; RESP 20; TEMP 97.5
--- NOTE | 2018-10-10 14:25 | DS ---
FINAL PROGRESS NOTE AND DISCHARGE SUMMARY HISTORY OF PRESENT ILLNESS: The patient is seen in room 271, bed 1. The patient is sitting up in the bed. PHYSICAL EXAMINATION: GENERAL: The patient is alert, awake, responsive, does not appear to be in any respiratory distress. Overnight nurse's notes were reviewed. VITAL SIGNS: T-max 97.8. Telemetry shows sinus rhythm; heart rate 80, 86, 91; blood pressure 120/60, 149/78; respirations 18; O2 sat 95-97%. HEENT: Head: Normocephalic, atraumatic. HEENT examination shows pinkish pale conjunctivae. Anicteric sclerae. No oropharyngeal lesion. NECK: No neck rigidity. CHEST: Kyphosis. LUNGS: Show positive rhonchi, right more than the left. CARDIOVASCULAR: S1, S2, regular rhythm. Questionable soft systolic murmur left sternal border, right second intercostal space, left second intercostal space. ABDOMEN: Soft, obese, protuberant, positive bowel sounds. GENITALIA: Female. RECTAL: Deferred. EXTREMITIES: Show almost complete resolution of the pitting edema of the lower extremity. MUSCULOSKELETAL: Shows a body mass index of 37. NEUROLOGIC: The patient is alert, awake, responsive, is able to move upper and lower extremities without assistance. Gait examination is not tested. DIAGNOSTICS: From 10/10/2018; sodium 136, potassium 4.3, chloride 100, CO2 of 28, anion gap 12, BUN 20, creatinine 0.7, GFR greater than 60, glucose 305. Fingerstick blood sugar 270, 244, 224, 259; calcium 8.7; total bili 1.4. AST 41. HIDA scan is negative for cystic duct obstruction. FINAL IMPRESSION PLAN AND DISCHARGE DIAGNOSES: 1. Sepsis probably secondary to right-sided community-acquired pneumonia and peribronchial thickening. 2. Hypertension. 3. Normocytic anemia. 4. Granulocytosis. 5. Elevated erythrocyte sedimentation rate of 62. 6. Hyperglycemia. 7. Type 1 diabetes mellitus with hemoglobin A1c of 6.6. 8. Hyperbilirubinemia. 9. Mild transaminitis. 10. Morbid obesity with elevated body mass index of 37. 11. Microscopic hematuria and bacteriuria. 12. Cholelithiasis. 13. Elevated C-reactive protein. 14. Hyperglycemia. 15. Constipation. 16. Hypovitaminosis D. 17. Insulin-requiring diabetes mellitus. 18. Unspecified congestive heart failure. 19. Hyperlipidemia. 20. Constipation. 21. Hypertension. Plan at this time, the patient has been approved for discharge to Transitional Care Unit. The patient will be discharged to TCU. CURRENT MEDICATIONS: Aspirin, Ecotrin 81 mg daily, magnesium citrate one bottle p.o. now, Colace 100 mg twice a day, doxycycline 100 mg p.o. every 12 hours, Drisdol 50,000 units weekly. The patient is started on Humalog Mix 75/25, 25 units a.c., breakfast and dinner and regular insulin sliding scale coverage, K-Dur 20 mEq 3 times a day, Lasix 40 mg IV every 12 hours, Lipitor 40 mg daily, Lovenox 40 mg subcutaneous daily, cefepime 1 g IV every 12 hours, MiraLax 17 g twice a day, Plavix 75 mg daily, Protonix 40 mg daily, Singulair 10 mg at bedtime, Toprol-XL 100 mg daily, Tylenol 650 mg p.o. suppository every 6 hours p.r.n., Xalatan eyedrops, Xopenex nebulizer 0.63 mg every 6 hours, Zofran 4 mg IV every 4 hours p.r.n. Chest PT, incentive spirometry, diabetic consistent carbohydrate diet, DARRYN stockings, SCDs, physical therapy, occupational therapy all ordered. The patient has been ordered to be discharged to TCU under Dr. Cruz's service. Time spent in the discharge process 45 minutes. Dictated and electronically signed, not read. Lucio Cruz MD
[2018-10-10] MEDS ORDERED: Insulin Lispro (humaLOG) MIX 75/25(10 ml) SC SCH (16:30)
[2018-10-10] MEDS ORDERED: Nystatin 100,000 Units/gm Topical Pow(15 gm) TOP SCH (18:00)
== END 2018-10-10 16:53 | DRG 871 ==
LOC: ED 18:51 → ERH 20:51 → 2RSO 23:10
PROVIDERS: ADMIT Internal Medicine; ATTEND Internal Medicine
DX: A41.9 Sepsis, unspecified organism (principal); J18.9 Pneumonia, unspecified organism; G45.9 Transient cerebral ischemic attack, unspecified; G93.40 Encephalopathy, unspecified; I50.32 Chronic diastolic (congestive) heart failure; I11.0 Hypertensive heart disease with heart failure; J20.9 Acute bronchitis, unspecified; E10.40 Type 1 diabetes mellitus with diabetic neuropathy, unspecified; E04.2 Nontoxic multinodular goiter; R47.81 Slurred speech; M47.9 Spondylosis, unspecified; R29.703 NIHSS score 3; D64.9 Anemia, unspecified; E55.9 Vitamin D deficiency, unspecified; E78.5 Hyperlipidemia, unspecified; E87.6 Hypokalemia; G89.4 Chronic pain syndrome; E10.319 Type 1 diabetes mellitus with unspecified diabetic retinopathy without macular edema; R47.1 Dysarthria and anarthria; I25.10 Atherosclerotic heart disease of native coronary artery without angina pectoris; H40.9 Unspecified glaucoma; M51.36 Other intervertebral disc degeneration, lumbar region; E10.65 Type 1 diabetes mellitus with hyperglycemia; I87.8 Other specified disorders of veins; K80.20 Calculus of gallbladder without cholecystitis without obstruction; R59.0 Localized enlarged lymph nodes; K59.00 Constipation, unspecified; E66.01 Morbid (severe) obesity due to excess calories; Z68.37 Body mass index [BMI] 37.0-37.9, adult; Z79.02 Long term (current) use of antithrombotics/antiplatelets; Z91.11 Patient's noncompliance with dietary regimen

== ENCOUNTER 2018-10-10 16:43 | Inpatient (IN) | payer MEDICARE ==
[2018-10-10 17:07] VITALS: BMI 36.6
[2018-10-10] MEDS ORDERED: Levalbuterol 0.63 MG/3 ML Inhal Soln UD IH PRN (17:17)
[2018-10-10] MEDS ORDERED: Dextrose 50% SYRINGE Inj (50 ml) IV PRN (17:29)
[2018-10-10] MEDS: POLYETHYLENE GLYCOL 3350 17 GM/Dose PACKET PO SCH (18:44)
[2018-10-10] MEDS: Potassium Chloride 20 mEq ER Tab PO SCH (18:44)
[2018-10-10] MEDS: Nystatin 100,000 Units/gm Topical Pow(15 gm) TOP SCH (18:45)
[2018-10-10] MEDS: Levalbuterol 0.63 MG/3 ML Inhal Soln UD IH SCH (21:06)
[2018-10-10] MEDS: Latanoprost 2.5 ml Opht Soln OU SCH (21:15)
[2018-10-10] MEDS ORDERED: Cefepime 1gm in NS 100ml 1 GM/100 ML BAG IVPB SCH (22:00)
[2018-10-10] MEDS: Insulin Reg-HIGH-Coverage SC SCH (22:23)
[2018-10-10] MEDS ORDERED: Pneumococcal 23-Valent Vaccine IM ONE (22:56)
[2018-10-11] MEDS: Levalbuterol 0.63 MG/3 ML Inhal Soln UD IH SCH ×4 (01:32→19:46)
[2018-10-11] MEDS: Pantoprazole 40 mg EC Tab PO SCH (05:37)
[2018-10-11] MEDS: Cefepime 1gm in NS 100ml 1 GM/100 ML BAG IVPB SCH ×2 (05:37→17:25)
[2018-10-11] MEDS: Enoxaparin 40 mg Syringe SC SCH (05:37)
[2018-10-11] MEDS: Insulin Lispro (humaLOG) MIX 75/25(10 ml) SC SCH ×2 (06:57→17:26)
[2018-10-11] MEDS: Insulin Reg-HIGH-Coverage SC SCH ×3 (06:59→17:27)
--- NOTE | 2018-10-11 07:53 | CP.PCM.HP ---
History of Present Illness - History of Present Illness History of Present Illness: 83 year old female with history of hypertension, hyperlipidemia, diabetes and DJD who was admitted to the acute medical floor with sepsis secondary to pneumonia. Patient was treated with IV antibiotics and seen by infectious disease specialist. She was also found to have a thyroid mass for which FNA is pending. She is now admitted to the [facility] for rehab for deconditioning. Present on Admission - Present on Admission Any Indicators Present on Admission: No History of DVT/PE: No History of Uncontrolled Diabetes: No Urinary Catheter: No Decubitus Ulcer Present: No Review of Systems - Constitutional Constitutional: absent: Chills, Fever - Cardiovascular Cardiovascular: absent: Chest Pain, Diaphoresis, Dyspnea - Gastrointestinal Gastrointestinal: absent: Abdominal Pain, Nausea, Vomiting Past Patient History - Infectious Disease Hx of Infectious Diseases: None - Past Social History Smoking Status: Never Smoked - CARDIAC Hx Cardiac Disorders: Yes Hx Hypercholesterolemia: Yes (HLD) Hx Hypertension: Yes - PULMONARY Hx Respiratory Disorders: Yes Hx Pneumonia: Yes - NEUROLOGICAL Hx Neurological Disorder: No - HEENT Hx HEENT Problems: Yes Hx Blind: Yes (right eye) Hx Cataracts: Yes (both eyes) Hx Glaucoma: Yes (right) - RENAL Hx Chronic Kidney Disease: No - ENDOCRINE/METABOLIC Hx Diabetes Mellitus Type 2: Yes - HEMATOLOGICAL/ONCOLOGICAL Hx Blood Disorders: No - INTEGUMENTARY Hx Dermatological Problems: No - MUSCULOSKELETAL/RHEUMATOLOGICAL Hx Falls: No - GASTROINTESTINAL Hx Gastrointestinal Disorders: Yes (CONSTIPATION,CHOLELITHIASIS) - GENITOURINARY/GYNECOLOGICAL Hx Genitourinary Disorders: Yes (URGENCY,FREQUENCY) Hx Reproductive Disorders: No - PSYCHIATRIC Hx Psychophysiologic Disorder: Yes - SURGICAL HISTORY Hx Surgeries: Yes (b/l cataract) Hx Cardiac Catheterization: Yes Hx Orthopedic Surgery: Yes - ANESTHESIA Hx Anesthesia Reactions: No Hx Malignant Hyperthermia: No Meds Allergies/Adverse Reactions: Allergies Allergy/AdvReac Type Severity Reaction Status Date / Time No Known Allergies Allergy Verified 10/10/18 18:08 Physical Exam - Constitutional Appears: No Acute Distress - Head Exam Head Exam: ATRAUMATIC, NORMOCEPHALIC - Cardiovascular Exam Cardiovascular Exam: +S1, +S2 - GI/Abdominal Exam GI & Abdominal Exam: Normal Bowel Sounds, Soft. absent: Tenderness - Neurological Exam Neurological exam: Alert, Oriented x3 Results - Vital Signs Recent Vital Signs: Last Vital Signs Temp 98.1 F 10/10/18 22:41 Pulse 75 10/10/18 22:41 Resp 18 10/10/18 22:41 BP 117/54 L 10/10/18 22:41 Pulse Ox - Labs Labs: Laboratory Results - last 24 hr 10/10/18 10/11/18 22:18 06:56 POC Glucose (mg/dL) 275 H 275 H Assessment & Plan - Assessment and Plan (Free Text) Assessment: Deconditioning Pneumonia CHF? Thyroid mass HTN HLP Diabetes DJD Plan: Patient will continue doxycycline and cefepime as per infectious disease for pneumonia. She will continue physical therapy for deconditioning. continue maintenance medications. Patient to have FNA as outpatient for thyroid mass.
[2018-10-11] MEDS: Metoprolol Succinate 100 mg XL Tab PO SCH (07:57)
[2018-10-11] MEDS: POLYETHYLENE GLYCOL 3350 17 GM/Dose PACKET PO SCH ×2 (09:26→17:05)
[2018-10-11] MEDS: Potassium Chloride 20 mEq ER Tab PO SCH ×2 (10:01→17:25)
[2018-10-11] MEDS: Nystatin 100,000 Units/gm Topical Pow(15 gm) TOP SCH ×2 (10:02→17:24)
--- NOTE | 2018-10-11 20:20 | CP.PCM.PN ---
<Jessica Cotto - Last Filed: 10/11/18 20:17> Subjective - Date & Time of Evaluation Date of Evaluation: 10/11/18 Time of Evaluation: 20:17 - Subjective Subjective: Angio cath insertion: Patient did not have IV access. Needs IV access for IV Cefepime. Nurse was at bedside. 20 gauge angiocath inserted in the L hand. No complications were noted. Case seen, discussed and reviewed with Dr. Polly Cotto PGY3 Objective - Vital Signs/Intake and Output Vital Signs (last 24 hours): Temp Pulse Resp BP Pulse Ox 98 F 78 20 150/64 97 10/11/18 16:00 10/11/18 16:00 10/11/18 16:00 10/11/18 16:00 10/11/18 16:00 - Medications Medications: Current Medications Acetaminophen (Tylenol 325mg Tab) 650 mg PO Q6H PRN PRN Reason: temp above 100.4 Acetaminophen (Tylenol 325mg Tab) 650 mg PO Q6H PRN PRN Reason: Headache Acetaminophen (Tylenol 650 Mg Supp) 650 mg RC Q6H PRN PRN Reason: temp above 99.5 Aspirin (Ecotrin) 81 mg PO 0800 [facility] Last Admin: 10/11/18 07:57 Dose: 81 mg Atorvastatin Calcium (Lipitor) 40 mg PO DIN [facility] Last Admin: 10/11/18 17:25 Dose: 40 mg Clopidogrel Bisulfate (Plavix) 75 mg PO DAILY [facility] Last Admin: 10/11/18 10:02 Dose: 75 mg Dextrose (Dextrose 50% Inj) 0 ml IV STAT PRN; Protocol PRN Reason: Hypoglycemia Protocol Docusate Sodium (Colace) 100 mg PO BID [facility] Last Admin: 10/11/18 17:02 Dose: Not Given Doxycycline Hyclate (Doryx) 100 mg PO Q12 [facility]; Protocol Last Admin: 10/11/18 10:01 Dose: 100 mg Enoxaparin Sodium (Lovenox) 40 mg SC 0600 [facility]; Protocol Last Admin: 10/11/18 05:37 Dose: 40 mg Ergocalciferol (Drisdol 50,000 Intl Units Cap) 1 cap PO Q7D [facility] Furosemide (Lasix) 40 mg IVP DAILY [facility] Last Admin: 10/11/18 10:01 Dose: 40 mg Dextrose (Dextrose 5% In Water 1000 Ml) 1,000 mls @ 0 mls/hr IV .Q0M PRN; Protocol PRN Reason: Hypoglycemia Protocol Cefepime HCl (Maxipime 1gm) 1 gm in 100 mls @ 100 mls/hr IVPB 0600,1800 [facility]; Protocol Last Admin: 10/11/18 17:25 Dose: 100 mls/hr Insulin Human Regular (Humulin R High) 0 units SC ACHS [facility]; Protocol Last Admin: 10/11/18 17:27 Dose: 10 units Insulin Lispro Protam/Lispro Human (Humalog Mix 75/25) 30 units SC ACBD [facility] Latanoprost (Xalatan Opht) 0 ml OU HS [facility] Last Admin: 10/10/18 21:15 Dose: 2.5 ml Levalbuterol HCl (Xopenex) 0.63 mg IH [id number] [facility] Last Admin: 10/11/18 19:46 Dose: 0.63 mg Metoprolol Succinate (Toprol Xl) 100 mg PO 0800 [facility] Last Admin: 10/11/18 07:57 Dose: 100 mg Montelukast Sodium (Singulair) 10 mg PO HS [facility] Last Admin: 10/10/18 21:15 Dose: 10 mg Nystatin (Nystop Topical Powder) 0 gm TOP BID [facility] Last Admin: 10/11/18 17:24 Dose: Not Given Ondansetron HCl (Zofran Inj) 4 mg IVP Q4H PRN PRN Reason: Nausea/Vomiting Pantoprazole Sodium (Protonix Ec Tab) 40 mg PO 0600 [facility] Last Admin: 10/11/18 05:37 Dose: 40 mg Polyethylene Glycol (Miralax) 17 gm PO BID [facility] Last Admin: 10/11/18 17:05 Dose: Not Given Potassium Chloride (K-Dur 20 Meq Er Tab) 20 meq PO BID [facility] Last Admin: 10/11/18 17:25 Dose: 20 meq - Constitutional Appears: No Acute Distress - Eye Exam Eye Exam: Normal appearance Pupil Exam: NORMAL ACCOMODATION - ENT Exam ENT Exam: Mucous Membranes Dry - Respiratory Exam Respiratory Exam: NORMAL BREATHING PATTERN. absent: Respiratory Distress - Neurological Exam Neurological Exam: Alert, Awake, CN II-XII Intact <MatiasPaolo domingo - Last Filed: 10/12/18 03:12> Objective - Vital Signs/Intake and Output Vital Signs (last 24 hours): Temp Pulse Resp BP Pulse Ox 98 F 78 20 150/64 97 10/11/18 16:00 10/11/18 16:00 10/11/18 16:00 10/11/18 16:00 10/11/18 16:00 - Medications Medications: Current Medications Acetaminophen (Tylenol 325mg Tab) 650 mg PO Q6H PRN PRN Reason: temp above 100.4 Acetaminophen (Tylenol 325mg Tab) 650 mg PO Q6H PRN PRN Reason: Headache Acetaminophen (Tylenol 650 Mg Supp) 650 mg RC Q6H PRN PRN Reason: temp above 99.5 Aspirin (Ecotrin) 81 mg PO 0800 [facility] Last Admin: 10/11/18 07:57 Dose: 81 mg Atorvastatin Calcium (Lipitor) 40 mg PO DIN [facility] Last Admin: 10/11/18 17:25 Dose: 40 mg Clopidogrel Bisulfate (Plavix) 75 mg PO DAILY [facility] Last Admin: 10/11/18 10:02 Dose: 75 mg Dextrose (Dextrose 50% Inj) 0 ml IV STAT PRN; Protocol PRN Reason: Hypoglycemia Protocol Docusate Sodium (Colace) 100 mg PO BID [facility] Last Admin: 10/11/18 17:02 Dose: Not Given Doxycycline Hyclate (Doryx) 100 mg PO Q12 [facility]; Protocol Last Admin: 10/11/18 21:26 Dose: 100 mg Enoxaparin Sodium (Lovenox) 40 mg SC 0600 [facility]; Protocol Last Admin: 10/11/18 05:37 Dose: 40 mg Ergocalciferol (Drisdol 50,000 Intl Units Cap) 1 cap PO Q7D [facility] Furosemide (Lasix) 40 mg IVP DAILY [facility] Last Admin: 10/11/18 10:01 Dose: 40 mg Dextrose (Dextrose 5% In Water 1000 Ml) 1,000 mls @ 0 mls/hr IV .Q0M PRN; Protocol PRN Reason: Hypoglycemia Protocol Cefepime HCl (Maxipime 1gm) 1 gm in 100 mls @ 100 mls/hr IVPB 0600,1800 [facility]; Protocol Last Admin: 10/11/18 17:25 Dose: 100 mls/hr Insulin Human Regular (Humulin R High) 0 units SC ACHS [facility]; Protocol Last Admin: 10/12/18 00:24 Dose: Not Given Insulin Lispro Protam/Lispro Human (Humalog Mix 75/25) 30 units SC ACBD [facility] Latanoprost (Xalatan Opht) 0 ml OU HS [facility] Last Admin: 10/11/18 21:26 Dose: 2.5 ml Levalbuterol HCl (Xopenex) 0.63 mg IH [id number] [facility] Last Admin: 10/11/18 19:46 Dose: 0.63 mg Metoprolol Succinate (Toprol Xl) 100 mg PO 0800 [facility] Last Admin: 10/11/18 07:57 Dose: 100 mg Montelukast Sodium (Singulair) 10 mg PO HS [facility] Last Admin: 10/11/18 21:26 Dose: 10 mg Nystatin (Nystop Topical Powder) 0 gm TOP BID [facility] Last Admin: 10/11/18 17:24 Dose: Not Given Ondansetron HCl (Zofran Inj) 4 mg IVP Q4H PRN PRN Reason: Nausea/Vomiting Pantoprazole Sodium (Protonix Ec Tab) 40 mg PO 0600 [facility] Last Admin: 10/11/18 05:37 Dose: 40 mg Polyethylene Glycol (Miralax) 17 gm PO BID [facility] Last Admin: 10/11/18 17:05 Dose: Not Given Potassium Chloride (K-Dur 20 Meq Er Tab) 20 meq PO BID [facility] Last Admin: 10/11/18 17:25 Dose: 20 meq Attending/Attestation - Attestation I have personally seen and examined this patient.: Yes I have fully participated in the care of the patient.: Yes I have reviewed all pertinent clinical information, including history, physical exam and plan: Yes
--- NOTE | 2018-10-11 20:45 | CON ---
DATE OF CONSULTATION: 10/11/2018 CHIEF COMPLAINT: Weakness times several days. HISTORY OF PRESENT ILLNESS: This is an 83-year-old female with past medical history significant for hypertension, coronary artery disease, cardiac catheterization, GERD, diabetes mellitus, right eye blindness, cataract, history of spinal stenosis, history of bilateral cataract surgery, history of degenerative joint disease, who is admitted to the acute care, was treated with antibiotics, with diagnosis of sepsis secondary to community-acquired pneumonia, on Maxipime and doxy, today is day #4, was transferred to Transitional Care for further treatment and infectious disease consultation is requested at this time. The patient has no fevers, no chills. PAST MEDICAL HISTORY: Significant for hypertension, hyperlipidemia, diabetic neuropathy, retinopathy, coronary artery disease, congestive heart failure, cataracts, spinal stenosis, degenerative joint disease, right eye blindness, hypertension, diabetes and coronary artery disease. PAST SURGICAL HISTORY: Significant for cardiac catheterization and bilateral cataract surgery. MEDICATIONS: Reviewed. ALLERGIES: THE PATIENT HAS NO KNOWN ALLERGIES. REVIEW OF SYSTEMS: A 12-point review of systems is performed. PHYSICAL EXAMINATION: VITAL SIGNS: The patient is in bed with a temperature of 98 and she did have a temperature of up to 100.6 in the acute care, respiratory rate of 18, and heart rate of 75. HEENT: Unremarkable. NECK: Supple. LUNGS: Decreased breath sounds. HEART: Normal S1, S2. ABDOMEN: Soft. LABORATORY EXAMINATION: White count of 4.6, hemoglobin of 10 and platelets of 156,000. BUN of 20, creatinine of 0.7. AST is 41, ALT is 30. The patient had a procalcitonin that was 0.15 that was on 10/07/2018. Microbiology reveals the blood cultures are negative. Urine cultures are negative. MRSA naris is negative and repeat cultures are also negative. ASSESSMENT AND PLAN: This is an 83-year-old female who was admitted with 1. Sepsis with community-acquired pneumonia, on Maxipime and doxycycline day #4, would complete 4-7 days of antibiotics and the patient did have a HIDA scan, concerned about gallbladder disease. The HIDA scan was reported as normal with a cystic duct that is patent. The patient's last chest x-ray on 10/08/2018 was read as no pneumonia; however, there was peribronchial thickening. The patient had a CAT scan of the chest on 10/06/2018, which is noted and reviewed. We will be discontinuing the antibiotics in the next 24-48 hours. Currently, review of orders reveals the patient is on p.o. doxycycline and IV cefepime. We will follow with you. Andres Naylor MD
[2018-10-11] MEDS: Latanoprost 2.5 ml Opht Soln OU SCH (21:26)
[2018-10-12] MEDS: Insulin Reg-HIGH-Coverage SC SCH ×5 (00:24→22:02)
[2018-10-12] MEDS: Pantoprazole 40 mg EC Tab PO SCH (05:14)
[2018-10-12] MEDS: Enoxaparin 40 mg Syringe SC SCH (05:14)
[2018-10-12] MEDS: Cefepime 1gm in NS 100ml 1 GM/100 ML BAG IVPB SCH ×2 (05:14→17:58)
[2018-10-12] MEDS: Insulin Lispro (humaLOG) MIX 75/25(10 ml) SC SCH ×2 (06:47→17:56)
[2018-10-12] MEDS: Levalbuterol 0.63 MG/3 ML Inhal Soln UD IH SCH ×4 (07:30→19:37)
--- NOTE | 2018-10-12 08:06 | CP.PCM.PN ---
Subjective - Date & Time of Evaluation Date of Evaluation: 10/12/18 Time of Evaluation: 07:30 - Subjective Subjective: (covering for Dr. Cruz) Patient is seen this morning in room 321 bed 1. She is sitting up in the chair getting her breathing treatment. She has no new complaints. Objective - Vital Signs/Intake and Output Vital Signs (last 24 hours): Temp Pulse Resp BP Pulse Ox 98 F 78 20 150/64 97 10/11/18 16:00 10/11/18 16:00 10/11/18 16:00 10/11/18 16:00 10/11/18 16:00 - Medications Medications: Current Medications Acetaminophen (Tylenol 325mg Tab) 650 mg PO Q6H PRN PRN Reason: temp above 100.4 Acetaminophen (Tylenol 325mg Tab) 650 mg PO Q6H PRN PRN Reason: Headache Acetaminophen (Tylenol 650 Mg Supp) 650 mg RC Q6H PRN PRN Reason: temp above 99.5 Aspirin (Ecotrin) 81 mg PO 0800 [facility] Last Admin: 10/11/18 07:57 Dose: 81 mg Atorvastatin Calcium (Lipitor) 40 mg PO DIN [facility] Last Admin: 10/11/18 17:25 Dose: 40 mg Clopidogrel Bisulfate (Plavix) 75 mg PO DAILY [facility] Last Admin: 10/11/18 10:02 Dose: 75 mg Dextrose (Dextrose 50% Inj) 0 ml IV STAT PRN; Protocol PRN Reason: Hypoglycemia Protocol Docusate Sodium (Colace) 100 mg PO BID [facility] Last Admin: 10/11/18 17:02 Dose: Not Given Doxycycline Hyclate (Doryx) 100 mg PO Q12 [facility]; Protocol Last Admin: 10/11/18 21:26 Dose: 100 mg Enoxaparin Sodium (Lovenox) 40 mg SC 0600 [facility]; Protocol Last Admin: 10/12/18 05:14 Dose: 40 mg Ergocalciferol (Drisdol 50,000 Intl Units Cap) 1 cap PO Q7D [facility] Furosemide (Lasix) 40 mg IVP DAILY [facility] Last Admin: 10/11/18 10:01 Dose: 40 mg Dextrose (Dextrose 5% In Water 1000 Ml) 1,000 mls @ 0 mls/hr IV .Q0M PRN; Protocol PRN Reason: Hypoglycemia Protocol Cefepime HCl (Maxipime 1gm) 1 gm in 100 mls @ 100 mls/hr IVPB 0600,1800 [facility]; Protocol Last Admin: 10/12/18 05:14 Dose: 100 mls/hr Insulin Human Regular (Humulin R High) 0 units SC ACHS [facility]; Protocol Last Admin: 10/12/18 06:46 Dose: 2 units Insulin Lispro Protam/Lispro Human (Humalog Mix 75/25) 30 units SC ACBD [facility] Last Admin: 10/12/18 06:47 Dose: Not Given Latanoprost (Xalatan Opht) 0 ml OU HS [facility] Last Admin: 10/11/18 21:26 Dose: 2.5 ml Levalbuterol HCl (Xopenex) 0.63 mg IH [id number] [facility] Last Admin: 10/12/18 07:31 Dose: 0.63 mg Metoprolol Succinate (Toprol Xl) 100 mg PO 0800 [facility] Last Admin: 10/11/18 07:57 Dose: 100 mg Montelukast Sodium (Singulair) 10 mg PO HS [facility] Last Admin: 10/11/18 21:26 Dose: 10 mg Nystatin (Nystop Topical Powder) 0 gm TOP BID [facility] Last Admin: 10/11/18 17:24 Dose: Not Given Ondansetron HCl (Zofran Inj) 4 mg IVP Q4H PRN PRN Reason: Nausea/Vomiting Pantoprazole Sodium (Protonix Ec Tab) 40 mg PO 0600 [facility] Last Admin: 10/12/18 05:14 Dose: 40 mg Polyethylene Glycol (Miralax) 17 gm PO BID [facility] Last Admin: 10/11/18 17:05 Dose: Not Given Potassium Chloride (K-Dur 20 Meq Er Tab) 20 meq PO BID [facility] Last Admin: 10/11/18 17:25 Dose: 20 meq - Constitutional Appears: No Acute Distress - Head Exam Head Exam: ATRAUMATIC, NORMOCEPHALIC - Respiratory Exam Respiratory Exam: Clear to Ausculation Bilateral, NORMAL BREATHING PATTERN - Cardiovascular Exam Cardiovascular Exam: +S1, +S2 - GI/Abdominal Exam GI & Abdominal Exam: Soft, Normal Bowel Sounds. absent: Tenderness - Neurological Exam Neurological Exam: Alert, Awake, Oriented x3 Assessment and Plan - Assessment and Plan (Free Text) Assessment: Deconditioning Pneumonia Thyroid mass HTN Diabetes DJD Plan: Patient is on IV cefepime and oral doxycycline as per infectious disease for pneumonia. continue respiratory treatments. continue insulin for diabetes. continue physical therapy.
[2018-10-12] MEDS: Metoprolol Succinate 100 mg XL Tab PO SCH (08:27)
[2018-10-12] MEDS: Potassium Chloride 20 mEq ER Tab PO SCH ×2 (10:33→17:58)
[2018-10-12] MEDS: POLYETHYLENE GLYCOL 3350 17 GM/Dose PACKET PO SCH ×2 (10:34→17:59)
[2018-10-12] MEDS: Nystatin 100,000 Units/gm Topical Pow(15 gm) TOP SCH ×2 (10:34→17:58)
--- NOTE | 2018-10-12 15:35 | PN ---
DATE: 10/12/2018 SUBJECTIVE: The patient seen in 321. The patient has no fevers and no chills. Doing well. PHYSICAL EXAMINATION: VITAL SIGNS: On exam, temperature is 98, blood pressure is 125/70, respiratory rate of 18. HEENT: Examination of HEENT is unremarkable. NECK: Supple. LUNGS: Have decreased breath sounds. HEART: Normal S1, S2. ABDOMEN: Soft. LABORATORY DATA: Laboratory examination is noted. Review of orders reveals the patient to be on p.o. doxycycline and cefepime. ASSESSMENT AND PLAN: A 83-year-old female who was seen earlier today in room 321, who is admitted to acute care with sepsis with community-acquired pneumonia, on Maxipime and doxycycline, day #5, would complete 4-7 days of antibiotics. The patient did have a HIDA scan which was negative and chest x-ray on 10/08/2018, no pneumonia was apparent, peribronchial thickening and today is day #5. We will discontinue cefepime within the next 24 hours and we will follow with you. Currently on day #5 of cefepime and doxycycline. Andres Naylor MD
[2018-10-12] MEDS: Latanoprost 2.5 ml Opht Soln OU SCH (21:17)
[2018-10-13] MEDS: Levalbuterol 0.63 MG/3 ML Inhal Soln UD IH SCH ×4 (04:00→19:55)
[2018-10-13] MEDS: Enoxaparin 40 mg Syringe SC SCH (05:08)
[2018-10-13] MEDS: Cefepime 1gm in NS 100ml 1 GM/100 ML BAG IVPB SCH ×2 (05:08→17:31)
[2018-10-13] MEDS: Pantoprazole 40 mg EC Tab PO SCH (05:08)
[2018-10-13] MEDS: Insulin Reg-HIGH-Coverage SC SCH ×4 (07:39→23:32)
[2018-10-13] MEDS: Insulin Lispro (humaLOG) MIX 75/25(10 ml) SC SCH ×2 (07:39→17:31)
[2018-10-13 07:45] VITALS: RESP 18
[2018-10-13 07:54] LABS: BASO # 0.01 K/mm3 (0.0-2.0); BASO % 0.2 % (0.0-3.0); EOS # 0.2 (0.0-0.7); EOS % 4.4 % (1.5-5.0); HEMOGLOBIN 10.5 g/dL (12.0-16.0); LYMPH # 1.5 (1.2-3.4); LYMPH % 33.3 % (22.0-35.0); MEAN CELL VOLUME 87.2 fl (80.0-105.0); MEAN CORPUSCULAR HEMOGLOBIN 26.9 pg (25.0-35.0); MEAN CORPUSCULAR HGB CONC 30.9 g/dl (31.0-37.0); MEAN PLATELET VOLUME 11.2 fl (7.0-11.0); MONO # 0.5 (0.1-0.6); MONO % 10.1 % (1.0-6.0); RBC 3.9 10^6/uL (3.5-6.1); RED CELL DISTRIBUTION WIDTH 13.9 % (11.5-14.5); WHITE BLOOD COUNT 4.5 10^3/uL (4.5-11.0)
--- NOTE | 2018-10-13 07:58 | CP.PCM.PN ---
Subjective - Date & Time of Evaluation Date of Evaluation: 10/13/18 Time of Evaluation: 07:30 - Subjective Subjective: (covering for Dr. Cruz) Patient is seen this morning. She is complaining of sciatic pain down her right leg and back. Objective - Vital Signs/Intake and Output Vital Signs (last 24 hours): Temp Pulse Resp BP Pulse Ox 98.1 F 74 18 128/66 95 10/13/18 06:00 10/13/18 06:00 10/13/18 06:00 10/13/18 06:00 10/13/18 06:00 - Medications Medications: Current Medications Acetaminophen (Tylenol 325mg Tab) 650 mg PO Q6H PRN PRN Reason: temp above 100.4 Acetaminophen (Tylenol 325mg Tab) 650 mg PO Q6H PRN PRN Reason: Headache Acetaminophen (Tylenol 650 Mg Supp) 650 mg RC Q6H PRN PRN Reason: temp above 99.5 Aspirin (Ecotrin) 81 mg PO 0800 [facility] Last Admin: 10/12/18 08:27 Dose: 81 mg Atorvastatin Calcium (Lipitor) 40 mg PO DIN [facility] Last Admin: 10/12/18 17:57 Dose: 40 mg Clopidogrel Bisulfate (Plavix) 75 mg PO DAILY [facility] Last Admin: 10/12/18 10:35 Dose: 75 mg Dextrose (Dextrose 50% Inj) 0 ml IV STAT PRN; Protocol PRN Reason: Hypoglycemia Protocol Docusate Sodium (Colace) 100 mg PO BID [facility] Last Admin: 10/12/18 17:58 Dose: 100 mg Doxycycline Hyclate (Doryx) 100 mg PO Q12 [facility]; Protocol Last Admin: 10/12/18 21:16 Dose: 100 mg Enoxaparin Sodium (Lovenox) 40 mg SC 0600 [facility]; Protocol Last Admin: 10/13/18 05:08 Dose: 40 mg Ergocalciferol (Drisdol 50,000 Intl Units Cap) 1 cap PO Q7D [facility] Furosemide (Lasix) 40 mg IVP DAILY [facility] Last Admin: 10/12/18 10:37 Dose: 40 mg Dextrose (Dextrose 5% In Water 1000 Ml) 1,000 mls @ 0 mls/hr IV .Q0M PRN; Protocol PRN Reason: Hypoglycemia Protocol Cefepime HCl (Maxipime 1gm) 1 gm in 100 mls @ 100 mls/hr IVPB 0600,1800 [facility]; Protocol Last Admin: 10/13/18 05:08 Dose: 100 mls/hr Insulin Human Regular (Humulin R High) 0 units SC ACHS [facility]; Protocol Last Admin: 10/13/18 07:39 Dose: Not Given Insulin Lispro Protam/Lispro Human (Humalog Mix 75/25) 30 units SC ACBD [facility] Last Admin: 10/13/18 07:39 Dose: Not Given Latanoprost (Xalatan Opht) 0 ml OU HS [facility] Last Admin: 10/12/18 21:17 Dose: 2.5 ml Levalbuterol HCl (Xopenex) 0.63 mg IH [id number] [facility] Last Admin: 10/13/18 07:18 Dose: 0.63 mg Lidocaine (Lidoderm) 1 ea TD DAILY [facility] Metoprolol Succinate (Toprol Xl) 100 mg PO 0800 [facility] Last Admin: 10/12/18 08:27 Dose: 100 mg Montelukast Sodium (Singulair) 10 mg PO HS [facility] Last Admin: 10/12/18 21:16 Dose: 10 mg Nystatin (Nystop Topical Powder) 0 gm TOP BID [facility] Last Admin: 10/12/18 17:58 Dose: Not Given Ondansetron HCl (Zofran Inj) 4 mg IVP Q4H PRN PRN Reason: Nausea/Vomiting Pantoprazole Sodium (Protonix Ec Tab) 40 mg PO 0600 [facility] Last Admin: 10/13/18 05:08 Dose: 40 mg Polyethylene Glycol (Miralax) 17 gm PO BID [facility] Last Admin: 10/12/18 17:59 Dose: 17 gm Potassium Chloride (K-Dur 20 Meq Er Tab) 20 meq PO BID [facility] Last Admin: 10/12/18 17:58 Dose: 20 meq - Constitutional Appears: No Acute Distress - Head Exam Head Exam: ATRAUMATIC, NORMOCEPHALIC - Respiratory Exam Respiratory Exam: Clear to Ausculation Bilateral, NORMAL BREATHING PATTERN - Cardiovascular Exam Cardiovascular Exam: +S1, +S2 - GI/Abdominal Exam GI & Abdominal Exam: Soft. absent: Tenderness - Neurological Exam Neurological Exam: Alert, Awake, Oriented x3 Assessment and Plan - Assessment and Plan (Free Text) Assessment: Sciatica Deconditioning Pneumonia HTN Diabetes Plan: continue Tylenol as needed for pain. Will add Lidoderm patch for pain. continue antibiotics as per infectious disease continue PT
[2018-10-13 08:08] LABS: ALB/GLOB RATIO 0.9 (1.1-1.8); ALBUMIN 3.5 g/dL (3.0-4.8); ALT/SGPT 30 U/L (7-56); AST/SGOT 39 U/L (14-36); BILIRUBIN,DIRECT 0.2 mg/dL (0.0-0.4); BLOOD UREA NITROGEN 23 mg/dL (7-21); CALCIUM 9.2 mg/dL (8.4-10.5); GFR NON-AFRICAN AMERICAN > 60; URIC ACID 6.5 mg/dL (2.5-6.2)
[2018-10-13] MEDS: Metoprolol Succinate 100 mg XL Tab PO SCH (08:25)
[2018-10-13] MEDS: POLYETHYLENE GLYCOL 3350 17 GM/Dose PACKET PO SCH ×3 (10:19→18:17)
[2018-10-13] MEDS: Potassium Chloride 20 mEq ER Tab PO SCH ×2 (10:20→17:32)
[2018-10-13] MEDS: Nystatin 100,000 Units/gm Topical Pow(15 gm) TOP SCH ×2 (10:20→17:33)
[2018-10-13] MEDS: Lidocaine 5% Patch TD SCH (10:21)
--- NOTE | 2018-10-13 12:34 | PN ---
DATE: 10/13/2018 SUBJECTIVE: The patient is in bed, in no acute distress, nontoxic. PHYSICAL EXAMINATION: VITAL SIGNS: Temperature 98, blood pressure is 125/70, respiratory rate of 18. HEENT: Unremarkable. NECK: Supple. LUNGS: Have decreased breath sounds. HEART: Normal S1, S2. ABDOMEN: Soft. LABORATORY DATA: Laboratory examination noted. ASSESSMENT AND PLAN: This is an 83-year-old female who was seen earlier today in room 321, admitted with sepsis with community-acquired pneumonia on Maxipime and doxycycline day #6. We will discontinue the antibiotics after 7 days of therapy. The patient did have a HIDA scan which was negative. Repeat chest x-ray is negative. Four to seven days of treatment is recommended.. Currently on p.o. doxycycline and IV cefepime day #6 of 7 days. Andres Naylor MD
[2018-10-13] MEDS: Latanoprost 2.5 ml Opht Soln OU SCH (21:05)
[2018-10-14] MEDS: Levalbuterol 0.63 MG/3 ML Inhal Soln UD IH SCH ×4 (01:16→19:35)
[2018-10-14] MEDS: Pantoprazole 40 mg EC Tab PO SCH (05:19)
[2018-10-14] MEDS: Cefepime 1gm in NS 100ml 1 GM/100 ML BAG IVPB SCH ×2 (05:19→17:38)
[2018-10-14] MEDS: Enoxaparin 40 mg Syringe SC SCH (05:19)
[2018-10-14] MEDS: Insulin Lispro (humaLOG) MIX 75/25(10 ml) SC SCH ×2 (06:44→17:35)
[2018-10-14] MEDS: Insulin Reg-HIGH-Coverage SC SCH ×4 (06:44→22:19)
--- NOTE | 2018-10-14 06:45 | CP.PCM.PN ---
Subjective - Date & Time of Evaluation Date of Evaluation: 10/14/18 Time of Evaluation: 06:45 - Subjective Subjective: Donna Delgado DO, PGY-2: Progress Note for Dr. Cruz Patient was seen and examined at bedside. Patient reports having a weekend and participating in Physical Therapy twice a day. She denies any chest pain, shortness of breath, leg swelling, or cough. Interim weekend events noted, no adverse events. Objective - Vital Signs/Intake and Output Vital Signs (last 24 hours): Temp Pulse Resp BP Pulse Ox 97.9 F 97 H 18 123/74 91 L 10/13/18 16:00 10/13/18 16:00 10/13/18 16:00 10/13/18 16:00 10/13/18 16:00 - Medications Medications: Current Medications Acetaminophen (Tylenol 325mg Tab) 650 mg PO Q6H PRN PRN Reason: temp above 100.4 Acetaminophen (Tylenol 325mg Tab) 650 mg PO Q6H PRN PRN Reason: Headache Acetaminophen (Tylenol 650 Mg Supp) 650 mg RC Q6H PRN PRN Reason: temp above 99.5 Aspirin (Ecotrin) 81 mg PO 0800 [facility] Last Admin: 10/13/18 08:25 Dose: 81 mg Atorvastatin Calcium (Lipitor) 40 mg PO DIN [facility] Last Admin: 10/13/18 17:32 Dose: 40 mg Clopidogrel Bisulfate (Plavix) 75 mg PO DAILY [facility] Last Admin: 10/13/18 10:20 Dose: 75 mg Dextrose (Dextrose 50% Inj) 0 ml IV STAT PRN; Protocol PRN Reason: Hypoglycemia Protocol Docusate Sodium (Colace) 100 mg PO BID [facility] Last Admin: 10/13/18 17:32 Dose: 100 mg Doxycycline Hyclate (Doryx) 100 mg PO Q12 [facility]; Protocol Last Admin: 10/13/18 21:05 Dose: 100 mg Enoxaparin Sodium (Lovenox) 40 mg SC 0600 [facility]; Protocol Last Admin: 10/14/18 05:19 Dose: 40 mg Ergocalciferol (Drisdol 50,000 Intl Units Cap) 1 cap PO Q7D [facility] Furosemide (Lasix) 40 mg IVP DAILY [facility] Last Admin: 10/13/18 10:17 Dose: 40 mg Dextrose (Dextrose 5% In Water 1000 Ml) 1,000 mls @ 0 mls/hr IV .Q0M PRN; Protocol PRN Reason: Hypoglycemia Protocol Cefepime HCl (Maxipime 1gm) 1 gm in 100 mls @ 100 mls/hr IVPB 0600,1800 [facility]; Protocol Last Admin: 10/14/18 05:19 Dose: 100 mls/hr Insulin Human Regular (Humulin R High) 0 units SC ACHS [facility]; Protocol Last Admin: 10/14/18 06:44 Dose: 2 units Insulin Lispro Protam/Lispro Human (Humalog Mix 75/25) 30 units SC [facility] Last Admin: 10/14/18 06:44 Dose: 30 unit Latanoprost (Xalatan Opht) 0 ml OU HS [facility] Last Admin: 10/13/18 21:05 Dose: 2.5 ml Levalbuterol HCl (Xopenex) 0.63 mg IH [id number] [facility] Last Admin: 10/14/18 01:16 Dose: Not Given Lidocaine (Lidoderm) 1 ea TD DAILY [facility] Last Admin: 10/13/18 10:21 Dose: 1 ea Metoprolol Succinate (Toprol Xl) 100 mg PO 0800 [facility] Last Admin: 10/13/18 08:25 Dose: 100 mg Montelukast Sodium (Singulair) 10 mg PO HS [facility] Last Admin: 10/13/18 21:06 Dose: 10 mg Nystatin (Nystop Topical Powder) 0 gm TOP BID [facility] Last Admin: 10/13/18 17:33 Dose: 1 applic Ondansetron HCl (Zofran Inj) 4 mg IVP Q4H PRN PRN Reason: Nausea/Vomiting Pantoprazole Sodium (Protonix Ec Tab) 40 mg PO 0600 [facility] Last Admin: 10/14/18 05:19 Dose: 40 mg Polyethylene Glycol (Miralax) 17 gm PO BID [facility] Last Admin: 10/13/18 18:17 Dose: Not Given Potassium Chloride (K-Dur 20 Meq Er Tab) 20 meq PO BID [facility] Last Admin: 10/13/18 17:32 Dose: 20 meq - Labs Labs: 10/13/18 07:30 10/13/18 07:30 - Constitutional Appears: Well, Non-toxic - Head Exam Head Exam: ATRAUMATIC, NORMOCEPHALIC - Eye Exam Eye Exam: EOMI, Normal appearance - ENT Exam ENT Exam: Mucous Membranes Moist - Neck Exam Neck Exam: Normal Inspection - Respiratory Exam Respiratory Exam: Rales (mild), NORMAL BREATHING PATTERN. absent: Accessory Muscle Use - Cardiovascular Exam Cardiovascular Exam: RRR, +S1, +S2 - GI/Abdominal Exam GI & Abdominal Exam: Soft, Normal Bowel Sounds - Neurological Exam Neurological Exam: Alert, Awake, Oriented x3 - Psychiatric Exam Psychiatric exam: Normal Affect, Normal Mood - Skin Skin Exam: Dry, Intact, Normal Color, Warm Assessment and Plan - Assessment and Plan (Free Text) Assessment: 1. Transient Altered mental status - Head CT: no acute pathology - CTA head/neck: no stenosis- multinodular goiter - MRI/MRA brain are negative - neurology consulted, Dr. Luis Chance - passed bedside swallow eval- resume diet - PT eval - Continue ASA, Lipitor, Plavix - troponins x 3 negative 2) Fevers, unknown origin; resolved - CTA of chest negative for PE and pneumonia - Procalcitonin low, ESR and CRP elevated - No leukocytosis - Blood cultures negative and urine cultures negative - Cefepime and Doxycycline per ID (Cefepime day 7 out of 7) - CT of the abdomen and pelvis with PO contrast showed gallstones and severe spinal stenosis - US of gallbladder shows cholelithiasis. No sonographic evidence of acute cholecystits. Hepatic steatosis - HIDA scan negative 3. DM - Carb consistent/HHD - NPH 10HS, Lispro 5AC - accucheck ACHS 4. LE Edema - secondary to unspecified HFpEF - Lasix 40 mg Daily w/ BP holding parameters - monitor I&O 5. HTN - Toprol and Lasix with BP holding parameters 6. HLD - Lipitor 7. DJD - Percocet prn pain - Hold fentanyl patch 8. Multinodular goiter - known history - will check thyroid panel - last thyroid US in 02/2018 - ENT consulted, Dr. Tvaares/Noman - ENT recommends FNA to reduce size of multicystic goiter 9) Deconditioning - PT twice a day in TCU GI ppx: Protonix DVT ppx: Lovenox Case seen, discussed and reviewed with Dr. Cruz
[2018-10-14] MEDS: Potassium Chloride 20 mEq ER Tab PO SCH ×3 (07:54→17:37)
[2018-10-14] MEDS: Metoprolol Succinate 100 mg XL Tab PO SCH (07:55)
[2018-10-14] MEDS ORDERED: Ergocalciferol 50,000 Intl Units Cap PO SCH (10:00)
[2018-10-14] MEDS: POLYETHYLENE GLYCOL 3350 17 GM/Dose PACKET PO SCH ×2 (10:24→17:38)
[2018-10-14] MEDS: Lidocaine 5% Patch TD SCH (10:25)
[2018-10-14] MEDS: Nystatin 100,000 Units/gm Topical Pow(15 gm) TOP SCH ×2 (10:26→17:39)
--- NOTE | 2018-10-14 16:46 | PN ---
DATE: 10/14/2018 SUBJECTIVE: The patient is in bed, in no acute distress. PHYSICAL EXAMINATION: VITAL SIGNS: On exam, temperature is 98, blood pressure is 120/70, respiratory rate of 18. HEENT: Examination of HEENT is unremarkable. NECK: Supple. LUNGS: Have decreased breath sounds. . LABORATORY DATA: Laboratory examination reveals a white count of 4.5, hemoglobin of 10, platelets of 216, BUN of 23, creatinine of 0.8. Microbiology is noted. ASSESSMENT AND PLAN: An 83-year-old female who was seen earlier today in [facility], admitted with sepsis, community-acquired pneumonia on Maxipime and doxycycline day #7 antibiotics and HIDA scan negative.. We will discontinue the antibiotics after today's dose, last dose day #7 Andres Naylor MD
[2018-10-14 17:07] VITALS: TEMP 98.5; O2SAT 96
[2018-10-14] MEDS: Latanoprost 2.5 ml Opht Soln OU SCH (22:22)
[2018-10-15] MEDS: Levalbuterol 0.63 MG/3 ML Inhal Soln UD IH SCH ×3 (01:55→13:24)
[2018-10-15] MEDS: Cefepime 1gm in NS 100ml 1 GM/100 ML BAG IVPB SCH (05:40)
[2018-10-15] MEDS: Enoxaparin 40 mg Syringe SC SCH (05:41)
[2018-10-15] MEDS: Pantoprazole 40 mg EC Tab PO SCH (05:50)
[2018-10-15] MEDS: Insulin Reg-HIGH-Coverage SC SCH ×2 (06:57→12:13)
[2018-10-15] MEDS: Insulin Lispro (humaLOG) MIX 75/25(10 ml) SC SCH (07:50)
[2018-10-15] MEDS: Potassium Chloride 20 mEq ER Tab PO SCH (07:50)
[2018-10-15] MEDS: Metoprolol Succinate 100 mg XL Tab PO SCH (07:51)
[2018-10-15 07:53] VITALS: BP 120/73; PULSE 84
--- NOTE | 2018-10-15 08:15 | PN ---
DATE: 10/14/2018 LOCATION: The patient is in room 321, bed 1. SUBJECTIVE: The patient is seen lying in the bed. The patient states that her breathing is much better. The patient denies any nausea, vomiting, diarrhea or constipation. Overnight nurse's notes were reviewed. PHYSICAL EXAMINATION: VITAL SIGNS: T-max is 97.9, heart rate 80, blood pressure 123/74, 137/70, 123/74, 117/50; respirations 18, O2 sat 91-97%. HEENT: Head examination normocephalic, atraumatic. HEENT examination shows pinkish pale conjunctivae. Anicteric sclerae. No oropharyngeal lesion. NECK: No neck rigidity. CHEST: Kyphosis. LUNGS: Shows positive creps, crackles and rhonchi, left more than the right posterior lung field. CARDIOVASCULAR: S1, S2, regular rhythm. Questionable soft systolic murmur at the left sternal border, right second intercostal space, left second intercostal space. ABDOMEN: Morbidly obese, positive bowel sounds. GENITALIA: Female. RECTAL: Deferred. MUSCULOSKELETAL: Shows elevated body mass index of 37. NEUROLOGIC: The patient is alert, awake, responsive. He is able to move upper and lower extremity without assistance. The patient is able to sit without assistance from a lying down position. DIAGNOSTICS: WBC 4.5, hemoglobin and hematocrit 10.5 and 34, platelet 216. Sodium 137, potassium 4.6, chloride 101, CO2 30, anion gap 10, BUN 23, creatinine 0.8, GFR greater than 60, glucose 134, uric acid 6.5, calcium 9.2, phosphorus 3.9, magnesium 2.1. AST 39. The patient's fingerstick blood sugar 179, 175, 161, 175, 251, 134. IMPRESSION: 1. Deconditioning. 2. Gait dysfunction. 3. Morbid obesity with elevated body mass index of 38.4. 4. Sepsis probably secondary to right-sided community-acquired pneumonia. 5. Unspecified congestive heart failure. 6. Volume overload. 7. Uncontrolled hypertension. 8. Mild normocytic anemia. 9. Granulocytosis. 10. Elevated erythrocyte sedimentation rate of 62. 11. Hyperglycemia. 12. Type 1 insulin-requiring diabetes mellitus with hemoglobin A1c of 6.6. 13. Hyperbilirubinemia. 14. Transaminitis. 15. Cholelithiasis. 16. Microscopic hematuria, bacteriuria. 17. Elevated C-reactive protein. 18. Constipation. 19. Hypovitaminosis D. 20. Hyperlipidemia. 21. Hypertension. 22. Hypercholesterolemia. 23. 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 24. Status post high-grade fever of 103 degrees Fahrenheit. 25. Elevated C-reactive protein of greater than 140. 26. Peribronchial thickening. 27. Hepatic steatosis with fatty infiltration of the liver with cholelithiasis. 28. Calcified cholelithiasis. 29. Pancreatic atrophy with pancreatic fatty infiltration. 30. Severe multilevel lumbar spine degenerative disc disease with lumbar spinal stenosis. 31. Severe thyromegaly with substernal extension and displacement of the trachea to the right and tracheal narrowing. 32. Sinus tachycardia. 33. Status post code stroke in the emergency room for symptoms of lethargy, fatigue and dysarthria. 34. Hypomagnesemia. 35. Questionable transient ischemic infarct. 36. Hypokalemia. 37. Morbid obesity with elevated body mass index of 40. 38. Right-sided perihilar infiltrate and peribronchial thickening. 39. Thyromegaly with thyroid nodules and enlarged thyroid glands and multinodular thyroid goiter. 40. Mild mediastinal lymphadenopathy. 41. Left ventricular hypertrophy. 42. Transient lethargy, fatigue and questionable altered mental status and transient dysarthria. 43. Diabetic neuropathy. 44. Single-vessel coronary artery disease. 45. Hyperuricemia. PLAN: At this time, the patient has been ordered a repeat CMP magnesium for the morning. Current consultation, Infectious Disease. CURRENT MEDICATIONS: Colace 100 mg twice a day, doxycycline 100 mg p.o. every 12 hours, Drisdol 50,000 units weekly, Ecotrin 81 mg daily, Humalog Mix 75/25, 30 units with breakfast and dinner and Humulin regular insulin sliding scale coverage a.c. and h.s., K-Dur 20 mEq twice a day, Lasix 40 mg IV every 12 hours, Lidoderm 5% patch to the affected area, Lipitor 40 mg daily, Lovenox 40 mg subcu daily, cefepime 1 g IV every 12 hours, MiraLax 17 g twice a day, nystatin powder to the affected area, Plavix 75 mg daily, Protonix 40 mg daily, Singulair 10 mg h.s., Toprol XL 100 mg daily, Tylenol 650 mg p.o. suppository every 6 hours p.r.n. Xalatan eyedrops, Xopenex nebulizer 0.63 mg every 6 hours, Zofran 4 mg IV every 4 hours p.r.n. Chest PT, incentive spirometry, consistent carbohydrate diet, out of bed to chair, daily physical therapy, occupational therapy, ambulation therapy, gait training. Both pharmacological and non-pharmacological GI and DVT prophylaxis. . The patient will be continued to the TCU floor until approved number of days. Dictated and electronically signed, not read. Lucio Cruz MD
[2018-10-15] MEDS: POLYETHYLENE GLYCOL 3350 17 GM/Dose PACKET PO SCH (10:19)
[2018-10-15] MEDS: Lidocaine 5% Patch TD SCH (10:19)
[2018-10-15] MEDS: Nystatin 100,000 Units/gm Topical Pow(15 gm) TOP SCH (10:20)
--- NOTE | 2018-10-15 10:58 | CP.PCM.PN ---
<Napoleon Tony - Last Filed: 10/15/18 15:33> Subjective - Date & Time of Evaluation Date of Evaluation: 10/15/18 Time of Evaluation: 08:30 - Subjective Subjective: Infectious disease progress note: Patient seen and examined at bedside. No acute events overnight. Patient states that she is doing well with physical therapy. No fevers. 12 point ROS performed and negative other than as stated above. Objective - Vital Signs/Intake and Output Vital Signs (last 24 hours): Temp Pulse Resp BP Pulse Ox 98.5 F 84 18 120/73 96 10/14/18 16:00 10/15/18 07:51 10/14/18 16:00 10/15/18 07:51 10/14/18 16:00 - Medications Medications: Current Medications Acetaminophen (Tylenol 325mg Tab) 650 mg PO Q6H PRN PRN Reason: temp above 100.4 Acetaminophen (Tylenol 325mg Tab) 650 mg PO Q6H PRN PRN Reason: Headache Acetaminophen (Tylenol 650 Mg Supp) 650 mg RC Q6H PRN PRN Reason: temp above 99.5 Allopurinol (Zyloprim) 100 mg PO DAILY [facility] Last Admin: 10/15/18 10:26 Dose: 100 mg Aspirin (Ecotrin) 81 mg PO 0800 [facility] Last Admin: 10/15/18 07:49 Dose: 81 mg Atorvastatin Calcium (Lipitor) 40 mg PO DIN [facility] Last Admin: 10/14/18 17:38 Dose: 40 mg Clopidogrel Bisulfate (Plavix) 75 mg PO DAILY [facility] Last Admin: 10/15/18 10:20 Dose: 75 mg Dextrose (Dextrose 50% Inj) 0 ml IV STAT PRN; Protocol PRN Reason: Hypoglycemia Protocol Docusate Sodium (Colace) 100 mg PO BID [facility] Last Admin: 10/15/18 10:18 Dose: 100 mg Enoxaparin Sodium (Lovenox) 40 mg SC 0600 [facility]; Protocol Last Admin: 10/15/18 05:41 Dose: 40 mg Ergocalciferol (Drisdol 50,000 Intl Units Cap) 1 cap PO Q7D [facility] Last Admin: 10/14/18 10:23 Dose: 1 cap Furosemide (Lasix) 40 mg IVP 0600,1800 [facility]; Protocol Last Admin: 10/15/18 05:49 Dose: 40 mg Dextrose (Dextrose 5% In Water 1000 Ml) 1,000 mls @ 0 mls/hr IV .Q0M PRN; Shira col PRN Reason: Hypoglycemia Protocol Insulin Human Regular (Humulin R High) 0 units SC ACHS [facility]; Protocol Last Admin: 10/15/18 06:57 Dose: Not Given Insulin Lispro Protam/Lispro Human (Humalog Mix 75/25) 30 units SC ACBD [facility] Last Admin: 10/15/18 07:50 Dose: 30 unit Latanoprost (Xalatan Opht) 0 ml OU HS [facility] Last Admin: 10/14/18 22:22 Dose: 2.5 ml Levalbuterol HCl (Xopenex) 0.63 mg IH [id number] [facility] Last Admin: 10/15/18 08:07 Dose: 0.63 mg Lidocaine (Lidoderm) 1 ea TD DAILY [facility] Last Admin: 10/15/18 10:19 Dose: 1 ea Metoprolol Succinate (Toprol Xl) 100 mg PO 0800 [facility] Last Admin: 10/15/18 07:51 Dose: 100 mg Montelukast Sodium (Singulair) 10 mg PO HS [facility] Last Admin: 10/14/18 22:21 Dose: 10 mg Nystatin (Nystop Topical Powder) 0 gm TOP BID [facility] Last Admin: 10/15/18 10:20 Dose: 1 applic Ondansetron HCl (Zofran Inj) 4 mg IVP Q4H PRN PRN Reason: Nausea/Vomiting Ondansetron HCl (Zofran Inj) 4 mg IVP Q4H PRN PRN Reason: Nausea/Vomiting Pantoprazole Sodium (Protonix Ec Tab) 40 mg PO 0600 [facility] Last Admin: 10/15/18 05:50 Dose: 40 mg Polyethylene Glycol (Miralax) 17 gm PO BID [facility] Last Admin: 10/15/18 10:19 Dose: Not Given Potassium Chloride (K-Dur 20 Meq Er Tab) 20 meq PO 0800,1800 [facility]; Protocol Last Admin: 10/15/18 07:50 Dose: 20 meq - Labs Labs: 10/13/18 07:30 10/13/18 07:30 - Constitutional Appears: No Acute Distress - Head Exam Head Exam: ATRAUMATIC, NORMOCEPHALIC - Eye Exam Eye Exam: EOMI - ENT Exam ENT Exam: Mucous Membranes Moist - Respiratory Exam Respiratory Exam: Clear to Ausculation Bilateral. absent: Rales, Wheezes - Cardiovascular Exam Cardiovascular Exam: REGULAR RHYTHM, +S1, +S2 - GI/Abdominal Exam GI & Abdominal Exam: Soft. absent: Tenderness - Extremities Exam Extremities Exam: absent: Calf Tenderness, Pedal Edema - Neurological Exam Neurological Exam: Alert, Awake - Psychiatric Exam Psychiatric exam: Normal Mood - Skin Skin Exam: Dry, Warm Assessment and Plan - Assessment and Plan (Free Text) Assessment: Sepsis likely secondary to community-acquired pneumonia Elevated ESR and CRP CHF Diabetes mellitus with neuropathy and retinopathy Coronary artery disease? Heart failure? Thyroid mass Completed a 7-day course of cefepime and doxycycline. We will continue to monitor off of antibiotics Patient is at increased risk of nosocomial infection Follow-up septic work-up- Blood cultures negative Continue to monitor for any changes Case and plan to be reviewed and discussed with Dr. Naylor <Andres Naylor - Last Filed: 10/15/18 15:35> Objective - Vital Signs/Intake and Output Vital Signs (last 24 hours): Temp Pulse Resp BP Pulse Ox 98.5 F 84 18 120/73 96 10/14/18 16:00 10/15/18 07:51 10/14/18 16:00 10/15/18 07:51 10/14/18 16:00 - Labs Labs: 10/13/18 07:30 10/13/18 07:30 Attending/Attestation - Attestation I have personally seen and examined this patient.: Yes I have fully participated in the care of the patient.: Yes I have reviewed all pertinent clinical information, including history, physical exam and plan: Yes
--- NOTE | 2018-10-15 11:09 | PN ---
DATE: 10/15/2018 SUBJECTIVE: The patient is in room 321, bed 1 on TCU. The patient was seen and examined. The patient overnight nurse's notes were reviewed. No adverse events were documented, notified or called for. PHYSICAL EXAMINATION: VITAL SIGNS: T-max 98.5, heart rate 84, blood pressure 120/73. HEENT: Head is normocephalic, atraumatic. HEENT examination shows pinkish pale conjunctivae. Anicteric sclerae. No oropharyngeal lesion. NECK: No neck rigidity. CHEST: Kyphosis. CARDIOVASCULAR: S1, S2, regular rhythm. Questionable soft systolic murmur at left sternal border, right second intercostal space, left second intercostal space. LUNGS: Shows positive rhonchi, crackles left more than the right. ABDOMEN: Soft, obese, positive bowel sounds. No palpable hepatosplenomegaly. GENITALIA: Female. RECTAL: Deferred. EXTREMITIES: Shows trace swelling of the lower extremity. No pitting edema. No calf tenderness. No Homans signs. NEUROLOGIC: The patient is alert, awake, responsive, is able to move upper and lower extremity without assistance. MUSCULOSKELETAL: Shows an elevated body mass index. Gait examination is not tested. VASCULAR: Palpable pulses. Cranial nerves II-XII intact and limited. DIAGNOSTIC DATA: None from today. IMPRESSION: 1. Gait dysfunction. 2. Deconditioning. 3. Sepsis secondary to right-sided community-acquired pneumonia. 4. Questionable transient ischemic infarct with questionable lethargy, altered mental status and dysarthria resolved in the emergency room. 5. Morbid obesity. 6. Unspecified congestive heart failure. 7. Insulin-requiring diabetes mellitus with hyperglycemia. 8. Hypertension. 9. Severe degenerative joint disease of the spine, hips and knees. 10. Hyperlipidemia. 11. Hypertensive cardiovascular disease. PLAN: At this time, the patient will be continued on daily physical therapy, occupational therapy, ambulation therapy, gait training. The patient will be continued on out of bed to chair. The patient will be continued on all the medications as per the MAR of today, which is reviewed. The patient's Lasix was increased yesterday to 40 mg IV every 12. Repeat CMP ordered for tomorrow. The patient will be continued on all the medications as per the JUL of today which was reviewed. The patient will be continued on both pharmacological, non-pharmacological, GI DVT prophylaxis. The patient will be continued on TCU till approved number of days as per the patient's insurance and as per guidelines which has been updated and explained to the patient at length. The patient's lab work will be monitored when available. Dictated and electronically signed, not read. Lucio Cruz MD
--- NOTE | 2018-10-15 11:30 | PN ---
DATE: 10/15/2018 SUBJECTIVE: The patient is in bed, no acute distress, nontoxic. PHYSICAL EXAMINATION: VITAL SIGNS: Temperature is 98, blood pressure is 116/70, respiratory rate of 18. HEENT: Unremarkable. NECK: Supple. LUNGS: Decreased breath sounds. HEART: Normal S1, S2. ABDOMEN: Soft. LABORATORY DATA: Examination is noted. Microbiology is reviewed. ASSESSMENT AND PLAN: An 83-year-old female who I have seen earlier today in [facility], admitted with sepsis, community-acquired pneumonia and received seven days of antibiotics. We will discontinue the antibiotics at this point. The patient also had a negative HIDA scan. Remainder of the workup was negative. We will discontinue doxycycline and cefepime. No further antibiotics needed. The patient is at risk for developing nosocomial infections. Andres Naylor MD
--- NOTE | 2018-10-15 11:33 | CP.PCM.DIS ---
Provider - Provider Date of Admission: 10/10/18 16:43 Attending physician: Lucio Cruz MD Primary care physician: Lucio Cruz MD Consults: 10/10/18 17:27 Physician Consult Routine Comment: Consulting Provider: Andres Naylor Consulting Physician: Andres Naylor Reason for Consult: sepsis 10/10/18 22:56 Inpatient [employer] Core Measures Referral Routine Comment: Physician Instructions: Reason For Exam: EVALUATION Social Work Referral Routine Comment: NEEDS ASSISTANCE AT HOME. Physician Instructions: Reason For Exam: EVALUATION Transition In Care/Readmission Reduction Routine Comment: Physician Instructions: Reason For Exam: EVALUATION 10/14/18 15:45 Diabetic Education Referral DAILY Comment: DIABETIC EDUCATION Physician Instructions: DIABETIC EDUCATION Reason For Exam: [facility] 10/15/18 15:45 Diabetic Education Referral DAILY Comment: DIABETIC EDUCATION Physician Instructions: DIABETIC EDUCATION Reason For Exam: [facility] 10/16/18 15:45 Diabetic Education Referral DAILY Comment: DIABETIC EDUCATION Physician Instructions: DIABETIC EDUCATION Reason For Exam: [facility] 10/17/18 15:45 Diabetic Education Referral DAILY Comment: DIABETIC EDUCATION Physician Instructions: DIABETIC EDUCATION Reason For Exam: [facility] 10/18/18 15:45 Diabetic Education Referral DAILY Comment: DIABETIC EDUCATION Physician Instructions: DIABETIC EDUCATION Reason For Exam: [facility] 10/19/18 15:45 Diabetic Education Referral DAILY Comment: DIABETIC EDUCATION Physician Instructions: DIABETIC EDUCATION Reason For Exam: [facility] 10/20/18 15:45 Diabetic Education Referral DAILY Comment: DIABETIC EDUCATION Physician Instructions: DIABETIC EDUCATION Reason For Exam: [facility] 10/21/18 15:45 Diabetic Education Referral DAILY Comment: DIABETIC EDUCATION Physician Instructions: DIABETIC EDUCATION Reason For Exam: [facility] 10/22/18 15:45 Diabetic Education Referral DAILY Comment: DIABETIC EDUCATION Physician Instructions: DIABETIC EDUCATION Reason For Exam: [facility] 10/23/18 15:45 Diabetic Education Referral DAILY Comment: DIABETIC EDUCATION Physician Instructions: DIABETIC EDUCATION Reason For Exam: [facility] 10/24/18 15:45 Diabetic Education Referral DAILY Comment: DIABETIC EDUCATION Physician Instructions: DIABETIC EDUCATION Reason For Exam: [facility] Time Spent in preparation of Discharge (in minutes): 35 Hospital Course - Lab Results Lab Results: Most Recent Lab Values WBC 4.5 10^3/uL (4.5-11.0) 10/13/18 07:30 RBC 3.90 10^6/uL (3.5-6.1) 10/13/18 07:30 Hgb 10.5 g/dL (12.0-16.0) L 10/13/18 07:30 Hct 34.0 % (36.0-48.0) L 10/13/18 07:30 MCV 87.2 fl (80.0-105.0) 10/13/18 07:30 MCH 26.9 pg (25.0-35.0) 10/13/18 07:30 MCHC 30.9 g/dl (31.0-37.0) L 10/13/18 07:30 RDW 13.9 % (11.5-14.5) 10/13/18 07:30 Plt Count 216 10^3/uL (120.0-450.0) 10/13/18 07:30 MPV 11.2 fl (7.0-11.0) H 10/13/18 07:30 Neut % (Auto) 52.0 % (50.0-68.0) 10/13/18 07:30 Lymph % (Auto) 33.3 % (22.0-35.0) 10/13/18 07:30 [place] % (Auto) 10.1 % (1.0-6.0) H 10/13/18 07:30 Eos % (Auto) 4.4 % (1.5-5.0) 10/13/18 07:30 Baso % (Auto) 0.2 % (0.0-3.0) 10/13/18 07:30 Lymph # (Auto) 1.5 (1.2-3.4) 10/13/18 07:30 [place] # (Auto) 0.5 (0.1-0.6) 10/13/18 07:30 Eos # (Auto) 0.2 (0.0-0.7) 10/13/18 07:30 Baso # (Auto) 0.01 K/mm3 (0.0-2.0) 10/13/18 07:30 Absolute Neuts (auto) 2.36 (1.4-6.5) 10/13/18 07:30 Sodium 137 mmol/L (132-148) 10/13/18 07:30 Potassium 4.6 mmol/L (3.6-5.0) 10/13/18 07:30 Chloride 101 mmol/L (98-107) 10/13/18 07:30 Carbon Dioxide 30 mmol/L (21-33) 10/13/18 07:30 Anion Gap 10 (10-20) 10/13/18 07:30 BUN 23 mg/dL (7-21) H 10/13/18 07:30 Creatinine 0.8 mg/dl (0.7-1.2) 10/13/18 07:30 Est GFR ( Amer) > 60 10/13/18 07:30 Est GFR (Non-Af Amer) > 60 10/13/18 07:30 POC Glucose (mg/dL) 140 mg/dL (65-110) H 10/15/18 06:30 Random Glucose 134 mg/dL (70-110) H 10/13/18 07:30 Uric Acid 6.5 mg/dL (2.5-6.2) H 10/13/18 07:30 Calcium 9.2 mg/dL (8.4-10.5) 10/13/18 07:30 Phosphorus 3.9 mg/dL (2.5-4.5) 10/13/18 07:30 Magnesium 2.1 mg/dL (1.7-2.2) 10/13/18 07:30 Total Bilirubin 0.8 mg/dL (0.2-1.3) 10/13/18 07:30 Direct Bilirubin 0.2 mg/dL (0.0-0.4) 10/13/18 07:30 AST 39 U/L (14-36) H 10/13/18 07:30 ALT 30 U/L (7-56) 10/13/18 07:30 Alkaline Phosphatase 100 U/L (38-126) 10/13/18 07:30 Total Protein 7.4 g/dL (5.8-8.3) 10/13/18 07:30 Albumin 3.5 g/dL (3.0-4.8) 10/13/18 07:30 Globulin 3.9 gm/dL 10/13/18 07:30 Albumin/Globulin Ratio 0.9 (1.1-1.8) L 10/13/18 07:30 - Hospital Course Hospital Course: 83 year old female with past medical history of HTN, HLD, DM- 1, DJD, diabetic neuropathy, non-obstructive CAD, unspecified HF who was brought in to ED by family for slurred speech and confusion. As per daughter who was at bedside, her mom was sitting on the porch in the sun sleeping. When she woke up her speech was slurred and she was confused. The confusion and slurred speech resolved once patient was in ED. She denies any headache, changes in vision, numbness/tingling, weakness, dysphagia, chest pain or shortness of breath, abdominal pain, nausea/vomiting or diarrhea. Patient does complain of R hip pain, which has been chronic as well as chronic cough which she has had for several months. As per PMD, Dr. Cruz, patient has been complaining of this recently as an outpatient and was supposed to get work up for pneumonia. In the ED, code stroke was called. NIHSS was 3. Patient did not receive TPA. Neurology was consulted for the patient's TIA type symptoms and all imaging test, including, but not limited to MRI of brain and head were negative. The patient initially had a fever with a low procalcitonin low and elevated inflammatory markes, along with symptoms suggestive of bronchitis. She was treated empirically with Cefepime and Doxycycline for 7 days with close monitoring by Infectious disease. She also underwent imaging to rule out any occult infections, including, but not limited to CT of the chest, abdomen, and pelvis; US of the abdomen, and HIDA scan, all of which were negative. The imaging findings did redemonstrate a large, multinodular goiter for which ENT was consulted and recommended FNA to reduce the size of the mass. The patient was medically stabilized and then transferred to the TCU for rehabilitation for her deconditioned state. Within 4.5 days the patient was cleared by Physical therapy for home with services and thus discharged with the below written instructions and recommendations. - Date & Time of H&P Date of H&P: 10/15/18 Time of H&P: 11:48 Discharge Exam - Head Exam Head Exam: ATRAUMATIC, NORMOCEPHALIC - Eye Exam Eye Exam: EOMI, Normal appearance - ENT Exam ENT Exam: Mucous Membranes Moist, Normal Oropharynx - Neck Exam Neck exam: Normal Inspection - Respiratory Exam Respiratory Exam: Clear to PA & Lateral, NORMAL BREATHING PATTERN - Cardiovascular Exam Cardiovascular Exam: RRR, +S1, +S2 - Extremities Exam Extremities exam: normal inspection - Neurological Exam Neurological exam: Alert, CN II-XII Intact, Oriented x3 - Psychiatric Exam Psychiatric exam: Normal Affect, Normal Mood - Skin Skin Exam: Dry, Intact, Normal Color, Warm Discharge Plan - Discharge Medications Prescriptions: Ezetimibe [Zetia] 10 mg PO DAILY #30 tab Insulin Lispro Mix 75/25 [humalog Mix 75/25 75 U/Ml-25 U/Ml 10 Ml] 50 units SC Q12 #1 ml Nystatin [Nystop Topical Powder] 15 gm TOP BID #1 bottle - Follow Up Plan Condition: GOOD Disposition: HOME/ ROUTINE Additional Instructions: 1) Resume all home medications, unless otherwise indicated 2) Follow up with Dr. Cruz in office next week. Referrals: Lucio Cruz MD [Primary Care Provider] -
== END 2018-10-15 15:08 | disposition home or self-care (01) | DRG 91 ==
LOC: TRCU 16:43
PROVIDERS: ADMIT Internal Medicine; ATTEND Internal Medicine
PROC: 3E0F7GC Introduction of Other Therapeutic Substance into Respiratory Tract, Via Natural or Artificial Opening (ICD-10-PCS; 2018-10-10)
PROC: F07Z9FZ Gait Training/Functional Ambulation Treatment using Assistive, Adaptive, Supportive or Protective Equipment (ICD-10-PCS; principal; 2018-10-11)
PROC: F08Z4FZ Home Management Treatment using Assistive, Adaptive, Supportive or Protective Equipment (ICD-10-PCS; 2018-10-11)
DX: R26.89 Other abnormalities of gait and mobility (principal); A41.9 Sepsis, unspecified organism; J18.9 Pneumonia, unspecified organism; I50.30 Unspecified diastolic (congestive) heart failure; Z68.41 Body mass index [BMI] 40.0-44.9, adult; Z79.2 Long term (current) use of antibiotics; I11.0 Hypertensive heart disease with heart failure; I25.10 Atherosclerotic heart disease of native coronary artery without angina pectoris; E10.40 Type 1 diabetes mellitus with diabetic neuropathy, unspecified; E10.65 Type 1 diabetes mellitus with hyperglycemia; E10.319 Type 1 diabetes mellitus with unspecified diabetic retinopathy without macular edema; E78.5 Hyperlipidemia, unspecified; E55.9 Vitamin D deficiency, unspecified; E04.2 Nontoxic multinodular goiter; E66.01 Morbid (severe) obesity due to excess calories; M54.30 Sciatica, unspecified side; E78.00 Pure hypercholesterolemia, unspecified; H40.9 Unspecified glaucoma; K59.00 Constipation, unspecified; K76.0 Fatty (change of) liver, not elsewhere classified; K80.20 Calculus of gallbladder without cholecystitis without obstruction; M48.061 Spinal stenosis, lumbar region without neurogenic claudication; M51.36 Other intervertebral disc degeneration, lumbar region; Z79.4 Long term (current) use of insulin